=== PATIENT | female | born 1935 | race Native Hawaiian/Other Pacific Islander ===

== ENCOUNTER 2017-01-09 06:46 | Observation (INO) | payer MEDICARE ==
--- NOTE | 2017-01-09 08:01 | C.PDOC ---
History Of Present Illness 81 y/o female presents to ED for evaluation of left shoulder, forearm and wrist pain s/p fall this morning. Pt states that she slipped and fell while walking to the bathroom this morning, injuring the left side of her body. Sustained deformed fracture to left wrist. Denies head injury, or LOC. Otherwise, pt denies , headache, dizziness, chest pain, shortness of breath, fever, or chills. Time Seen by Provider: 01/09/17 07:32 Chief Complaint (Nursing): Upper Extremity Problem/Injury History Per: Patient History/Exam Limitations: no limitations Onset/Duration Of Symptoms: Hrs Current Symptoms Are (Timing): Still Present Quality: "Pain" Exacerbating Factor(s): Nothing Recent travel outside of the [place]: No Additional History Per: Patient Past Medical History Reviewed: Historical Data, Nursing Documentation, Vital Signs Vital Signs: Last Vital Signs Temp 98.1 F 01/09/17 06:56 Pulse 94 H 01/09/17 06:56 Resp 16 01/09/17 06:56 BP 185/73 H 01/09/17 06:56 Pulse Ox 97 01/09/17 08:36 - Medical History PMH: Arthritis, Asthma, Diabetes, HTN - [facility] Procedures ESOPHAGOGASTRODUODENOSCOPY [EGD] W/CLOSED BIOPSY (05/29/01) Family History: States: No Known Family Hx - Social History Hx Tobacco Use: No Hx Alcohol Use: No Hx Substance Use: No - Immunization History Hx Tetanus Toxoid Vaccination: No Hx Influenza Vaccination: Yes Hx Pneumococcal Vaccination: Yes Review Of Systems Except As Marked, All Systems Reviewed And Found Negative. Constitutional: Negative for: Fever, Chills Cardiovascular: Negative for: Chest Pain, Palpitations Respiratory: Negative for: Cough, Shortness of Breath Gastrointestinal: Negative for: Nausea, Vomiting, Abdominal Pain Musculoskeletal: Positive for: Shoulder Pain (left), Hand Pain (left wrist pain) . Negative for: Neck Pain, Back Pain Skin: Negative for: Rash, Bruising Neurological: Negative for: Weakness, Numbness, Headache, Dizziness Physical Exam - Physical Exam Appears: Non-toxic, No Acute Distress Skin: Normal Color, Warm, Dry, No Rash Head: Atraumatic, Normacephalic Eye(s): bilateral: Normal Inspection Oral Mucosa: Moist Neck: Supple Chest: Symmetrical Respiratory: No Accessory Muscle Use Extremity: Capillary Refill (<2 sec.), No Deformity Neurological/Psych: Oriented x3, Normal Speech, Normal Motor, Normal Sensation ED Course And Treatment O2 Sat by Pulse Oximetry: 97 (on RA) Pulse Ox Interpretation: Normal Progress Note: Left forearm, shoulder, and wrist x-ray ordered and reviewed. Pt was given Motrin for pain. Medical Decision Making Medical Decision Making: Discussed case with Dr. Kapadia as per request of Dr. Orellana. Will place a splint. Patient for OR today. Disposition Discussed With DrBen: Sangita Sun Doctor Will See Patient In The: Hospital Counseled Patient/Family Regarding: Studies Performed, Diagnosis - Disposition Disposition: HOSPITALIZED Disposition Time: 09:32 Condition: GUARDED Forms: Calpian (Kiswahili) - Clinical Impression Clinical Impression: Fracture dislocation of left wrist - Scribe Statement The provider has reviewed the documentation as recorded by the Scribe George Chappell All medical record entries made by the Scribe were at my direction and personally dictated by me. I have reviewed the chart and agree that the record accurately reflects my personal performance of the history, physical exam, medical decision making, and the department course for this patient. I have also personally directed, reviewed, and agree with the discharge instructions and disposition. Decision To Admit - Pt Status Changed To: Hospital Disposition Of: Observation - . Bed Request Type: Regular Patient Diagnosis: Fracture dislocation of left wrist
--- NOTE | 2017-01-09 08:41 | RAD ---
PROCEDURE: Radiographs of the Left Shoulder HISTORY: fall COMPARISON: No prior. FINDINGS: BONES: No fracture. JOINTS: Glenohumeral and acromioclavicular moderate osteoarthritis. SOFT TISSUES: Normal. OTHER FINDINGS: None. IMPRESSION: Glenohumeral and acromioclavicular moderate osteoarthritis.
--- NOTE | 2017-01-09 08:49 | RAD ---
PROCEDURE: Left Wrist Radiographs. HISTORY: fall COMPARISON: None. FINDINGS: BONES: Distal radial epiphyseal/radial styloid comminuted fracture with volar and radial sided fracture displacements. Major fracture fragment is radial and volar. Ulnar styloid fracture -well corticated - age indeterminate. With the distal radial comminuted, displaced impacted fractures with radiocarpal extension, the distal ulna is positive 7 mm variance and dorsally subluxed. Minimal 5th metacarpal shaft deformity consistent with remote fracture. Well corticated ossification chip and/or osseous avulsion 1st digit dorsal distal phalanx. JOINTS: As above SOFT TISSUES: Sensitive surrounding soft tissue edema OTHER FINDINGS: None. IMPRESSION: Multiple distal radial comminuted fractures -displaced ; radiocarpal extension
--- NOTE | 2017-01-09 10:07 | RAD ---
PROCEDURE: CHEST RADIOGRAPH, 1 VIEW HISTORY: Shortness of breath COMPARISON: 03/18/2014 FINDINGS: LUNGS: Mild venous congestion. Right hilar prominence. PLEURA: No pneumothorax or pleural fluid seen. CARDIOVASCULAR: Mild cardiomegaly. OSSEOUS STRUCTURES: Degenerative changes in the spine and shoulders. VISUALIZED UPPER ABDOMEN: Normal. OTHER FINDINGS: None. IMPRESSION: Mild venous congestion. Right hilar prominence.
[2017-01-09] MEDS ORDERED: Morphine 4 MG/ML VIAL ONE (10:09)
[2017-01-09 10:14] LABS: BASO # 0.1 K/uL (0.0-0.2); BASO % 0.5 % (0.0-2.0); EOS # 0.1 K/uL (0.0-0.7); EOS % 0.8 % (0.0-4.0); HEMATOCRIT 33.6 % (34.0-47.0); LYMPH # 2.3 K/uL (1.0-4.3); LYMPH % 22.4 % (20.0-40.0); MEAN CELL VOLUME 85.6 fL (81.0-99.0); MEAN CORPUSCULAR HEMOGLOBIN 28.1 pg (27.0-31.0); MEAN CORPUSCULAR HGB CONC 32.9 g/dL (33.0-37.0); MEAN PLATELET VOLUME 7.7 fL (7.2-11.7); MONO # 0.6 K/uL (0.0-0.8); MONO % 5.6 % (0.0-10.0); RED CELL DISTRIBUTION WIDTH 13.2 % (11.5-14.5); WHITE BLOOD COUNT 10.3 K/uL (4.8-10.8)
[2017-01-09 10:28] LABS: POTASSIUM 5.1 mmol/L (3.6-5.2)
[2017-01-09 10:31] LABS: ALB/GLOB RATIO 1.2 (1.0-2.1); BILIRUBIN,TOTAL 0.5 mg/dL (0.2-1.3); TOTAL PROTEIN 7.5 g/dL (6.3-8.3)
[2017-01-09 10:32] LABS: CALCIUM 9.7 mg/dl (8.6-10.4)
[2017-01-09 12:16] LABS: INR 0.9
--- NOTE | 2017-01-09 13:13 | RAD ---
PROCEDURE: Radiographs of the Left Forearm HISTORY: fall COMPARISON: None available. TECHNIQUE: Frontal and lateral views obtained. FINDINGS: BONES: Distal radial epiphyseal/radial styloid comminuted fracture with volar and radial sided fracture displacements. Major fracture fragment is radial and volar. Ulnar styloid fracture -well corticated - age indeterminate. With the distal radial comminuted, displaced impacted fractures with radiocarpal extension, the distal ulna is positive 7 mm variance and dorsally subluxed.Minimal 5th metacarpal shaft deformity consistent with remote fracture. Well corticated ossification chip and/or osseous avulsion 1st digit dorsal distal phalanx. JOINT SPACES: Distal radial comminuted fracture with intra-articular/radiocarpal extension OTHER FINDINGS: O proximal arm fractures. Minimal osseous hypertrophic changes medial lateral humeral epicondylar level and or contiguous calcific tendinopathy IMPRESSION: Distal radial comminuted displaced fractures with intra-articular/radiocarpal extension and impaction
[2017-01-09] MEDS ORDERED: Dextrose 5%/0.9% NS 1,000 ML IV SCH ×2 (13:15→13:43)
--- NOTE | 2017-01-09 13:45 | CP.PCM.PN ---
Subjective - Date & Time of Evaluation Date of Evaluation: 01/09/17 Time of Evaluation: 11:00 - Subjective Subjective: Orthopedic consultation requested Dr. Kapadia, full consult to follow 81F PMH: HTN, DM, asthma complains of left wrist pain and deformity after fall today. She denies numbness/tingling. She says she has pain on the left side of her body, and says now she has left knee pain. She Denies any CP/SOB prior to fall. Pain is controlled by pain medication. PSH: hysterectomy, c section All penicillin Objective - Vital Signs/Intake and Output Vital Signs (last 24 hours): Temp Pulse Resp BP Pulse Ox 98.1 F 75 18 177/70 H 96 01/09/17 06:56 01/09/17 13:05 01/09/17 13:05 01/09/17 13:05 01/09/17 13:05 - Medications Medications: Current Medications Home Med (Clonidine [Clonidine]) 1 tab PO BID MARCELINO Dextrose/Sodium Chloride (Dextrose 5%/0.9% Ns 1000 Ml) 1,000 mls @ 60 mls/hr IV .[id number] MARCELINO Losartan Potassium (Cozaar) 25 mg PO DAILY MARCELINO Montelukast Sodium (Singulair) 10 mg PO HS MARCELINO Oxycodone/Acetaminophen (Percocet 5/325 Mg Tab) 1 tab PO Q4H PRN PRN Reason: Pain, Mild (1-3) Stop: 01/12/17 13:17 Rosuvastatin Calcium (Crestor) 5 mg PO HS MARCELINO - Labs Labs: 01/09/17 10:08 01/09/17 10:08 PT 10.5 SECONDS (9.7-12.2) 01/09/17 11:50 INR 0.9 01/09/17 11:50 APTT 29 SECONDS (21-34) 01/09/17 11:50 - Constitutional Appears: Well, No Acute Distress - Extremities Exam Additional comments: splint intact: +ROM fingers flex/ext fingers at DIP/PIP/MCP joints and thumb. Sensation intact to rad/ulnar/med nerves with cap refill < 2 sec, all fingers warm. Left knee: no swelling, deformity, discoloration. NVID calves soft NT neg homans , skin to lower 1/2 B legs shiny with some mild peripheral edema noted. TTP lateral joint line left knee, mild pain with ROM (full, pt with history DJD) Assessment and Plan (1) Fracture dislocation of left wrist Assessment & Plan: splint elevation pain medication per Dr. Kapadia for exfix vs ORIF today NPO labs reviewed BUN > 50, IVF started patient seen by Dr. Sun for OR today Status: Acute Past Patient History - Past Medical History & Family History Past Medical History?: Yes - Past Social History Smoking Status: Never Smoked - CARDIAC Hx Hypertension: Yes - PULMONARY Hx Asthma: Yes - ENDOCRINE/METABOLIC Hx Diabetes Mellitus Type 2: Yes - MUSCULOSKELETAL/RHEUMATOLOGICAL Hx Arthritis: Yes - PSYCHIATRIC Hx Substance Use: No - SURGICAL HISTORY Hx Surgeries: Yes Hx Section: Yes (x3) Hx Hysterectomy: Yes - ANESTHESIA Hx Anesthesia: Yes Hx Anesthesia Reactions: No Hx Malignant Hyperthermia: No
--- NOTE | 2017-01-09 15:05 | RAD ---
PROCEDURE: Left Knee Radiographs. HISTORY: Pain. COMPARISON: None. FINDINGS: BONES: No fracture. JOINTS: Diffuse osteophytosis consistent with osteoarthritis. Medial femoral tibial joint space narrow. Lateral oblique impedes joint spacing assessment JOINT EFFUSION: None suggested OTHER FINDINGS: Faint posterior thigh arterial vascular calcifications IMPRESSION: Arthrosis. No fracture or lytic lesion
[2017-01-09] MEDS ORDERED: Clindamycin 600mg/50ml NS 600 MG/50 ML BAG IVPB ONE (16:57)
[2017-01-09] MEDS ORDERED: Bupivacaine 0.25% Inj(30mL) ONE ×2 (17:12→19:42)
[2017-01-09] MEDS ORDERED: Sodium Chloride 0.9% 500 ML IV ONE (17:25)
[2017-01-09] MEDS ORDERED: Rocuronium 10 mg/ml (10 ml) ONE (17:30)
[2017-01-09] MEDS ORDERED: Propofol 10 mg/ml Inj (20 ML) ONE (17:30)
[2017-01-09] MEDS ORDERED: CLONIDINE PO SCH (18:00)
[2017-01-09] MEDS ORDERED: Lactated Ringer's 1,000 ML IV ONE (18:05)
[2017-01-09] MEDS: Bupivacaine 0.5% Inj(30mL) ONE ×2 (18:26→19:22)
--- NOTE | 2017-01-09 18:56 | CP.PCM.HP ---
History of Present Illness - History of Present Illness History of Present Illness: Chief complaint: Fall and injury to the left forearm History present illness: 80-year-old female with a history of bronchial asthma, hypertension, diabetes, hypercholesteremia, allergic rhinitis, osteoporosis, diabetic neuropathy, bronchial asthma and bronchitis. Patient also has a chronic renal insufficiency. Chronic pedal edema. Patient came to the emergency room after a fall happened today this morning in the house, while she was getting ready to come to the office. She tripped and fell on the left side of the body, and she landed on her left side and she started having pain over the left wrist and the deformity. Patient came to the emergency room, and noted to have a possible fracture of the left distal radius. And needed further management. Patient also having significant problem in walking, swelling and pain in the left leg. She is otherwise alert awake oriented Past medical history: Diabetes hypertension and hypercholesteremia bronchial asthma renal insufficiency chronic pedal edema Allergy and patient is allergic to penicillin. Surgical history: on history to me Personal history nonsmoker nonalcoholic, lives with the family review of system: Currently having pain over the left side of the body, complaining of pain in the swelling in the left wrist and left ankle. No chest pain or shortness of breath, denies an abdominal swelling, bilateral leg swelling noted Medications: Patient currently taking omeprazole, zolpidem, gabapentin, losartan, glimepride Levemir, Lasix Vital signs reviewed No neck vein distention noted Chest good air entry bilaterally, no wheezing or rales noted CVS regular heart sound, no murmur noted Abdomen soft, nontender. Patient has a edema bilaterally. Patient has a significant deformity in the left wrist, and associated swelling. [employer]SW[employer] alert awake oriented 3, no functional neurological deficit, X-ray of the left wrist showing evidence of comminuted distal radial fracture left upper extremity. Chest x-ray nonspecific. EKG nonspecific. Medications reviewed Assessment and recommendation: 80-year-old female with history of diabetes hypertension and hypercholesteremia , bronchial asthma , pedal edema admitted now with left radial fracture, following a fall, and also significant difficulty in getting around. Patient is having difficult time in standing up, and walking. She will need a further management including subacute rehabilitation, physical therapy. Surgical evaluation by orthopedic. Possible intervention. And will follow the patient. Glucose control DVT prophylaxis Present on Admission - Present on Admission Any Indicators Present on Admission: No History of DVT/PE: No History of Uncontrolled Diabetes: No Urinary Catheter: No Decubitus Ulcer Present: No Past Patient History - Past Medical History & Family History Past Medical History?: Yes - Past Social History Smoking Status: Never Smoked - CARDIAC Hx Hypertension: Yes - PULMONARY Hx Asthma: Yes - ENDOCRINE/METABOLIC Hx Diabetes Mellitus Type 2: Yes - MUSCULOSKELETAL/RHEUMATOLOGICAL Hx Arthritis: Yes - PSYCHIATRIC Hx Substance Use: No - SURGICAL HISTORY Hx Surgeries: Yes Hx Section: Yes (x3) Hx Hysterectomy: Yes - ANESTHESIA Hx Anesthesia: Yes Hx Anesthesia Reactions: No Hx Malignant Hyperthermia: No Meds Allergies/Adverse Reactions: Allergies Allergy/AdvReac Type Severity Reaction Status Date / Time Penicillins Allergy Verified 01/09/17 07:13 Results - Vital Signs Recent Vital Signs: Last Vital Signs Temp 98.1 F 01/09/17 06:56 Pulse 81 01/09/17 16:07 Resp 18 01/09/17 16:07 BP 196/68 H 01/09/17 16:07 Pulse Ox 97 01/09/17 16:07 - Labs Result Diagrams: 01/09/17 10:08 01/09/17 10:08 Labs: Laboratory Results - last 24 hr 01/09/17 01/09/17 01/09/17 10:08 10:08 10:08 WBC 10.3 RBC 3.92 Hgb 11.0 Hct 33.6 L MCV 85.6 MCH 28.1 MCHC 32.9 L RDW 13.2 Plt Count 162 MPV 7.7 Neut % (Auto) 70.7 Lymph % (Auto) 22.4 [facility] % (Auto) 5.6 Eos % (Auto) 0.8 Baso % (Auto) 0.5 Neut # 7.3 H Lymph # 2.3 [facility] # 0.6 Eos # 0.1 Baso # 0.1 PT INR APTT Sodium 139 Potassium 5.1 Chloride 103 Carbon Dioxide 23 Anion Gap 18 BUN 59 H Creatinine 1.7 H Est GFR ( Amer) 35 Est GFR (Non-Af Amer) 29 POC Glucose (mg/dL) Random Glucose 149 H Calcium 9.7 Total Bilirubin 0.5 AST 35 ALT 28 Alkaline Phosphatase 91 Total Protein 7.5 Albumin 4.1 Globulin 3.4 Albumin/Globulin Ratio 1.2 Blood Type B POSITIVE Blood Type Confirm B POSITIVE Antibody Screen Positive Antibody Identification Anti E 01/09/17 01/09/17 11:50 15:01 WBC RBC Hgb Hct MCV MCH MCHC RDW Plt Count MPV Neut % (Auto) Lymph % (Auto) [facility] % (Auto) Eos % (Auto) Baso % (Auto) Neut # Lymph # [facility] # Eos # Baso # PT 10.5 INR 0.9 APTT 29 Sodium Potassium Chloride Carbon Dioxide Anion Gap BUN Creatinine Est GFR ( Amer) Est GFR (Non-Af Amer) POC Glucose (mg/dL) 99 Random Glucose Calcium Total Bilirubin AST ALT Alkaline Phosphatase Total Protein Albumin Globulin Albumin/Globulin Ratio Blood Type Blood Type Confirm Antibody Screen Antibody Identification
[2017-01-09] MEDS ORDERED: Neostigmine Methylsulfate 3mg/3ml Syringe IV ONE (19:23)
[2017-01-09] MEDS: HYDROmorphone 0.5 mg/0.5 ml ISec IVP PRN ×5 (19:45→20:48)
[2017-01-09] MEDS: Albuterol-Ipratrop 3 mg / 0.5 (3 ml) UD INH SCH (20:23)
[2017-01-09] MEDS: (Novolin R) Insulin Human Regular 100 units/ml vial SC SCH (22:21)
[2017-01-09 22:36] VITALS: RESP 20
[2017-01-10] MEDS: Clindamycin 300 MG in Sodium Chloride 0.9% 50 ML IVPB SCH ×3 (00:32→12:06)
[2017-01-10] MEDS: Albuterol-Ipratrop 3 mg / 0.5 (3 ml) UD INH SCH ×3 (01:18→13:38)
[2017-01-10] MEDS ORDERED: HYDROmorphone 1 mg/ml ISec IVP STA (01:25)
--- NOTE | 2017-01-10 05:33 | OP ---
PROCEDURE DATE: 01/09/2017 PREOPERATIVE DIAGNOSIS: Comminuted fracture of the distal radius with displacement. POSTOPERATIVE DIAGNOSES: Severely comminuted fracture with displacement and severe osteoporosis. PROCEDURES: 1. Closed reduction, internal fixation, external fixation with 2 K wires. 2. Close reduction of the fracture and application of external fixators with insertion of 2 pins in the radius and 1 pin in the metacarpal bone and application of stalked external fixator. 3. Local anesthesia block with Marcaine. 4. Application of anterior volar splint. PROCEDURE: Prior to the procedure, risk and benefits of the surgery, prognosis and complications were explained to the patient and patient's including infection, cardiac, malunion, nonunion, need for future surgery, permanent weakness, permanent numbness, possible loss of life and limb and all the associated complications of diabetes mellitus and the patient fully understand and is agreeable. The left wrist was identified as the wrist to be operated, was prepped and draped in the usual manner. Multiplane fluoroscopy was used throughout the procedure. The patient was found to have severe comminution of the distal radius and also severe osteopenia and osteoporosis. At this time, it was decided to put an external fixator, limited internal fixation. Two 2.5 mm pins were inserted to the mid radius under fluoroscopic guidance and two metacarpal pins were introduced into the second metacarpal, one in the base, one in the shaft. Due to severe osteopenia, one of the pins was not fixing the second metacarpal. At this point, we decided to do a close reduction and satisfactory alignment was obtained; however, noted was severe comminution bone loss at the fracture site. The proximal and distal pin systems were connected with an external fixator and it was stalked with an additional connecting bar that is used for finger fractures and once this construct was obtained, x-ray revealed satisfactory alignment of the fracture. At this time, two K wires were introduced from the radial styloid process to the shaft to the radius and the pins went across the fracture site in to the radial aspect of the distal radius and the pin sites were thoroughly debrided, closed and Marcaine was used for local anesthesia block. Anterior volar splint was obtained. Multiplane fluoroscopy pictures revealed that the fracture was reduced to acceptable alignment. However noted was severe comminution and osteoporosis of fracture. The patient tolerated the procedure well. Left the operative room to the recovery room in satisfactory condition. Diane Kapadia MD
[2017-01-10 07:07] LABS: BASO % 0.2 % (0.0-2.0); HEMATOCRIT 32.6 % (34.0-47.0); LYMPH # 0.6 K/uL (1.0-4.3); LYMPH % 4.2 % (20.0-40.0); MEAN CORPUSCULAR HEMOGLOBIN 27.3 pg (27.0-31.0); MEAN CORPUSCULAR HGB CONC 31.7 g/dL (33.0-37.0); MEAN PLATELET VOLUME 7.6 fL (7.2-11.7); MONO # 0.8 K/uL (0.0-0.8); MONO % 5.9 % (0.0-10.0); NRBC % 0.1 % (0.0-2.0); PLATELET COUNT 169 K/uL (130-400); RED CELL DISTRIBUTION WIDTH 13.8 % (11.5-14.5); WHITE BLOOD COUNT 14.4 K/uL (4.8-10.8)
[2017-01-10 07:45] LABS: ALB/GLOB RATIO 1.2 (1.0-2.1); BILIRUBIN,TOTAL 0.6 mg/dL (0.2-1.3); TOTAL PROTEIN 7.1 g/dL (6.3-8.3)
[2017-01-10] MEDS ORDERED: (Novolin R) Insulin Human Regular 100 units/ml vial SC ONE (07:45)
[2017-01-10] MEDS: (Novolin R) Insulin Human Regular 100 units/ml vial SC SCH ×3 (07:45→18:41)
[2017-01-10 07:46] LABS: CALCIUM 8.9 mg/dl (8.6-10.4)
[2017-01-10] MEDS: Oxycodone/Acetaminophen 5/325 mg Tab PO PRN ×2 (07:48→13:25)
[2017-01-10 09:12] LABS: MYELOCYTE 1 % (0-0); NEUTROPHIL 90 % (50-75); TOTAL CELLS COUNTED 100
--- NOTE | 2017-01-10 09:37 | CON ---
DATE: I was called in by Dr. Sun to see this patient. HISTORY OF PRESENT ILLNESS: This elderly female sustained a fall on day of admission and sustained an injury to the left wrist area. She was initially seen in the emergency room at the [facility] where she was diagnosed with comminuted fracture of the distal radius. She was treated by stabilization in a splint. Examination revealed an elderly female in an anterior splint and complaining of severe pain over the left wrist area. Range of motion of the wrist is painful. X-rays reveals a comminuted fracture of the left distal radius with severe osteoporosis. I discussed the treatment options with the patient and the patient's . The options are now open reduction with internal fixation, possible external fixation, and limited internal fixation. Prognosis and complications including infection, cardiac, pulmonary, recurrence, failure of fixation, need for future surgery, permanent weakness, permanent numbness, possible loss of life and limb, etc., are explained. The patient fully understands this and agreeable. All the questions were answered. The patient has diabetes mellitus. On the other associated complication of diabetes mellitus, this fracture surgery was explained. The patient fully understands and is agreeable. All the questions were answered. Diane Kapadia MD
--- NOTE | 2017-01-10 09:59 | RAD ---
PROCEDURE: Intraoperative fluoroscopy HISTORY: LEFT DISTAL RADIUS FX COMPARISON: Not available TECHNIQUE: Intraoperative fluoroscopy was provided for ORIF distal radial fracture. Total time of fluoroscopy was 108.6 seconds. FINDINGS: Multiple fluoroscopic spot films are submitted. Films are on file for review. IMPRESSION: Fluoroscopy provided.
[2017-01-10] MEDS ORDERED: Sod Polystyrene Sulf 15 gm/60 ml Oral Susp PO ONE ×2 (10:30→12:00)
--- NOTE | 2017-01-10 11:18 | RAD ---
PROCEDURE: Left Foot Radiographs. HISTORY: trauma COMPARISON: None. FINDINGS: BONES: No fractures appreciated or suspicious lytic or blastic changes. Diffuse osteopenia is appreciate suggesting osteoporosis. JOINTS: Joint space narrowing and articular cortical sclerosis appreciate throughout the interphalangeal joints diffusely as well as the tarsal tarsal and tarsometatarsal articulations compatible with osteoarthritis. Lesser similar changes appears of the 1st metatarsophalangeal with a mild hallux valgus deformity appreciated. SOFT TISSUES: Normal. OTHER FINDINGS: None. IMPRESSION: No displaced fracture identified on acute basis. Diffuse osteopenia suggests osteoporosis. Diffuse degenerate changes are noted as discussed above.
[2017-01-10] MEDS: (Novolin 70/30) NPH/Regular 70/30 Units/ml 10 ml vial SC SCH ×2 (12:07→18:40)
--- NOTE | 2017-01-10 12:25 | PCM.ANESB1 ---
Interscalene Block - Brachial Plexus Date of Procedure: 01/10/17 Procedure Performed: Interscalene Block of Brachial Plexus Left - Procedure Interscalene Block of Brachial Plexus: This procedure was explained to the patient that it is for post-operative pain management. Consent was obtained after a thorough discussion with the patient regarding the benefits and possible complications of local anesthetic block of the Brachial Plexus at the Interscalene area. The patient was brought to the Operating Room and standard monitors were applied. Time out was held with the circulating nurse to confirm the correct surgery and appropriate block. After applying Oxygen by nasal cannula and administering IV Sedation, the patient's head was gently rotated away from the _LEFT_operative shoulder and the anterior scalene groove was carefully palpated. The ultrasound transducer was then applied to the skin in the transverse plane and the brachial plexus was visualized lateral to the carotid artery and in between the anterior and middle scalene muscles. After identification,the anterior lateral portion of the neck was prepped with Betadine solution three times and Lidocaine 1% was injected subcutaneously for topical analgesia. At this point, a # 22 gauge Stimuplex 2 inches insulated needle was inserted into the interscalene groove and directed in a caudal and midline direction. The needle was inserted lateral to the ultrasound transducer in-plane towards the brachial plexus in a [id number] direction. Needle advancement was performed carefully under direct ultrasound visualization. After repeated negative aspiration,_were injected and this was followed with _10__ cc of ___ 0.25_ % _bupivicaine__. Under ultrasound guidance the local anesthetics were observed surrounding the roots of the brachial plexus. The needle was removed intact and sterile dressing was applied. The patient had stable vital signs, was conscious and in no apparent distress. The patient tolerated the supraclavicular block of the brachial plexus well with stable vital signs, no complaints.
[2017-01-10] MEDS: Saccharomyces Boulardi 250 mg Cap PO SCH ×2 (13:25→18:40)
--- NOTE | 2017-01-10 13:49 | CP.PCM.PN ---
Subjective - Date & Time of Evaluation Date of Evaluation: 01/10/17 Time of Evaluation: 13:48 - Subjective Subjective: Patient states she has a lot of pain in her hand. the medication helps, but doesn't last very long. Also complains of nausea, no vomiting. New complaint of foot and ankle pain today. Objective - Vital Signs/Intake and Output Vital Signs (last 24 hours): Temp Pulse Resp BP Pulse Ox 97.5 F L 93 H 20 146/66 96 01/10/17 07:00 01/10/17 13:27 01/10/17 07:00 01/10/17 13:27 01/10/17 07:00 Intake and Output: 01/10/17 01/10/17 06:59 18:59 Intake Total 760 Output Total 100 Balance 660 - Medications Medications: Current Medications Albuterol/Ipratropium (Duoneb 3 Mg/0.5 Mg (3 Ml) Ud) 3 ml INH RQ6 ON LICENSE OF [facility] Last Admin: 01/10/17 13:38 Dose: 3 ml Clonidine HCl (Catapres) 0.1 mg PO BID ON LICENSE OF [facility] Last Admin: 01/10/17 09:25 Dose: 0.1 mg Hydralazine HCl (Apresoline) 25 mg PO Q8 ON LICENSE OF [facility] Last Admin: 01/10/17 13:25 Dose: 25 mg Clindamycin Phosphate 300 mg/ (Sodium Chloride) 52 mls @ 100 mls/hr IVPB Q6H ON LICENSE OF [facility] Last Admin: 01/10/17 12:06 Dose: 100 mls/hr Insulin Human Isoph/Insulin Regular (Novolin 70/30 (70/30 Units/Ml) 10 Ml) 20 units SC BID ON LICENSE OF [facility] Last Admin: 01/10/17 12:07 Dose: 20 units Insulin Human Regular (Novolin R) 0 unit SC ACHS MARCELINO PRN Reason: Protocol Last Admin: 01/10/17 12:07 Dose: 8 unit Montelukast Sodium (Singulair) 10 mg PO HS ON LICENSE OF [facility] Last Admin: 01/09/17 22:45 Dose: 10 mg Ondansetron HCl (Zofran Inj) 4 mg IVP Q6 PRN PRN Reason: Nausea/Vomiting Last Admin: 01/10/17 13:25 Dose: 4 mg Oxycodone/Acetaminophen (Percocet 5/325 Mg Tab) 1 tab PO Q4H PRN PRN Reason: Pain, Mild (1-3) Stop: 01/12/17 13:17 Last Admin: 01/10/17 13:25 Dose: 1 tab Rosuvastatin Calcium (Crestor) 5 mg PO HS MARCELINO Saccharomyces Boulardii (Florastor) 250 mg PO TID MARCELINO Last Admin: 01/10/17 13:25 Dose: 250 mg - Labs Labs: 01/10/17 06:59 01/10/17 06:59 PT 10.5 SECONDS (9.7-12.2) 01/09/17 11:50 INR 0.9 01/09/17 11:50 APTT 29 SECONDS (21-34) 01/09/17 11:50 - Extremities Exam Additional comments: lue: dressing and sling intact. no visible drainage. Patient reluctant to move fingers, but does flex and extend all fingers limited ROM incl thumb. Sensation intact. Fingers warm, good cap refill Assessment and Plan (1) Fracture dislocation of left wrist Assessment & Plan: POD#1 s/p left wrist percutaneous pinning and external fixation -pain meds -zofran -elevation -cont OT/PT, encourage OOB -ortho stable for d/c home and follow up Dr. Kapadia 7-10 days call for appointment -keep dressing clean, dry and intact -d/w Dr. Kapadia, agrees with above Status: Acute Radiology Interpretation - Radiology Interpretation #2 Interpretation: Patient Name / ID : JEFF HOYOS Z / [id number] Exam Date : 01/10/2017 10:44:14 ( Approved ) Study Comment : Sex / Age : F / 81Y Creator : Chava De Leon MD Dictator : Chava De Leon MD Clinical Courier : Hide Inspector : Chava De Leon MD Approver2 : Report Date : 01/10/2017 11:16:07 My Comment : PROCEDURE: Left Foot Radiographs. HISTORY: trauma COMPARISON: None. FINDINGS: BONES: No fractures appreciated or suspicious lytic or blastic changes. Diffuse osteopenia is appreciate suggesting osteoporosis. JOINTS: Joint space narrowing and articular cortical sclerosis appreciate throughout the interphalangeal joints diffusely as well as the tarsal tarsal and tarsometatarsal articulations compatible with osteoarthritis. Lesser similar changes appears of the 1st metatarsophalangeal with a mild hallux valgus deformity appreciated. SOFT TISSUES: Normal. OTHER FINDINGS: None. IMPRESSION: No displaced fracture identified on acute basis. Diffuse osteopenia suggests osteoporosis. Diffuse degenerate changes are noted as discussed above. atient Name / ID : JEFF HOYOS Z / [id number] Exam Date : 01/09/2017 14:40:28 ( Approved ) Study Comment : Sex / Age : F / 81Y Creator : Khadra Vance V. Dictator : Khadra Vance V. Clinical Courier : Hide Inspector : Khadra Vance V. Approver2 : Report Date : 01/09/2017 15:03:53 My Comment : PROCEDURE: Left Knee Radiographs. HISTORY: Pain. COMPARISON: None. FINDINGS: BONES: No fracture. JOINTS: Diffuse osteophytosis consistent with osteoarthritis. Medial femoral tibial joint space narrow. Lateral oblique impedes joint spacing assessment JOINT EFFUSION: None suggested OTHER FINDINGS: Faint posterior thigh arterial vascular calcifications IMPRESSION: Arthrosis. No fracture or lytic lesion
--- NOTE | 2017-01-10 14:22 | RAD ---
PROCEDURE: Left Ankle Radiographs. HISTORY: trauma COMPARISON: None FINDINGS: BONES: Normal. No fracture. Plantar and Achilles Tendon insertion calcaneal spurs. JOINTS: Normal. No osteoarthritis. Ankle mortise maintained. Talar dome intact SOFT TISSUES: Normal. OTHER FINDINGS: None. IMPRESSION: No acute findings related to/accounting for the clinical presentation.
--- NOTE | 2017-01-10 15:56 | RAD ---
PROCEDURE: Left Wrist Radiographs. HISTORY: s/p repair COMPARISON: Left wrist 01/09/2017. FINDINGS: BONES: A status post open reduction internal fixation of complex Colles fracture proximal left radius with K-wires transfixing the major fracture fragments at the distal right radius. No definite subluxation or dislocation. Adequate reduction appears to have been achieved. Ulna styloid fracture again evident. Excision hardware seen across the medial left metacarpal bones and distal left radius. JOINTS: No dislocation. SOFT TISSUES: Postop changes seen the local soft tissues at the operative site. OTHER FINDINGS: None. IMPRESSION: Status post ORIF distal left radial fracture as per above.
--- NOTE | 2017-01-10 15:59 | RAD ---
PROCEDURE: Radiographs of the Left Forearm HISTORY: s/p repair frascture COMPARISON: None available. TECHNIQUE: Frontal and lateral views obtained. FINDINGS: BONES: PA seen to be status post open reduction internal fixation of distal right radial fracture with comminuted distal radial fracture reduced using 2 K-wires. External fixators are placed at the lateral metacarpal bones as well as the distal right radial diaphysis. Postop soft tissue changes are identified. No gross dislocation evident. JOINT SPACES: Unremarkable. OTHER FINDINGS: None. IMPRESSION: Status post ORIF distal left radial fracture as discussed above with external fixators in place as well.
--- NOTE | 2017-01-10 16:00 | RAD ---
PROCEDURE: Left Hand Radiographs. HISTORY: s/p repair COMPARISON: None. FINDINGS: BONES: Pain status post open reduction and internal fixation of distal left radial fracture with K-wires transfixing the major fracture fragment. External fixators identified at the distal radial diaphysis as well as the proximal 1st metacarpal bone. No dislocation evident at this time. Mages osseus elements of the left hand are unremarkable as imaged but are partially obscured by external fixator device distally. JOINTS: Normal. No osteoarthritic changes. SOFT TISSUES: Normal. OTHER FINDINGS: None. IMPRESSION: Status post ORIF distal left radial fracture with external fixators in place as discussed above.
--- NOTE | 2017-01-10 16:53 | CP.PCM.PN ---
Subjective - Date & Time of Evaluation Date of Evaluation: 01/10/17 Time of Evaluation: 16:53 Objective - Vital Signs/Intake and Output Vital Signs (last 24 hours): Temp Pulse Resp BP Pulse Ox 97.5 F L 93 H 20 146/66 96 01/10/17 07:00 01/10/17 13:27 01/10/17 07:00 01/10/17 13:27 01/10/17 07:00 Intake and Output: 01/10/17 01/10/17 06:59 18:59 Intake Total 760 240 Output Total 100 Balance 660 240 - Medications Medications: Current Medications Albuterol/Ipratropium (Duoneb 3 Mg/0.5 Mg (3 Ml) Ud) 3 ml INH RQ6 MARCELINO Last Admin: 01/10/17 13:38 Dose: 3 ml Clonidine HCl (Catapres) 0.1 mg PO BID MARCELINO Last Admin: 01/10/17 09:25 Dose: 0.1 mg Docusate Sodium (Colace) 100 mg PO BID MARCELINO Hydralazine HCl (Apresoline) 25 mg PO Q8 [facility] Last Admin: 01/10/17 13:25 Dose: 25 mg Clindamycin Phosphate 300 mg/ (Sodium Chloride) 52 mls @ 100 mls/hr IVPB Q6H [facility] Last Admin: 01/10/17 12:06 Dose: 100 mls/hr Insulin Human Isoph/Insulin Regular (Novolin 70/30 (70/30 Units/Ml) 10 Ml) 20 units SC BID MARCELINO Last Admin: 01/10/17 12:07 Dose: 20 units Insulin Human Regular (Novolin R) 0 unit SC ACHS MARCELINO PRN Reason: Protocol Last Admin: 01/10/17 12:07 Dose: 8 unit Montelukast Sodium (Singulair) 10 mg PO HS [facility] Last Admin: 01/09/17 22:45 Dose: 10 mg Morphine Sulfate (Morphine) 2 mg IVP Q4 PRN PRN Reason: Pain, moderate (4-7) Ondansetron HCl (Zofran Inj) 4 mg IVP Q6 PRN PRN Reason: Nausea/Vomiting Last Admin: 01/10/17 13:25 Dose: 4 mg Ondansetron HCl (Zofran Inj) 4 mg IVP Q6H [facility] Stop: 01/11/17 08:01 Last Admin: 01/10/17 14:29 Dose: Not Given Oxycodone/Acetaminophen (Percocet 5/325 Mg Tab) 1 tab PO Q4H PRN PRN Reason: Pain, Mild (1-3) Stop: 01/12/17 13:17 Last Admin: 01/10/17 13:25 Dose: 1 tab Rosuvastatin Calcium (Crestor) 5 mg PO HS [facility] Saccharomyces Boulardii (Florastor) 250 mg PO TID [facility] Last Admin: 01/10/17 13:25 Dose: 250 mg - Labs Labs: 01/10/17 06:59 01/10/17 06:59 PT 10.5 SECONDS (9.7-12.2) 01/09/17 11:50 INR 0.9 01/09/17 11:50 APTT 29 SECONDS (21-34) 01/09/17 11:50
[2017-01-10 17:52] VITALS: BP 125/66; PULSE 101; TEMP 98; O2SAT 95
--- NOTE | 2017-01-12 10:19 | CARD ---
APPROVED REPORT EKG Measurement Heart [id number] <Conclusion> Normal sinus rhythm Right bundle branch block Abnormal ECG
--- NOTE | 2017-01-12 10:20 | CARD ---
APPROVED REPORT EKG Measurement Heart [id number] <Conclusion> Normal sinus rhythm Right bundle branch block Abnormal ECG
== END 2017-01-10 19:33 | disposition home or self-care (01) ==
LOC: C.ER 06:46 → C.9E 09:32 → C.6T 16:14
PROVIDERS: ADMIT Internal Medicine; ATTEND Internal Medicine
DX: S52.502A Unspecified fracture of the lower end of left radius, initial encounter for closed fracture (principal); S62.609A Fracture of unspecified phalanx of unspecified finger, initial encounter for closed fracture; N18.9 Chronic kidney disease, unspecified; W01.0XXA Fall on same level from slipping, tripping and stumbling without subsequent striking against object, initial encounter; Y93.01 Activity, walking, marching and hiking; J45.909 Unspecified asthma, uncomplicated; I12.9 Hypertensive chronic kidney disease with stage 1 through stage 4 chronic kidney disease, or unspecified chronic kidney disease
CPT/HCPCS: 20690; 25606; 36415; 71010; 73030; 73090; 73100; 73110; 73120; 73560; 73600; 73620; 76000; 80053; 82948; 85025; 85610; 85730; 86850; 86870; 86900; 86905; 93005; 94640; 96374; 97162; 97166; 97530; 99285; G0378; G8978; G8979; G8987; G8988; J1170; J2270; J2405; J2704; J2710; J3010; J7040; J7042; J7120

== ENCOUNTER 2017-04-01 14:42 | Emergency (ER) | payer MEDICARE ==
[2017-04-01] MEDS ORDERED: Albuterol-Ipratrop 3 mg / 0.5 (3 ml) UD ONE ×4 (15:14→17:22)
[2017-04-01 15:15] VITALS: TEMP 98.2; O2SAT 97; BMI 35.5
[2017-04-01] MEDS ORDERED: Albuterol-Ipratrop 3 mg / 0.5 (3 ml) UD INH STA (15:31)
--- NOTE | 2017-04-01 15:36 | C.PDOC ---
History Of Present Illness 81 year old female with Hx of DM, asthma presents to the ED c/o cough with mucous for the past week. Patient reports having recently surgery for a fractured wrist .Patient denies vomit, nausea, diarrhea, weakness, numbness. Time Seen by Provider: 04/01/17 15:11 Chief Complaint (Nursing): Shortness Of Breath History Per: Patient, Family History/Exam Limitations: no limitations Onset/Duration Of Symptoms: Days Current Symptoms Are (Timing): Still Present Quality: "Pain" Exacerbating Factor(s): Coughing Associated Symptoms: Productive Cough, Ankle/Leg Swelling. denies: Fever, Chills Recent travel outside of the [place]: No Additional History Per: Patient Past Medical History Reviewed: Historical Data, Nursing Documentation, Vital Signs Vital Signs: Last Vital Signs Temp 98.2 F 04/01/17 14:46 Pulse 86 04/01/17 18:00 Resp 22 04/01/17 18:00 BP 146/62 04/01/17 18:00 Pulse Ox 97 04/01/17 18:12 - Medical History PMH: Arthritis, Asthma, Diabetes, Fractures (left wrist), HTN, Parkinson's Disease, Pneumonia Surgical History: No Surg Hx - [facility] Procedures ESOPHAGOGASTRODUODENOSCOPY [EGD] W/CLOSED BIOPSY (05/29/01) Family History: States: Unknown Family Hx - Social History Hx Tobacco Use: No Hx Alcohol Use: No Hx Substance Use: No - Immunization History Hx Tetanus Toxoid Vaccination: No Hx Influenza Vaccination: No Hx Pneumococcal Vaccination: Yes Review Of Systems Constitutional: Negative for: Fever, Chills Cardiovascular: Positive for: Chest Pain. Negative for: Palpitations Respiratory: Positive for: Cough, Shortness of Breath Gastrointestinal: Negative for: Nausea, Vomiting, Abdominal Pain Skin: Negative for: Rash Neurological: Negative for: Weakness, Numbness Physical Exam - Physical Exam Appears: Non-toxic, No Acute Distress Skin: Normal Color, Warm, Dry Head: Atraumatic, Normacephalic Nose: No Discharge Oral Mucosa: Moist Neck: Normal ROM, Supple Chest: Symmetrical Cardiovascular: Rhythm Regular, No Murmur Respiratory: No Rales, No Rhonchi, Wheezing (B/L expiratory wheezes ) Gastrointestinal/Abdominal: Soft, No Tenderness, No Distention, No Rebound Extremity: Normal ROM, Pedal Edema (2+ ), No Calf Tenderness, No Swelling Neurological/Psych: Oriented x3, Normal Speech, Normal Cognition ED Course And Treatment - Laboratory Results Result Diagrams: 04/01/17 15:52 04/01/17 15:52 ECG: Interpreted By Me, Viewed By Me ECG Rhythm: Sinus Rhythm, R BBB ECG Interpretation: Abnormal Interpretation Of ECG: EKG sinus at 93 with RBBB and left axis deviation Rate From EC O2 Sat by Pulse Oximetry: 97 (On RA) Pulse Ox Interpretation: Normal - Radiology CXR: Interpreted by Me, Viewed By Me CXR Interpretation: No: No Acute Disease, Infiltrates Medical Decision Making Medical Decision Making: Plan: * EKG ordered * Blood work ordered * CXR ordered * Albuterol 3 ml INH given * Solumedrol 125 mg IVP given * Blood culture collected * Nebulizer treatment given On reevaluation pt states she feels better, stable enough for d/c and given instructions to follow up with her PMD in 1-2 days for further evaluation. Disposition - Disposition Referrals: Sangita Sun MD [Staff Provider] - Disposition: HOME/ ROUTINE Disposition Time: 17:30 Condition: IMPROVED Additional Instructions: Thank you for letting us take care of you today. The emergency medical care you received today was directed at your acute symptoms. If you were prescribed any medication, please fill it and take as directed. It may take several days for your symptoms to resolve. Return to the Emergency Department if your symptoms worsen, do not improve, or if you have any other problems. Please contact your doctor or call one of the physicians/clinics you have been referred to that are listed on the Patient Visit Information form that is included in your discharge packet. Bring any paperwork you were given at discharge with you along with any medications you are taking to your follow up visit. Our treatment cannot replace ongoing medical care by a primary care provider (PCP) outside of the emergency department. Thank you for allowing the [facility] team to be part of your care today. Follow up with your doctor in 1-2 days for re-evaluation. Please return to the emergency room if you have any concerns. Prescriptions: Azithromycin [Zithromax] 250 mg PO DAILY #6 tab Benzonatate [Tessalon Perle] 100 mg PO Q8 PRN #15 capsule PRN Reason: Cough predniSONE [Prednisone] 40 mg PO DAILY #10 tab Instructions: Asthma (ED) Forms: [employer] (Turkmen) - Clinical Impression Clinical Impression: Asthma exacerbation - Scribe Statement The provider has reviewed the documentation as recorded by the Scribe Billy Dorman All medical record entries made by the Scribe were at my direction and personally dictated by me. I have reviewed the chart and agree that the record accurately reflects my personal performance of the history, physical exam, medical decision making, and the department course for this patient. I have also personally directed, reviewed, and agree with the discharge instructions and disposition.
[2017-04-01 15:57] LABS: BASO # 0.1 K/uL (0.0-0.2); BASO % 0.6 % (0.0-2.0); EOS # 0.3 K/uL (0.0-0.7); EOS % 3.2 % (0.0-4.0); HEMATOCRIT 32.3 % (34.0-47.0); LYMPH % 20.7 % (20.0-40.0); MEAN CELL VOLUME 85.4 fL (81.0-99.0); MEAN CORPUSCULAR HEMOGLOBIN 27.4 pg (27.0-31.0); MEAN CORPUSCULAR HGB CONC 32.1 g/dL (33.0-37.0); MEAN PLATELET VOLUME 7.2 fL (7.2-11.7); MONO # 1.1 K/uL (0.0-0.8); MONO % 11.3 % (0.0-10.0); RED CELL DISTRIBUTION WIDTH 12.9 % (11.5-14.5); WHITE BLOOD COUNT 9.4 K/uL (4.8-10.8)
--- NOTE | 2017-04-01 16:08 | RAD ---
PROCEDURE: CHEST RADIOGRAPH, 1 VIEW HISTORY: Shortness of breath COMPARISON: 01/09/2017 FINDINGS: LUNGS: The lungs are clear. PLEURA: No pneumothorax or pleural fluid seen. CARDIOVASCULAR: The heart is normal in size. Atherosclerotic aortic arch calcifications are present. OSSEOUS STRUCTURES: No significant abnormalities. VISUALIZED UPPER ABDOMEN: Normal. OTHER FINDINGS: None. IMPRESSION: No active pulmonary disease.
[2017-04-01 16:13] VITALS: RESP 22
[2017-04-01 16:17] LABS: ALKALINE PHOSPHATASE 87 U/L (38-126); ALT/SGPT 34 U/L (9-52); AST/SGOT 25 U/L (14-36); BILIRUBIN,TOTAL 0.5 mg/dL (0.2-1.3); BLOOD UREA NITROGEN 68 mg/dL (7-17); CALCIUM 8.3 mg/dl (8.6-10.4); CARBON DIOXIDE 25 mmol/L (22-30); CHLORIDE 99 mmol/L (98-107); GFR AFRICAN-AMERICAN 27; GLUCOSE,RANDOM 234 mg/dL (65-105); POTASSIUM 5.2 mmol/L (3.6-5.2); SODIUM 136 mmol/L (132-148); TOTAL PROTEIN 8.4 g/dL (6.3-8.3)
[2017-04-01] MEDS ORDERED: Magnesium Sulfate 1 gm in D5W 1 GM/100 ML BAG IVPB ONE ×2 (16:19→16:54)
[2017-04-01] MEDS: Magnesium Sulfate 1 gm in D5W 1 GM/100 ML BAG IVPB SCH ×2 (16:30→16:55)
[2017-04-01 18:03] VITALS: BP 146/62; PULSE 86
== END 2017-04-01 18:16 | disposition home or self-care (01) ==
LOC: C.ER 14:42
DX: J45.901 Unspecified asthma with (acute) exacerbation (principal)
CPT/HCPCS: 71010; 80053; 83880; 84484; 85025; 85378; 87040; 87804; 94640; 96365; 96366; 96375; 99284; J2405; J2930; J3475

== ENCOUNTER 2017-11-07 04:16 | Inpatient (IN) | payer MEDICARE ==
[2017-11-07 04:16] VITALS: BMI 35.5
[2017-11-07] MEDS ORDERED: Sodium Chloride 0.9% 1,000 ML IV ONE (04:39)
--- NOTE | 2017-11-07 04:40 | C.PDOC ---
History Of Present Illness <Thomas Cardoza R - Last Filed: 11/07/17 06:35> <Gilson Oden E - Last Filed: 11/07/17 08:14> 81 year old female presents to the ED presents to the ED c/o abdominal pain that started tonight. Patient reports her abdominal pain is mostly located in her RUQ and epigastric area associated with nausea and vomiting. Patient denies fever, chills, diarrhea, back pain, dysuria, hematuria. (Thomas Cardoza) History Per: Patient History/Exam Limitations: no limitations Onset/Duration Of Symptoms: Hrs Current Symptoms Are (Timing): Still Present Location Of Pain/Discomfort: RUQ, Epigastric Radiation Of Pain To:: None Quality Of Discomfort: "Pain" Associated Symptoms: Nausea, Vomiting. denies: Diarrhea Exacerbating Factors: None Alleviating Factors: None Recent travel outside of the [place]: No Additional History Per: Patient Abnormal Vaginal Bleeding: No <Thomas Cardoza - Last Filed: 11/07/17 06:35> <Gilson Oden E - Last Filed: 11/07/17 08:14> Chief Complaint (Nursing): Abdominal Pain Past Medical History Reviewed: Historical Data, Nursing Documentation, Vital Signs - Medical History PMH: Arthritis, Asthma, Diabetes, Fractures (left wrist), HTN, Parkinson's Disease, Pneumonia Surgical History: No Surg Hx Family History: States: Unknown Family Hx - Social History Hx Tobacco Use: No Hx Alcohol Use: No Hx Substance Use: No - Immunization History Hx Tetanus Toxoid Vaccination: No Hx Influenza Vaccination: Yes Hx Pneumococcal Vaccination: Yes <Thomas Cardoza - Last Filed: 11/07/17 06:35> Vital Signs: Last Vital Signs Temp 97.8 F 11/07/17 04:24 Pulse 77 11/07/17 04:24 Resp 20 11/07/17 04:24 BP 167/88 H 11/07/17 07:15 Pulse Ox 98 11/07/17 06:36 - [facility] Procedures ESOPHAGOGASTRODUODENOSCOPY [EGD] W/CLOSED BIOPSY (05/29/01) Review Of Systems Constitutional: Negative for: Fever, Chills Cardiovascular: Negative for: Chest Pain, Palpitations Respiratory: Negative for: Cough, Shortness of Breath Gastrointestinal: Positive for: Nausea, Vomiting, Abdominal Pain. Negative for : Diarrhea Genitourinary: Negative for: Dysuria, Hematuria Neurological: Negative for: Weakness, Numbness <Cardoza,Thomas R - Last Filed: 11/07/17 06:35> Physical Exam - Physical Exam Appears: Non-toxic, In Acute Distress (due to pain) Skin: Normal Color, Warm, Dry Head: Atraumatic, Normacephalic Eye(s): bilateral: Normal Inspection Oral Mucosa: Moist Neck: Normal ROM, Supple Chest: Symmetrical Cardiovascular: Rhythm Regular Respiratory: Normal Breath Sounds, No Rales, No Rhonchi, No Wheezing Gastrointestinal/Abdominal: Soft, Tenderness (RUQ, epigastric), Distention, No Guarding, No Rebound Extremity: Normal ROM, No Tenderness, No Swelling Neurological/Psych: Oriented x3, Normal Speech Gait: Steady <Cardoza,Thomas R - Last Filed: 11/07/17 06:35> ED Course And Treatment - Laboratory Results Result Diagrams: 11/07/17 05:32 O2 Sat by Pulse Oximetry: 98 (ON RA) Pulse Ox Interpretation: Normal - CT Scan/US CT abd/pelvis Other Rad Studies (CT/US): Read By Radiologist, Radiology Report Reviewed CT/US Interpretation: EXAM: CT Abdomen and Pelvis Without Intravenous Contrast. CLINICAL HISTORY: 81 years old, female; Pain; Abdominal pain and other: Vomiting; Additional info: Upper abd pain. TECHNIQUE: Axial computed tomography images of the abdomen and pelvis without intravenous contrast. All CT. scans at this facility use at least one of these dose optimization techniques: automated exposure. control; mA and/or kV adjustment per patient size (includes targeted exams where dose is matched to. clinical indication); or iterative reconstruction. 738 images are submitted. Axial reformatted images. are submitted in lung and soft tissue windows. Coronal and sagittal reformatted images were created and reviewed. COMPARISON: No relevant prior studies available. FINDINGS: Artifacts: Limited due to motion and misregistration artifacts. Lung bases: There is bibasilar atelectasis. Mediastinum: Small hiatal hernia. ABDOMEN: Liver: Enlarged nodular cirrhotic liver. Gallbladder and bile ducts: Gallbladder distention. Pancreas: Unremarkable. No ductal dilation. Spleen: Unremarkable. No splenomegaly. Adrenals: Nodular thickening of left adrenal gland. No mass. Kidneys and ureters: Right renal vascular calcification Bilateral perinephric scarring may be a. sequela of infection, inflammation or aging. No hydronephrosis. Stomach and bowel: Diverticulosis. There is stool like appearance to the distal small bowel. This. may represent slow transit. No diverticulum. Nonspecific colonic thickening most likely due to under. distention. ROMAIN AGUILAR | Preliminary Radiology Report. CONFIDENTIALITY STATEMENT. This report is intended only for the use of the referring physician , and only in accordance with law, If you received this in error, call . Page 2 of 2. PELVIS: Appendix: The appendix is not seen. Bladder: Partially decompressed bladder with bladder wall thickening. Correlation with urinalysis is. recommended only if clinical cystitis is suspected. Reproductive: Hysterectomy. ABDOMEN and PELVIS: Intraperitoneal space: Unremarkable. No free air. No significant fluid collection. Bones/joints: No acute fracture. No dislocation. Soft tissues: There is a fat-containing umbilical hernia. Vasculature: The aorta demonstrates calcified plaque and is mildly ectatic but normal in caliber. Pelvic phleboliths. Lymph nodes: Unremarkable. No enlarged lymph nodes. IMPRESSION: No acute abnormality on this noncontrast CT examination of the abdomen and pelvis . Thank you for allowing us to participate in the care of your patient. Dictated and Authenticated by: Deacon Polanco MD. 11/07/2017 6:29 AM Eastern Time ([place] & [place]) <Thomas Cardoza R - Last Filed: 11/07/17 06:35> - Laboratory Results Result Diagrams: 11/07/17 05:32 11/07/17 06:00 Lab Interpretation: Abnormal (urine WBC 13) ECG: Interpreted By Fl ECG Rhythm: Sinus Rhythm, R BBB ECG Interpretation: Normal Rate From EC - Radiology CXR: Interpreted by Fl CXR Interpretation: Yes: No Acute Disease - Physician Consult Information Outcome Of Conversation: 0700: d/w Dr. [place] to admit, pending US,. agrees with K+ repleation and abx <Gilson Oden E - Last Filed: 11/07/17 08:14> Medical Decision Making <Thomas Cardoza R - Last Filed: 11/07/17 06:35> <Gilson Oden E - Last Filed: 11/07/17 08:14> Medical Decision Making: Plan: * CT abd/pelvis * Labs * IV fluids * Toradol 30 mg IVP * Zofran 4 mg IVP * UA 06:35- reevaluation persistent RUQ tenderness with no rebound (Thomas Cardoza) signed over @ 0700, epigastric pain pending admission and GB US labs sig for leukocytosis 13.5K, 13 WBC's in urine, HYPokalemia 2.4 CT ABd/Pelvis distended GB no abn LFT's KCL repleation started pt seen and examined by this MD, obese globous abd, NAD, +Roach's EKG NSR RBBB, no flat T^'s, nor bradycardia suspicious of clinical hypokalemia ABG prior ordered, wnl, no sepsis/acidosis Ancef empirically for cholecystitis, CXR neg d/w Dr. Flores, ok to admit d/w Surgical consult, ok to consult. (Gilson Oden) Disposition <Thomas Cardoza - Last Filed: 11/07/17 06:35> Doctor Will See Patient In The: Hospital Counseled Patient/Family Regarding: Studies Performed, Diagnosis - Disposition Disposition Time: 08:14 <Gilson Oden - Last Filed: 11/07/17 08:14> - Disposition Disposition: HOSPITALIZED Condition: GOOD - Clinical Impression Clinical Impression: Cholecystitis - Scribe Statement The provider has reviewed the documentation as recorded by the Scribe <Thomas Cardoza - Last Filed: 11/07/17 06:35> <Gilson Oden - Last Filed: 11/07/17 08:14> - Scribe Statement Billy Dorman All medical record entries made by the Scribe were at my direction and personally dictated by me. I have reviewed the chart and agree that the record accurately reflects my personal performance of the history, physical exam, medical decision making, and the department course for this patient. I have also personally directed, reviewed, and agree with the discharge instructions and disposition. (Thomas Cardoza)
[2017-11-07 05:08] LABS: SQUAMOUS EPITHIAL 7 /hpf (0-5); URINE BACTERIA RARE (<OCC); URINE BILIRUBIN NEGATIVE (NEGATIVE); URINE BLOOD NEGATIVE (NEGATIVE); URINE CLARITY Hazy (Clear); URINE COLOR Yellow (YELLOW); URINE GLUCOSE (UA) 1+ mg/dL (Normal); URINE HYALINE CAST 0-2 /lpf (0-2); URINE LEUKOCYTE ESTERASE 1+ Leu/uL (Negative); URINE PROTEIN 2+ mg/dL (NEGATIVE); URINE UROBILINOGEN NORMAL mg/dL (0.2-1.0)
[2017-11-07] MEDS ORDERED: Sodium Chloride 0.9% 1,000 ML ONE (05:29)
[2017-11-07 05:35] LABS: EOS % 0.3 % (0.0-4.0); HEMOGLOBIN 10.6 g/dL (11.0-16.0); MEAN CORPUSCULAR HEMOGLOBIN 27.3 pg (27.0-31.0); MONO # 0.4 K/uL (0.0-0.8); RED CELL DISTRIBUTION WIDTH 12.5 % (11.5-14.5)
[2017-11-07 05:39] LABS: BASO % 0.3 % (0.0-2.0); LYMPH # 1.4 K/uL (1.0-4.3); LYMPH % 10.3 % (20.0-40.0); MEAN CELL VOLUME 82.7 fL (81.0-99.0); MEAN PLATELET VOLUME 7.3 fL (7.2-11.7); MONO % 3.1 % (0.0-10.0); NEUT # 11.6 K/uL (1.8-7.0); RBC 3.89 Mil/uL (3.80-5.20); WHITE BLOOD COUNT 13.5 K/uL (4.8-10.8)
[2017-11-07 06:48] LABS: ALB/GLOB RATIO 0.9 (1.0-2.1); ALBUMIN 1.6 g/dL (3.5-5.0); ALT/SGPT 20 U/L (9-52); AST/SGOT 6 U/L (14-36); BLOOD UREA NITROGEN 28 mg/dL (7-17); CALCIUM 4.1 mg/dl (8.6-10.4); GFR AFRICAN-AMERICAN > 60; GFR NON-AFRICAN AMERICAN > 60; LIPASE 201 U/L (23-300)
[2017-11-07] MEDS ORDERED: ceFAZolin IV 1 gm in Dextrose 1 GM/50 ML BAG IVPB ONE (07:02)
[2017-11-07] MEDS ORDERED: Potassium Chloride 20 mEq 100 ML ONE (07:02)
[2017-11-07 08:02] LABS: ABG ALLEN TEST POS; ARTERIAL BLOOD GAS HCO3 21.1 mmol/L (21-28); ARTERIAL BLOOD GAS HEMOGLOBIN 10.4 g/dL (11.7-17.4); ARTERIAL BLOOD GAS O2 SAT 99.5 % (95-98); ARTERIAL BLOOD GAS PCO2 33 mm/Hg (35-45); ARTERIAL BLOOD GAS PH 7.38 (7.35-7.45); ARTERIAL BLOOD GAS PO2 132 mm/Hg (80-100); ARTERIAL BLOOD GAS TCO2 20.5 mmol/L (22-28)
--- NOTE | 2017-11-07 08:08 | CP.PCM.CON ---
<Duc Hirsch - Last Filed: 11/07/17 16:16> History of Present Illness - History of Present Illness History of Present Illness: General Surgery Consult Note for Dr. Gandhi CC: Epigastric abdominal pain and nausea/vomiting. 81F with PMH presents to [facility] with a complaint of epigastric abdominal pain and nausea/vomiting. Patient was seen and evaluated in the ED. Patient states the symptoms started at 9pm. Patient states that she started feeling nauseous about 2 hours after dinner accompanied by pain. Patient reports sudden onset. Patient states she has not experienced this in the past. She admits to one episode non-bloody, non-bilious emesis. She rates the pain as severe. Patient describes the pain as dull and constant which on occasion becomes sharp without radiation. Patient states that pain medication alleviates that pain while nothing aggravates it. She denies recent illness and sick contacts. Patient denies diarrhea, chest pain, palpitations, fever, chills, SOB , and wheezing. PMH: arthritis, diabetes, asthma, HTN, and Parkinson's PSHx: wrist surgery for fracture (2017), x3, tubal ligation Allergies: PCN Meds: As per EMR Family History: Diabetes, HTN Social: denies smoking, alcohol, and drug use Review of Systems - Review of Systems All systems: reviewed and no additional remarkable complaints except (as per hpi ) Past Patient History - Past Medical History & Family History Past Medical History?: Yes - Past Social History Smoking Status: Never Smoked - CARDIAC Hx Hypertension: Yes - PULMONARY Hx Asthma: Yes Hx Pneumonia: Yes - NEUROLOGICAL Hx Parkinson's Disease: Yes - ENDOCRINE/METABOLIC Hx Diabetes Mellitus Type 2: Yes - MUSCULOSKELETAL/RHEUMATOLOGICAL Hx Arthritis: Yes Hx Fractures: Yes (left wrist) - PSYCHIATRIC Hx Substance Use: No - SURGICAL HISTORY Hx Surgeries: Yes Hx Section: Yes (x3) Hx Hysterectomy: Yes Hx Orthopedic Surgery: Yes (left wrist) - ANESTHESIA Hx Anesthesia: Yes Hx Anesthesia Reactions: No Hx Malignant Hyperthermia: No Meds Allergies/Adverse Reactions: Allergies Allergy/AdvReac Type Severity Reaction Status Date / Time Penicillins Allergy Verified 11/07/17 04:27 - Medications Medications: Current Medications Sodium Chloride (Sodium Chloride 0.9%) 1,000 mls @ 100 mls/hr IV .Q10H ONE Stop: 11/07/17 14:38 Last Admin: 11/07/17 05:38 Dose: 100 mls/hr Potassium Chloride (Potassium Chloride 20 Meq/100 Ml) 20 meq in 100 mls @ 50 mls/hr IVPB ONCE ONE Stop: 11/07/17 08:48 Last Admin: 11/07/17 06:56 Dose: 50 mls/hr Physical Exam - Constitutional Appears: No Acute Distress - Head Exam Head Exam: ATRAUMATIC, NORMOCEPHALIC - Eye Exam Eye Exam: EOMI, Normal appearance Pupil Exam: PERRL - ENT Exam ENT Exam: Mucous Membranes Moist - Respiratory Exam Respiratory Exam: NORMAL BREATHING PATTERN - Cardiovascular Exam Cardiovascular Exam: REGULAR RHYTHM - GI/Abdominal Exam GI & Abdominal Exam: Normal Bowel Sounds, Soft, Tenderness (epigastic ). absent : Distended, Firm, Guarding, Rebound - Extremities Exam Extremities exam: Positive for: normal capillary refill, pedal edema (trace), pedal pulses present. Negative for: calf tenderness - Back Exam Back exam: absent: CVA tenderness (L), CVA tenderness (R) - Neurological Exam Neurological exam: Alert, CN II-XII Intact, Oriented x3 - Psychiatric Exam Psychiatric exam: Normal Affect, Normal Mood - Skin Skin Exam: Dry, Intact, Normal Color, Warm Results - Vital Signs Recent Vital Signs: Last Vital Signs Temp 97.8 F 11/07/17 04:24 Pulse 77 11/07/17 04:24 Resp 20 11/07/17 04:24 BP 167/88 H 11/07/17 07:15 Pulse Ox 98 11/07/17 06:36 - Labs Result Diagrams: 11/07/17 12:29 11/07/17 12:29 Labs: Laboratory Results - last 24 hr 11/07/17 11/07/17 11/07/17 05:01 05:32 06:00 WBC 13.5 H RBC 3.89 Hgb 10.6 L Hct 32.2 L MCV 82.7 D MCH 27.3 MCHC 33.0 RDW 12.5 Plt Count 154 MPV 7.3 Neut % (Auto) 86.0 H Lymph % (Auto) 10.3 L [place] % (Auto) 3.1 Eos % (Auto) 0.3 Baso % (Auto) 0.3 Neut # (Auto) 11.6 H Lymph # (Auto) 1.4 [place] # (Auto) 0.4 Eos # (Auto) 0.0 Baso # (Auto) 0.0 Puncture Site pCO2 pO2 HCO3 ABG pH ABG Total CO2 ABG O2 Saturation ABG Base Excess ABG Hemoglobin ABG Carboxyhemoglobin POC ABG HHb (Measured) ABG Methemoglobin Alexander Test A-a O2 Difference Respiratory Index Hgb O2 Saturation FiO2 Sodium 139 Potassium 2.4 L* D Chloride 119 H D Carbon Dioxide 11 L* D Anion Gap 11 BUN 28 H Creatinine 0.6 L Est GFR ( Amer) > 60 Est GFR (Non-Af Amer) > 60 Random Glucose 126 H Calcium 4.1 L* D Total Bilirubin < 0.1 L AST 6 L D ALT 20 Alkaline Phosphatase 34 L D Total Protein 3.4 L Albumin 1.6 L D Globulin 1.9 L Albumin/Globulin Ratio 0.9 L Lipase 201 Urine Color Yellow Urine Clarity Hazy Urine pH 5.0 Ur Specific [place] 1.012 Urine Protein 2+ H Urine Glucose (UA) 1+ Urine Ketones Negative Urine Blood Negative Urine Nitrate Negative Urine Bilirubin Negative Urine Urobilinogen Normal Ur Leukocyte Esterase 1+ H Urine WBC (Auto) 12 H Urine RBC (Auto) 1 Ur Squamous Epith Cells 7 H Urine Bacteria Rare Hyaline Casts 0-2 11/07/17 07:55 WBC RBC Hgb Hct MCV MCH MCHC RDW Plt Count MPV Neut % (Auto) Lymph % (Auto) [place] % (Auto) Eos % (Auto) Baso % (Auto) Neut # (Auto) Lymph # (Auto) [place] # (Auto) Eos # (Auto) Baso # (Auto) Puncture Site Rra pCO2 33 L pO2 132 H HCO3 21.1 ABG pH 7.38 ABG Total CO2 20.5 L ABG O2 Saturation 99.5 H ABG Base Excess -4.9 L ABG Hemoglobin 10.4 L ABG Carboxyhemoglobin 1.9 H POC ABG HHb (Measured) 0.5 ABG Methemoglobin 2.0 Alexander Test Pos A-a O2 Difference -24.0 Respiratory Index -0.2 Hgb O2 Saturation 95.6 FiO2 21.0 Sodium Potassium Chloride Carbon Dioxide Anion Gap BUN Creatinine Est GFR ( Amer) Est GFR (Non-Af Amer) Random Glucose Calcium Total Bilirubin AST ALT Alkaline Phosphatase Total Protein Albumin Globulin Albumin/Globulin Ratio Lipase Urine Color Urine Clarity Urine pH Ur Specific [place] Urine Protein Urine Glucose (UA) Urine Ketones Urine Blood Urine Nitrate Urine Bilirubin Urine Urobilinogen Ur Leukocyte Esterase Urine WBC (Auto) Urine RBC (Auto) Ur Squamous Epith Cells Urine Bacteria Hyaline Casts Assessment & Plan - Assessment and Plan (Free Text) Assessment: 81F with PMH presents to [facility] with a complaint of epigastric abdominal pain and nausea/vomiting. ABUS findings of fatty liver without evidence of cholecystitis. Leukocytosis with normal LFTs, UA positive for leukocyte esterase. Plan: -ADAT -Analgesics/Anti-emetics PRN -No surgical intervention planned at this time -Further recommendations as per Dr. Oksana Hirsch PGY2 <Jarvis Gandhi - Last Filed: 11/08/17 23:27> Meds - Medications Medications: Current Medications Docusate Sodium (Colace) 100 mg PO BID [facility] Last Admin: 11/08/17 19:50 Dose: 100 mg Hydromorphone HCl (Dilaudid) 0.5 mg IVP Q6H PRN PRN Reason: Pain, moderate (4-7) Last Admin: 11/08/17 18:59 Dose: 0.5 mg Ciprofloxacin (Cipro 200mg/100ml D5w) 100 mls @ 67 mls/hr IVPB Q12H [facility] PRN Reason: Protocol Last Admin: 11/08/17 20:00 Dose: 67 mls/hr Metronidazole 250 mg/ (Miscellaneous) 50 mls @ 100 mls/hr IVPB Q8H [facility] PRN Reason: Protocol Last Admin: 11/08/17 20:54 Dose: 100 mls/hr Sodium Chloride (Sodium Chloride 0.45%) 1,000 mls @ 100 mls/hr IV .Q10H [facility] Last Admin: 11/08/17 17:25 Dose: Not Given Morphine Sulfate (Morphine) 2 mg IVP Q4 PRN PRN Reason: Pain, moderate (4-7) Last Admin: 11/08/17 09:40 Dose: 2 mg Ondansetron HCl (Zofran Inj) 4 mg IVP Q8 PRN PRN Reason: vomi Last Admin: 11/07/17 20:49 Dose: 4 mg Sennosides (Senokot Tab) 8.6 mg PO DAILY [facility] Last Admin: 11/08/17 09:36 Dose: Not Given Results - Vital Signs Recent Vital Signs: Last Vital Signs Temp 98.1 F 11/08/17 17:00 Pulse 90 11/08/17 17:40 Resp 17 11/08/17 17:00 BP 164/61 H 11/08/17 17:00 Pulse Ox 98 11/08/17 17:00 - Labs Result Diagrams: 11/07/17 23:59 11/08/17 11:31 Labs: Laboratory Results - last 24 hr 11/07/17 11/07/17 11/08/17 23:59 23:59 05:57 WBC 22.4 H RBC 3.89 Hgb 10.8 L Hct 32.3 L MCV 83.2 MCH 27.8 MCHC 33.4 RDW 12.9 Plt Count 153 MPV 7.2 Neut % (Auto) 85.5 H Lymph % (Auto) 7.6 L [place] % (Auto) 6.3 Eos % (Auto) 0.1 Baso % (Auto) 0.5 Neut # (Auto) 19.2 H Lymph # (Auto) 1.7 [place] # (Auto) 1.4 H Eos # (Auto) 0.0 Baso # (Auto) 0.1 Neutrophils % (Manual) 82 H Band Neutrophils % 3 H Lymphocytes % (Manual) 8 L Monocytes % (Manual) 7 Platelet Estimate Normal Poikilocytosis (manual Slight Anisocytosis (manual) Slight PT INR APTT Sodium 131 L Potassium 4.9 Chloride 97 L Carbon Dioxide 21 L Anion Gap 17 BUN 46 H Creatinine 1.5 H Est GFR ( Amer) 40 Est GFR (Non-Af Amer) 33 POC Glucose (mg/dL) 261 H Random Glucose 220 H Calcium 8.8 Total Bilirubin 0.9 AST 19 ALT 14 Alkaline Phosphatase 67 Total Protein 6.9 Albumin 3.9 Globulin 3.0 Albumin/Globulin Ratio 1.3 Lipase 181 11/08/17 11/08/17 11/08/17 11:31 11:31 11:47 WBC RBC Hgb Hct MCV MCH MCHC RDW Plt Count MPV Neut % (Auto) Lymph % (Auto) [place] % (Auto) Eos % (Auto) Baso % (Auto) Neut # (Auto) Lymph # (Auto) [place] # (Auto) Eos # (Auto) Baso # (Auto) Neutrophils % (Manual) Band Neutrophils % Lymphocytes % (Manual) Monocytes % (Manual) Platelet Estimate Poikilocytosis (manual Anisocytosis (manual) PT 12.2 INR 1.1 APTT 26 Sodium 132 Potassium 4.9 Chloride 97 L Carbon Dioxide 22 Anion Gap 18 BUN 44 H Creatinine 1.5 H Est GFR ( Amer) 40 Est GFR (Non-Af Amer) 33 POC Glucose (mg/dL) 293 H Random Glucose 269 H Calcium 8.8 Total Bilirubin AST ALT Alkaline Phosphatase Total Protein Albumin Globulin Albumin/Globulin Ratio Lipase 11/08/17 11/08/17 16:07 20:47 WBC RBC Hgb Hct MCV MCH MCHC RDW Plt Count MPV Neut % (Auto) Lymph % (Auto) [place] % (Auto) Eos % (Auto) Baso % (Auto) Neut # (Auto) Lymph # (Auto) [place] # (Auto) Eos # (Auto) Baso # (Auto) Neutrophils % (Manual) Band Neutrophils % Lymphocytes % (Manual) Monocytes % (Manual) Platelet Estimate Poikilocytosis (manual Anisocytosis (manual) PT INR APTT Sodium Potassium Chloride Carbon Dioxide Anion Gap BUN Creatinine Est GFR ( Amer) Est GFR (Non-Af Amer) POC Glucose (mg/dL) 295 H 274 H Random Glucose Calcium Total Bilirubin AST ALT Alkaline Phosphatase Total Protein Albumin Globulin Albumin/Globulin Ratio Lipase Attending/Attestation - Attestation I have personally seen and examined this patient.: Yes I have fully participated in the care of the patient.: Yes I have reviewed all pertinent clinical information: Yes Notes (Text): Pt was seen and examined at bedside Agree with above note and assessment Pt with RUQ pain and tenderness Labs and radiology reviewed Ass: Acute Cholecystitis with Possible Cholelithiasis Plan : Possible Lap Cholecystectomy tomorrwo if HIDA scan is positive Consent EKG, CXR NPO, IVF IV Antibiotics Plan d.w pt in detail. Risk and benefit explained in detail.
--- NOTE | 2017-11-07 08:27 | CT ---
Date of service: 11/07/2017 PROCEDURE: CT Abdomen and Pelvis without intravenous contrast HISTORY: Vomiting, upper abdominal pain. COMPARISON: None. TECHNIQUE: Unenhanced study. Neither oral nor intravenous contrast administered. Radiation dose: Total exam DLP = 795.05 mGy-cm. This CT exam was performed using one or more of the following dose reduction techniques: Automated exposure control, adjustment of the mA and/or kV according to patient size, and/or use of iterative reconstruction technique. FINDINGS: LOWER THORAX: Unremarkable. LIVER: Unremarkable. No gross lesion or ductal dilatation. GALLBLADDER AND BILE DUCTS: Dilated gallbladder without gallstones or other pathologic process. PANCREAS: Unremarkable. No gross lesion or ductal dilatation. SPLEEN: Unremarkable. ADRENALS: Unremarkable. No mass. KIDNEYS AND URETERS: Unremarkable. No hydronephrosis. No solid mass. VASCULATURE: Unremarkable. No aortic aneurysm. BOWEL: Unremarkable. No obstruction. No gross mural thickening. APPENDIX: No abnormalities to suggest acute appendicitis. No right lower quadrant inflammatory processes identified. PERITONEUM: Unremarkable. No free fluid. No free air. LYMPH NODES: Unremarkable. No enlarged lymph nodes. BLADDER: Unremarkable. REPRODUCTIVE: Unremarkable. BONES: No acute fracture. OTHER FINDINGS: None. IMPRESSION: No acute findings related to/accounting for the clinical presentation. Additional benign and/or incidental findings described above. Concordant results (preliminary interpretation) provided by [facility]. Procedure Completed: 05:09 Preliminary ([facility]) Report: Dictated and Authenticated: 06:29. Final Interpretation: 08:25.
--- NOTE | 2017-11-07 10:04 | RAD ---
Date of service: 11/07/2017 HISTORY: adm COMPARISON: 04/01/2017. FINDINGS: LUNGS: No active pulmonary disease. PLEURA: No significant pleural effusion identified, no pneumothorax apparent. CARDIOVASCULAR: Normal. OSSEOUS STRUCTURES: No significant abnormalities. VISUALIZED UPPER ABDOMEN: Normal. OTHER FINDINGS: None. IMPRESSION: No active pulmonary disease.
--- NOTE | 2017-11-07 10:10 | US ---
Date of service: 11/07/2017 HISTORY: RUQ abdominal pain, distended GB on CT. COMPARISON: CT abdomen and pelvis performed earlier the same day TECHNIQUE: Sonographic evaluation of the right upper quadrant of the abdomen. FINDINGS: LIVER: Measures 15.2 cm in length. There is diffuse increased echogenicity of the liver parenchyma. No mass. No intrahepatic bile duct dilatation. GALLBLADDER: The gallbladder is distended. There are no gallstones, wall thickening or pericholecystic fluid. The sonographic Roach's sign is negative. There are echogenic foci along the posterior wall of the gallbladder which may represent focal adenomyomatosis or sludge. COMMON BILE DUCT: Measures 8.0 mm. No stones. Mild diffuse dilatation. PANCREAS: Unremarkable as visualized. No mass. No ductal dilatation. RIGHT KIDNEY: Measures 9.6 cm in length. Normal echogenicity. No calculus, mass, or hydronephrosis. AORTA: No aneurysmal dilatation. IVC: Unremarkable. OTHER FINDINGS: None . IMPRESSION: Diffuse increased echogenicity in the liver may reflect hepatic steatosis however parenchymal infectious/ inflammatory etiologies cannot be entirely excluded. Clinical and laboratory correlation is advised. Distended gallbladder without evidence for gallstones. Mild diffuse dilatation of the common bile duct without evidence for choledocholithiasis.
[2017-11-07] MEDS ORDERED: Ciprofloxacin 200mg/100ml D5W 100 ML IVPB STA (11:25)
[2017-11-07] MEDS ORDERED: metroNIDAZOLE IV 500 mg/100 ml 250 MG in Premixed IV 1 EA IVPB STA (11:25)
[2017-11-07 12:37] LABS: HEMOGLOBIN 11.1 g/dL (11.0-16.0); MEAN CELL VOLUME 82.8 fL (81.0-99.0); MEAN CORPUSCULAR HEMOGLOBIN 27.7 pg (27.0-31.0); MEAN CORPUSCULAR HGB CONC 33.5 g/dL (33.0-37.0); MEAN PLATELET VOLUME 7.2 fL (7.2-11.7); RBC 4.01 Mil/uL (3.80-5.20); RED CELL DISTRIBUTION WIDTH 12.7 % (11.5-14.5); WHITE BLOOD COUNT 18.5 K/uL (4.8-10.8)
[2017-11-07 13:05] LABS: ALB/GLOB RATIO 1.3 (1.0-2.1); ALBUMIN 4.2 g/dL (3.5-5.0); CALCIUM 9.1 mg/dl (8.6-10.4)
[2017-11-07] MEDS: Sodium Chloride 0.45% 1,000 ML IV SCH (20:48)
[2017-11-08 00:11] LABS: BASO # 0.1 K/uL (0.0-0.2); BASO % 0.5 % (0.0-2.0); EOS % 0.1 % (0.0-4.0); HEMOGLOBIN 10.8 g/dL (11.0-16.0); LYMPH # 1.7 K/uL (1.0-4.3); LYMPH % 7.6 % (20.0-40.0); MEAN CELL VOLUME 83.2 fL (81.0-99.0); MEAN CORPUSCULAR HEMOGLOBIN 27.8 pg (27.0-31.0); MEAN CORPUSCULAR HGB CONC 33.4 g/dL (33.0-37.0); MEAN PLATELET VOLUME 7.2 fL (7.2-11.7); MONO # 1.4 K/uL (0.0-0.8); MONO % 6.3 % (0.0-10.0); NEUT # 19.2 K/uL (1.8-7.0); NEUT % 85.5 % (50.0-75.0); PLATELET COUNT 153 K/uL (130-400); RBC 3.89 Mil/uL (3.80-5.20); RED CELL DISTRIBUTION WIDTH 12.9 % (11.5-14.5); WHITE BLOOD COUNT 22.4 K/uL (4.8-10.8)
[2017-11-08] MEDS: metroNIDAZOLE IV 500 mg/100 ml 250 MG in Premixed IV 1 EA IVPB SCH ×4 (00:24→20:54)
[2017-11-08 00:27] LABS: ALB/GLOB RATIO 1.3 (1.0-2.1); ALBUMIN 3.9 g/dL (3.5-5.0); CALCIUM 8.8 mg/dl (8.6-10.4)
[2017-11-08 01:22] LABS: ANISOCYTOSIS SLIGHT; BANDS 3 % (0-2); LYMPHOCYTE 8 % (20-40); MONOCYTE 7 % (0-10); NEUTROPHIL 82 % (50-75); PLATELET ESTIMATE NORMAL (NORMAL); POIKILOCYTOSIS SLIGHT; TOTAL CELLS COUNTED 100
[2017-11-08] MEDS: Ciprofloxacin 200mg/100ml D5W 100 ML IVPB SCH ×3 (01:47→20:00)
[2017-11-08] MEDS ORDERED: HYDROmorphone 0.5 mg/0.5 ml ISec IVP STA (03:24)
--- NOTE | 2017-11-08 10:42 | NM ---
Date of service: 11/07/2017 PROCEDURE: Nuclear Medicine Hepatobiliary Scan HISTORY: cholecystitis COMPARISON: CT abdomen and pelvis dated 11/07/2017 TECHNIQUE: 6 mCi of technetium 99m Mebrofenin was administered intravenously. Planar images of the abdomen were obtained at 5 min intervals to 60 mins. Delayed images were also obtained. FINDINGS: LIVER: Timely and homogenous uptake. BILE DUCT: Intra and extrahepatic bile ducts are visualized at 10 minutes. GALLBLADDER: Not visualized at 60 minutes. SMALL BOWEL: Radiotracer activity seen in the small bowel. IMPRESSION: Gallbladder is not visualized at 60 minutes suspicious for cystic duct obstruction. Clinical correlation. These findings were preliminarily reported at 2:35 a.m. on 11/08/[address] Deacon Polanco from [facility].
[2017-11-08 11:50] LABS: CALCIUM 8.8 mg/dl (8.6-10.4)
[2017-11-08 12:03] LABS: INR 1.1; PROTHROMBIN TIME 12.2 SECONDS (9.7-12.2)
[2017-11-08] MEDS: Sodium Chloride 0.45% 1,000 ML IV SCH ×2 (12:03→17:25)
[2017-11-08] MEDS ORDERED: Propofol 10 mg/ml Inj (20 ML) ONE (14:16)
[2017-11-08] MEDS ORDERED: Bupivacaine HCl 0.5% PF (30 ml) Inj ONE (14:25)
[2017-11-08] MEDS ORDERED: Lidocaine/Epinephrine 1% 1:100000 10 ML IJ ONE (14:25)
[2017-11-08] MEDS ORDERED: Rocuronium 10 mg/ml (10 ml) ONE (14:27)
[2017-11-08] MEDS ORDERED: Neostigmine Methylsulfate 3mg/3ml Syringe IV ONE (15:23)
--- NOTE | 2017-11-08 15:48 | PCM.SURG1 ---
Surgeon's Initial Post Op Note - Surgeon's Notes Surgeon: Dr. Gandhi Continuous Improvement Coach: Binu Solis PGY1 Type of Anesthesia: General Endo, Local Pre-Operative Diagnosis: acalculous cholecystitis Operative Findings: see dictation note Post-Operative Diagnosis: acalculous cholecystitis Operation Performed: laparascopic cholecystectomy. Lysis of adhesions. Aspiration of gallbladder fluid. Specimen/Specimens Removed: gallbladder Estimated Blood Loss: EBL {In ML}: 20 Blood Products Given: N/A Drains Used: Julio Post-Op Condition: Good Date of Surgery/Procedure: 11/08/17 Time of Surgery/Procedure: 15:47
[2017-11-08] MEDS ORDERED: HYDROmorphone 0.5 mg/0.5 ml ISec IVP PRN (15:59)
[2017-11-08] MEDS: HYDROmorphone 0.5 mg/0.5 ml ISec IVP PRN (18:59)
--- NOTE | 2017-11-09 02:34 | OP ---
PROCEDURE DATE: 11/08/2017 PREOPERATIVE DIAGNOSES: 1. Acute cholecystitis and possible cholelithiasis. 2. Severe leukocytosis and sepsis. 3. Morbid obesity. 4. Status post with possible postoperative adhesion. POSTOPERATIVE DIAGNOSES: 1. Acute gangrenous cholecystitis. 2. Gallbladder abscess. 3. Morbid obesity. 4. Extensive postoperative adhesion in the periumbilical as well as right upper quadrant due to previous operation. PROCEDURE DONE: 1. Laparoscopic cholecystectomy. 2. Laparoscopic drainage of gallbladder abscess. 3. Laparoscopic extensive lysis of adhesions. SURGEON: Jarvis Gandhi M.D. COLD MEAT CHEF: REED Matthews; and Nataly, PGY-1 resident. TYPE OF ANESTHESIA: General endotracheal tube anesthesia. ESTIMATED BLOOD LOSS: Around 20 mL. DRAINS: A 19-Guy[place] Julio drain was placed. COMPLICATIONS: None. INTRAOPERATIVE FINDINGS: The patient had extremely thickened edematous and gangrenous gallbladder with gallbladder abscess, and the patient also had a previous postoperative adhesion in the periumbilical area as well as right upper quadrant and extensive lysis of adhesion was done. DESCRIPTION OF PROCEDURE: On intraoperative steps, this is an 81-year-old female who was diagnosed with acute cholecystitis with possible cholelithiasis with severe sepsis and severe leukocytosis, and the patient was consented for laparoscopic cholecystectomy, possible open, brought to the OR, placed supine on the operating table. After induction of the anesthesia, the abdomen was prepped and draped in the usual sterile fashion. The supraumbilical transverse incision was made after incising the skin, subcutaneous tissue, and the fascia. The port was placed and the patient found to have extensive periumbilical adhesion as well as intestinal adhesion, and a 5 mm port was placed in the left upper quadrant and extensive lysis of adhesion was done. Now another 12 mm and two 5 mm port was placed to the gallbladder, appeared to be extremely thickened, edematous, and gangrenous; and the gallbladder was aspirated. The first clear fluid and then a pus from the gallbladder was drained, and after that, the gallbladder was retracted cranially. Calot's triangle dissection was done. Cystic duct and cystic artery were identified and clipped at 3 places and cut in between 2 clips in the gallbladder. The top-down approach was also done and critical view of the safety was identified before clipping the cystic duct and cystic artery and gallbladder was dissected free from the gallbladder fossa. The patient's gallbladder wall appeared to be extremely necrosed and gangrenous and complete removal of the posterior gallbladder wall was done and the suction irrigation of the gallbladder fossa as well as perihepatic area was done. A 19-[place] Julio drain was placed and the gallbladder was taken in an EndoCatch bag, taken out through the umbilical port site, and sent off the table for pathology. The drain was secured to the skin. All the port site was closed in 2 layers, fascia with 0 Vicryl interrupted suture, skin with a 4-0 Monocryl, and dry sterile dressing was applied. The patient tolerated the procedure well. Count of instrument and gauze was correct. There were no apparent complications. Jarvis Gandhi MD
[2017-11-09] MEDS: Sodium Chloride 0.45% 1,000 ML IV SCH ×2 (03:04→08:04)
[2017-11-09] MEDS: metroNIDAZOLE IV 500 mg/100 ml 250 MG in Premixed IV 1 EA IVPB SCH ×3 (04:35→21:12)
[2017-11-09] MEDS: HYDROmorphone 0.5 mg/0.5 ml ISec IVP PRN (04:49)
[2017-11-09] MEDS: Ciprofloxacin 200mg/100ml D5W 100 ML IVPB SCH ×2 (08:00→21:11)
--- NOTE | 2017-11-09 10:00 | CP.PCM.PN ---
<WillBinu - Last Filed: 11/09/17 09:55> Subjective - Date & Time of Evaluation Date of Evaluation: 11/09/17 Time of Evaluation: 09:55 - Subjective Subjective: General Surgery Progress Note for Dr. Gandhi 81F seen and evaluated this AM. Resting comfortably in bed. Tolerating diet. Denies BM and passing flatus. No acute events overnight. Pain is controlled. Denies f/c, n/v/d, SOB, CP, or urinary symptoms. Objective - Vital Signs/Intake and Output Vital Signs (last 24 hours): Temp Pulse Resp BP Pulse Ox 98.9 F 105 H 18 158/74 H 96 11/09/17 07:30 11/09/17 07:30 11/09/17 07:30 11/09/17 07:30 11/09/17 07:30 Intake and Output: 11/09/17 11/09/17 06:59 18:59 Intake Total 1250 Output Total 670 Balance 580 - Medications Medications: Current Medications Docusate Sodium (Colace) 100 mg PO BID [facility] Last Admin: 11/08/17 19:50 Dose: 100 mg Heparin Sodium (Porcine) (Heparin) 5,000 units SC Q8 [facility] Hydromorphone HCl (Dilaudid) 0.5 mg IVP Q6H PRN PRN Reason: Pain, moderate (4-7) Last Admin: 11/09/17 04:49 Dose: 0.5 mg Ciprofloxacin (Cipro 200mg/100ml D5w) 100 mls @ 67 mls/hr IVPB Q12H [facility] PRN Reason: Protocol Last Admin: 11/09/17 08:00 Dose: 67 mls/hr Metronidazole 250 mg/ (Miscellaneous) 50 mls @ 100 mls/hr IVPB Q8H [facility] PRN Reason: Protocol Last Admin: 11/09/17 04:35 Dose: 100 mls/hr Sodium Chloride (Sodium Chloride 0.45%) 1,000 mls @ 100 mls/hr IV .Q10H [facility] Last Admin: 11/09/17 08:04 Dose: 100 mls/hr Morphine Sulfate (Morphine) 2 mg IVP Q4 PRN PRN Reason: Pain, moderate (4-7) Last Admin: 11/09/17 00:03 Dose: 2 mg Ondansetron HCl (Zofran Inj) 4 mg IVP Q8 PRN PRN Reason: vomi Last Admin: 11/07/17 20:49 Dose: 4 mg Sennosides (Senokot Tab) 8.6 mg PO DAILY [facility] Last Admin: 11/08/17 09:36 Dose: Not Given - Labs Labs: 11/07/17 23:59 11/08/17 11:31 PT 12.2 SECONDS (9.7-12.2) 11/08/17 11:31 INR 1.1 11/08/17 11:31 APTT 26 SECONDS (21-34) 11/08/17 11:31 - Constitutional Appears: Well, Non-toxic, No Acute Distress - Head Exam Head Exam: ATRAUMATIC, NORMAL INSPECTION, NORMOCEPHALIC - Eye Exam Eye Exam: EOMI, Normal appearance - Respiratory Exam Respiratory Exam: Clear to Ausculation Bilateral, NORMAL BREATHING PATTERN - Cardiovascular Exam Cardiovascular Exam: REGULAR RHYTHM, +S1, +S2. absent: Murmur - GI/Abdominal Exam GI & Abdominal Exam: Soft, Tenderness, Normal Bowel Sounds. absent: Distended, Firm, Guarding, Rigid Additional comments: dressings c/d/i - Neurological Exam Neurological Exam: Alert, Awake, Oriented x3 - Psychiatric Exam Psychiatric exam: Normal Affect, Normal Mood - Skin Skin Exam: Dry, Intact, Normal Color, Warm Assessment and Plan - Assessment and Plan (Free Text) Assessment: 81F s/p lap milton POD1 Plan: will advance diet as tolerated c/w pain management encourage ambulation and IS use AM labs - trending white count c/w IV Abx further recs per Dr. Oksana Solis PGY1 <Jarvis Gandhi B - Last Filed: 11/16/17 18:35> Objective - Vital Signs/Intake and Output Vital Signs (last 24 hours): Temp Pulse Resp BP Pulse Ox 98.0 F 91 H 20 164/72 H 97 11/14/17 15:06 11/14/17 15:06 11/14/17 15:06 11/14/17 15:06 11/14/17 15:06 - Labs Labs: 11/14/17 06:16 11/13/17 06:20 PT 12.2 SECONDS (9.7-12.2) 11/08/17 11:31 INR 1.1 11/08/17 11:31 APTT 26 SECONDS (21-34) 11/08/17 11:31 Attending/Attestation - Attestation I have personally seen and examined this patient.: Yes I have fully participated in the care of the patient.: Yes I have reviewed all pertinent clinical information, including history, physical exam and plan: Yes Notes (Text): Pt was seen and examined at bedside Agree with above note and assessment Pt is resting comfortably Pain s well controlled IV antibiotics Liquid diet DVT prophylaxis Plan d.w pt in detail
[2017-11-09] MEDS ORDERED: Oxycodone/Acetaminophen 5/325 mg Tab PO PRN (10:22)
[2017-11-09 11:47] LABS: BASO % 0.1 % (0.0-2.0); EOS # 0.1 K/uL (0.0-0.7); EOS % 0.6 % (0.0-4.0); HEMOGLOBIN 9.1 g/dL (11.0-16.0); LYMPH # 1.4 K/uL (1.0-4.3); LYMPH % 8.5 % (20.0-40.0); MEAN CELL VOLUME 83.8 fL (81.0-99.0); MEAN CORPUSCULAR HGB CONC 33.4 g/dL (33.0-37.0); MEAN PLATELET VOLUME 7.6 fL (7.2-11.7); MONO # 1.2 K/uL (0.0-0.8); MONO % 7.6 % (0.0-10.0); NEUT # 13.6 K/uL (1.8-7.0); NEUT % 83.2 % (50.0-75.0); PLATELET COUNT 137 K/uL (130-400); RBC 3.26 Mil/uL (3.80-5.20); RED CELL DISTRIBUTION WIDTH 13.4 % (11.5-14.5); WHITE BLOOD COUNT 16.3 K/uL (4.8-10.8)
[2017-11-09 11:58] LABS: CALCIUM 8.3 mg/dl (8.6-10.4)
[2017-11-09] MEDS: Oxycodone/Acetaminophen 5/325 mg Tab PO PRN ×2 (12:05→22:38)
[2017-11-09 12:29] LABS: EOSINOPHIL 1 % (0-4); LYMPHOCYTE 13 % (20-40); MONOCYTE 3 % (0-10); NEUTROPHIL 83 % (50-75); PLATELET ESTIMATE NORMAL (NORMAL); TOTAL CELLS COUNTED 100
[2017-11-09 12:30] LABS: HYPOCHROMIC SLIGHT; POLYCHROMIC SLIGHT
[2017-11-09 16:03] VITALS: RESP 20
--- NOTE | 2017-11-09 18:55 | CP.PCM.PN ---
Subjective - Date & Time of Evaluation Date of Evaluation: 11/09/17 Time of Evaluation: 20:44 - Subjective Subjective: Patient is currently doing well. Able to stand up. Still having difficulty in going to the bathroom. Tolerating the oral feeding On examination: Elevated sugar noted. Lantus ordered. Chest good air entry bilaterally. Regular heart sound. Abdomen minimal distention noted. No BM so far Labs reviewed Improving WBC noted On ciprofloxacin Assessment and recommendation: 81-year-old female with a history of hypertension diabetes hypercholesteremia venous insufficiency admitted with acute cholecystitis. Status post a cholecystectomy. Date 3. We will continue to monitor. If the patient able to tolerate the feeding, able to walk and to have by a bowel movement, patient can be discharged awaiting for surgical opinion. Objective - Vital Signs/Intake and Output Vital Signs (last 24 hours): Temp Pulse Resp BP Pulse Ox 98.2 F 91 H 20 155/61 H 96 11/09/17 15:00 11/09/17 15:00 11/09/17 15:00 11/09/17 15:00 11/09/17 15:00 Intake and Output: 11/09/17 11/09/17 06:59 18:59 Intake Total 1250 550 Output Total 670 60 Balance 580 490 - Medications Medications: Current Medications Calamine (Calamine Lotion) 5 ml TOP QSHIFT PRN PRN Reason: Allergy symptoms Docusate Sodium (Colace) 100 mg PO BID [facility] Last Admin: 11/09/17 17:45 Dose: 100 mg Heparin Sodium (Porcine) (Heparin) 5,000 units SC Q8 [facility] Last Admin: 11/09/17 13:08 Dose: 5,000 units Ciprofloxacin (Cipro 200mg/100ml D5w) 100 mls @ 67 mls/hr IVPB Q12H [facility] PRN Reason: Protocol Last Admin: 11/09/17 08:00 Dose: 67 mls/hr Metronidazole 250 mg/ (Miscellaneous) 50 mls @ 100 mls/hr IVPB Q8H [facility] PRN Reason: Protocol Last Admin: 11/09/17 12:08 Dose: 100 mls/hr Ondansetron HCl (Zofran Inj) 4 mg IVP Q8 PRN PRN Reason: vomi Last Admin: 11/07/17 20:49 Dose: 4 mg Oxycodone/Acetaminophen (Percocet 5/325 Mg Tab) 1 tab PO Q4H PRN PRN Reason: Pain, moderate (4-7) Stop: 11/12/17 10:23 Oxycodone/Acetaminophen (Percocet 5/325 Mg Tab) 2 tab PO Q4H PRN PRN Reason: Pain, severe (8-10) Stop: 11/12/17 10:24 Last Admin: 11/09/17 12:05 Dose: 2 tab Sennosides (Senokot Tab) 8.6 mg PO DAILY [facility] Last Admin: 11/09/17 10:06 Dose: 8.6 mg - Labs Labs: 11/09/17 11:36 11/09/17 11:36 PT 12.2 SECONDS (9.7-12.2) 11/08/17 11:31 INR 1.1 11/08/17 11:31 APTT 26 SECONDS (21-34) 11/08/17 11:31
[2017-11-09] MEDS: Calamine-Zinc Oxide Lotion (120 ml) TOP PRN (21:21)
[2017-11-10] MEDS: Simethicone 40 mg/0.6 ml Liquid (30 ml) PO PRN ×2 (01:04→17:12)
[2017-11-10] MEDS ORDERED: Albuterol-Ipratrop 3 mg / 0.5 (3 ml) UD INH STA (04:46)
[2017-11-10] MEDS: metroNIDAZOLE IV 500 mg/100 ml 250 MG in Premixed IV 1 EA IVPB SCH ×3 (05:23→20:59)
[2017-11-10] MEDS: Albuterol-Ipratrop 3 mg / 0.5 (3 ml) UD INH SCH ×3 (07:59→19:02)
[2017-11-10] MEDS: Ciprofloxacin 200mg/100ml D5W 100 ML IVPB SCH ×2 (08:30→19:56)
[2017-11-10] MEDS: Calamine-Zinc Oxide Lotion (120 ml) TOP PRN (10:09)
--- NOTE | 2017-11-10 10:53 | CP.PCM.PN ---
<Binu Solis - Last Filed: 11/10/17 10:50> Subjective - Date & Time of Evaluation Date of Evaluation: 11/10/17 Time of Evaluation: 10:50 - Subjective Subjective: General Surgery Progress Note for Dr. Gandhi 81F seen and evaluated this AM. Resting comfortably in bed. Tolerating diet. Now having BM and passing flatus. No acute events overnight. Pain is controlled. Denies f/c, n/v/d, SOB, CP, or urinary symptoms. Objective - Vital Signs/Intake and Output Vital Signs (last 24 hours): Temp Pulse Resp BP Pulse Ox 97.5 F L 105 H 20 149/73 99 11/10/17 07:30 11/10/17 07:30 11/10/17 07:30 11/10/17 07:30 11/10/17 07:30 Intake and Output: 11/10/17 11/10/17 06:59 18:59 Intake Total 250 Output Total 420 Balance -170 - Medications Medications: Current Medications Albuterol/Ipratropium (Duoneb 3 Mg/0.5 Mg (3 Ml) Ud) 3 ml INH RQ6 [facility] Stop: 11/11/17 02:01 Last Admin: 11/10/17 07:59 Dose: 3 ml Calamine (Calamine Lotion) 5 ml TOP QSHIFT PRN PRN Reason: Allergy symptoms Last Admin: 11/10/17 10:09 Dose: 5 ml Docusate Sodium (Colace) 100 mg PO BID [facility] Last Admin: 11/10/17 10:01 Dose: 100 mg Heparin Sodium (Porcine) (Heparin) 5,000 units SC Q8 [facility] Last Admin: 11/10/17 05:28 Dose: 5,000 units Hydralazine HCl (Apresoline) 10 mg IVP Q6H PRN PRN Reason: Systolic Blood Pressure Last Admin: 11/10/17 05:07 Dose: 10 mg Ciprofloxacin (Cipro 200mg/100ml D5w) 100 mls @ 67 mls/hr IVPB Q12H [facility] PRN Reason: Protocol Last Admin: 11/10/17 08:30 Dose: 67 mls/hr Metronidazole 250 mg/ (Miscellaneous) 50 mls @ 100 mls/hr IVPB Q8H [facility] PRN Reason: Protocol Last Admin: 11/10/17 05:23 Dose: 100 mls/hr Ondansetron HCl (Zofran Inj) 4 mg IVP Q8 PRN PRN Reason: vomi Last Admin: 11/07/17 20:49 Dose: 4 mg Oxycodone/Acetaminophen (Percocet 5/325 Mg Tab) 1 tab PO Q4H PRN PRN Reason: Pain, moderate (4-7) Stop: 11/12/17 10:23 Oxycodone/Acetaminophen (Percocet 5/325 Mg Tab) 2 tab PO Q4H PRN PRN Reason: Pain, severe (8-10) Stop: 11/12/17 10:24 Last Admin: 11/09/17 22:38 Dose: 2 tab Sennosides (Senokot Tab) 8.6 mg PO DAILY [facility] Last Admin: 11/10/17 10:01 Dose: 8.6 mg Simethicone (Mylicon Liq) 40 mg PO QID PRN PRN Reason: gas Last Admin: 11/10/17 01:04 Dose: 0.5 ml - Labs Labs: 11/09/17 11:36 11/09/17 11:36 PT 12.2 SECONDS (9.7-12.2) 11/08/17 11:31 INR 1.1 11/08/17 11:31 APTT 26 SECONDS (21-34) 11/08/17 11:31 - Constitutional Appears: Well, Non-toxic, No Acute Distress - Head Exam Head Exam: ATRAUMATIC, NORMAL INSPECTION, NORMOCEPHALIC - Eye Exam Eye Exam: EOMI, Normal appearance - Respiratory Exam Respiratory Exam: Clear to Ausculation Bilateral, NORMAL BREATHING PATTERN - Cardiovascular Exam Cardiovascular Exam: REGULAR RHYTHM, +S1, +S2. absent: Murmur - GI/Abdominal Exam GI & Abdominal Exam: Soft, Tenderness, Normal Bowel Sounds Additional comments: dressings c/d/i - Neurological Exam Neurological Exam: Alert, Awake, Oriented x3 - Psychiatric Exam Psychiatric exam: Normal Affect, Normal Mood - Skin Skin Exam: Dry, Intact, Normal Color, Warm Assessment and Plan - Assessment and Plan (Free Text) Assessment: 81F s/p laparascopic cholecystectomy POD2 Plan: c/w IV Abx c/w regular diet as tolerated c/w pain management encouraged patient OOB to chair and ambulation encouraged IS use AM labs further recs per Dr. Oksana Solis PGY1 <Jarvis Gandhi - Last Filed: 11/16/17 18:48> Objective - Vital Signs/Intake and Output Vital Signs (last 24 hours): Temp Pulse Resp BP Pulse Ox 98.0 F 91 H 20 164/72 H 97 11/14/17 15:06 11/14/17 15:06 11/14/17 15:06 11/14/17 15:06 11/14/17 15:06 - Labs Labs: 11/14/17 06:16 11/13/17 06:20 PT 12.2 SECONDS (9.7-12.2) 11/08/17 11:31 INR 1.1 11/08/17 11:31 APTT 26 SECONDS (21-34) 11/08/17 11:31 Attending/Attestation - Attestation I have personally seen and examined this patient.: Yes I have fully participated in the care of the patient.: Yes I have reviewed all pertinent clinical information, including history, physical exam and plan: Yes Notes (Text): Pt was seen and examined at bedside Agree with above note and assessment Pt is improving clinically WBC trending down IV antibiotics Reg diet OOB Plan d.w pt in detail
[2017-11-10] MEDS ORDERED: (Novolin R) Insulin Human Regular 100 units/ml vial SC ONE ×2 (12:15→16:43)
[2017-11-11] MEDS: Albuterol-Ipratrop 3 mg / 0.5 (3 ml) UD INH SCH (01:00)
[2017-11-11] MEDS: metroNIDAZOLE IV 500 mg/100 ml 250 MG in Premixed IV 1 EA IVPB SCH ×3 (04:16→21:44)
[2017-11-11] MEDS: Oxycodone/Acetaminophen 5/325 mg Tab PO PRN ×2 (04:34→17:28)
--- NOTE | 2017-11-11 06:55 | CP.PCM.PN ---
<David Romero - Last Filed: 11/11/17 21:53> Subjective - Date & Time of Evaluation Date of Evaluation: 11/11/17 Time of Evaluation: 06:00 - Subjective Subjective: Patient seen and examined. Reports feeling better. Tolerating diet. Ambulating. Passing flatus. 150cc/24hr tima drain output, serosanguinous. Objective - Vital Signs/Intake and Output Vital Signs (last 24 hours): Temp Pulse Resp BP Pulse Ox 97.4 F L 96 H 20 164/75 H 99 11/11/17 04:05 11/11/17 04:05 11/11/17 04:05 11/11/17 04:05 11/11/17 04:05 Intake and Output: 11/10/17 11/11/17 18:59 06:59 Intake Total 450 650 Output Total 70 80 Balance 380 570 - Medications Medications: Current Medications Calamine (Calamine Lotion) 5 ml TOP QSHIFT PRN PRN Reason: Allergy symptoms Last Admin: 11/10/17 10:09 Dose: 5 ml Docusate Sodium (Colace) 100 mg PO BID [facility] Last Admin: 11/10/17 17:11 Dose: 100 mg Heparin Sodium (Porcine) (Heparin) 5,000 units SC Q8 [facility] Last Admin: 11/11/17 05:20 Dose: 5,000 units Hydralazine HCl (Apresoline) 10 mg IVP Q6H PRN PRN Reason: Systolic Blood Pressure Last Admin: 11/10/17 05:07 Dose: 10 mg Ciprofloxacin (Cipro 200mg/100ml D5w) 100 mls @ 67 mls/hr IVPB Q12H [facility] PRN Reason: Protocol Last Admin: 11/10/17 19:56 Dose: 67 mls/hr Metronidazole 250 mg/ (Miscellaneous) 50 mls @ 100 mls/hr IVPB Q8H [facility] PRN Reason: Protocol Last Admin: 11/11/17 04:16 Dose: 100 mls/hr Insulin Glargine (Lantus) 15 unit SC DAILY [facility] Ondansetron HCl (Zofran Inj) 4 mg IVP Q8 PRN PRN Reason: vomi Last Admin: 11/07/17 20:49 Dose: 4 mg Oxycodone/Acetaminophen (Percocet 5/325 Mg Tab) 1 tab PO Q4H PRN PRN Reason: Pain, moderate (4-7) Stop: 11/12/17 10:23 Last Admin: 11/10/17 20:53 Dose: 1 tab Oxycodone/Acetaminophen (Percocet 5/325 Mg Tab) 2 tab PO Q4H PRN PRN Reason: Pain, severe (8-10) Stop: 11/12/17 10:24 Last Admin: 11/11/17 04:34 Dose: 2 tab Sennosides (Senokot Tab) 8.6 mg PO DAILY [facility] Last Admin: 11/10/17 10:01 Dose: 8.6 mg Simethicone (Mylicon Liq) 40 mg PO QID PRN PRN Reason: gas Last Admin: 11/10/17 17:12 Dose: 0.6 ml - Labs Labs: 11/09/17 11:36 11/09/17 11:36 PT 12.2 SECONDS (9.7-12.2) 11/08/17 11:31 INR 1.1 11/08/17 11:31 APTT 26 SECONDS (21-34) 11/08/17 11:31 - Constitutional Appears: No Acute Distress - Head Exam Head Exam: NORMOCEPHALIC - Eye Exam Eye Exam: Normal appearance - ENT Exam ENT Exam: Mucous Membranes Moist - Respiratory Exam Respiratory Exam: NORMAL BREATHING PATTERN - Cardiovascular Exam Cardiovascular Exam: +S1, +S2 - GI/Abdominal Exam GI & Abdominal Exam: Soft - Neurological Exam Neurological Exam: Alert, Awake, Oriented x3 - Psychiatric Exam Psychiatric exam: Normal Mood - Skin Skin Exam: Dry, Intact, Warm Assessment and Plan - Assessment and Plan (Free Text) Assessment: 81F s/p laparoscopic cholecystectomy POD 3 Plan: -Regular Diet -Encourage IS and ambulation -C/w ABx -F/u AM labs -Replete electrolytes prn -Tight blood glucose control -Further recs per Dr. Oksana Palumbo PGY3 <Jarvis Gandhi - Last Filed: 11/16/17 19:12> Objective - Vital Signs/Intake and Output Vital Signs (last 24 hours): Temp Pulse Resp BP Pulse Ox 98.0 F 91 H 20 164/72 H 97 11/14/17 15:06 11/14/17 15:06 11/14/17 15:06 11/14/17 15:06 11/14/17 15:06 - Labs Labs: 11/14/17 06:16 11/13/17 06:20 PT 12.2 SECONDS (9.7-12.2) 11/08/17 11:31 INR 1.1 11/08/17 11:31 APTT 26 SECONDS (21-34) 11/08/17 11:31 Attending/Attestation - Attestation I have personally seen and examined this patient.: Yes I have fully participated in the care of the patient.: Yes I have reviewed all pertinent clinical information, including history, physical exam and plan: Yes Notes (Text): Pt was seen and examined at bedside Agree with above note and assessment WBC is trending up ID consult IV antibiotics Local wound care Plan d.w pt in detail
--- NOTE | 2017-11-11 07:09 | CARD ---
APPROVED REPORT Date of service: 11/07/2017 EKG Measurement Heart [id number] <Conclusion> Normal sinus rhythm Indeterminate axis Right bundle branch block Abnormal ECG
[2017-11-11 07:47] LABS: HEMOGLOBIN 8.6 g/dL (11.0-16.0); MEAN CELL VOLUME 83.6 fL (81.0-99.0); MEAN CORPUSCULAR HEMOGLOBIN 28.1 pg (27.0-31.0); MEAN CORPUSCULAR HGB CONC 33.6 g/dL (33.0-37.0); MEAN PLATELET VOLUME 6.8 fL (7.2-11.7); RBC 3.06 Mil/uL (3.80-5.20); RED CELL DISTRIBUTION WIDTH 13.1 % (11.5-14.5); WHITE BLOOD COUNT 13.5 K/uL (4.8-10.8)
[2017-11-11] MEDS: Ciprofloxacin 200mg/100ml D5W 100 ML IVPB SCH ×2 (08:13→19:43)
[2017-11-11 09:01] LABS: ALB/GLOB RATIO 1.2 (1.0-2.1); ALBUMIN 3.1 g/dL (3.5-5.0)
[2017-11-11] MEDS ORDERED: (Lantus) Insulin Glargine, Recombinant SC SCH (10:00)
[2017-11-11] MEDS: Simethicone 40 mg/0.6 ml Liquid (30 ml) PO PRN (16:54)
[2017-11-11] MEDS: (Novolog) Insulin Aspart, Recombinant 100 u/ml 10 ml vial SC SCH ×2 (17:54→22:30)
--- NOTE | 2017-11-11 20:38 | CP.PCM.HP ---
History of Present Illness - History of Present Illness History of Present Illness: Chief complaint: Abdominal pain of sudden onset. History present illness: 81-year-old female with a history of bronchial asthma, hypertension, diabetes, hypercholesteremia, allergic rhinitis, osteoporosis, diabetic neuropathy, bronchial asthma and bronchitis. Patient also has a chronic renal insufficiency. Chronic pedal edema. Patient came to the emergency room with a sudden onset of right upper quadrant abdominal pain, associate with the nausea, and also reaching and vomiting noted. Patient in the emergency room was evaluated. She was having the symptoms starting the night before the admission. She was also having some chills, but no fever noted. Vomiting mostly very scanty, and also associated with epigastric discomfort and pain. No blood noted. Patient did not have any BM. Patient was taking her regular medications. No chest pain noted, no shortness of breath. But she was feeling extremely sick Past medical history: Diabetes hypertension and hypercholesteremia bronchial asthma renal insufficiency chronic pedal edema Allergy and patient is allergic to penicillin. Surgical history: Personal history nonsmoker nonalcoholic, lives with the family review of system: Patient now having increasing abdominal discomfort, abdominal pain, nausea, vomiting. Does not have any bowel movements properly, diarrhea negative. Medications: Patient currently taking omeprazole, zolpidem, gabapentin, losartan, glimepride Levemir, Lasix Vital signs reviewed No neck vein distention noted Chest good air entry bilaterally, no wheezing or rales noted CVS regular heart sound, no murmur noted Significant abdominal diffuse tenderness noted, mostly in the right upper quadrant region. Patient has a edema bilaterally. Patient has a significant deformity in the left wrist, and associated swelling. 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 Repeat WBC also noted to be elevated. Patient was allergic to penicillin, ciprofloxacin, Flagyl ordered. Later HIDA scan was attempted. Patient will be going for HIDA scan. If HIDA scan is positive patient will get possible surgical intervention. Sonogram of the abdomen showing evidence of distended gallbladder. No stones noted. Assessment and recommendation: 81-year-old female with history of diabetes hypertension and hypercholesteremia , bronchial asthma , pedal edema admitted now Possible acute cholecystitis. Most likely an acalculous cholecystitis. We will get a HIDA scan. Surgical evaluation. Glucose monitoring. Antibiotic. DVT and GI prophylaxis. Present on Admission - Present on Admission Any Indicators Present on Admission: No History of DVT/PE: No History of Uncontrolled Diabetes: No Urinary Catheter: No Decubitus Ulcer Present: No Past Patient History - Past Medical History & Family History Past Medical History?: Yes - Past Social History Smoking Status: Never Smoked - CARDIAC Hx Hypertension: Yes - PULMONARY Hx Asthma: Yes Hx Pneumonia: Yes - NEUROLOGICAL Hx Parkinson's Disease: Yes - ENDOCRINE/METABOLIC Hx Diabetes Mellitus Type 2: Yes - MUSCULOSKELETAL/RHEUMATOLOGICAL Hx Arthritis: Yes - PSYCHIATRIC Hx Substance Use: No - SURGICAL HISTORY Hx Surgeries: Yes Hx Section: Yes (x3) Hx Hysterectomy: Yes Hx Orthopedic Surgery: Yes (left wrist) - ANESTHESIA Hx Anesthesia: Yes Hx Anesthesia Reactions: No Hx Malignant Hyperthermia: No Meds Home Medications: Home Medication List Medication Instructions Recorded Confirmed Type Meclizine HCl [Travel-Ease] 25 mg PO Q8H PRN #20 tablet 11/07/17 Rx Meclizine [Meclizine*] 25 mg PO Q6 PRN #30 tab 11/07/17 Rx Allergies/Adverse Reactions: Allergies Allergy/AdvReac Type Severity Reaction Status Date / Time Penicillins Allergy Verified 11/07/17 04:27 Results - Vital Signs Recent Vital Signs: Last Vital Signs Temp 97.7 F 11/11/17 15:00 Pulse 101 H 11/11/17 15:00 Resp 20 11/11/17 15:00 BP 188/77 H 11/11/17 15:00 Pulse Ox 98 11/11/17 15:00 - Labs Result Diagrams: 11/11/17 07:33 11/11/17 06:54 Labs: Laboratory Results - last 24 hr 11/10/17 11/11/17 11/11/17 21:21 06:11 06:54 WBC RBC Hgb Hct MCV MCH MCHC RDW Plt Count MPV Sodium 131 L Potassium 4.6 Chloride 98 Carbon Dioxide 21 L Anion Gap 16 BUN 33 H Creatinine 1.5 H Est GFR ( Amer) 40 Est GFR (Non-Af Amer) 33 POC Glucose (mg/dL) 321 H 301 H Random Glucose 289 H Calcium 8.0 L Total Bilirubin 0.3 AST 20 ALT 29 Alkaline Phosphatase 82 Total Protein 5.8 L Albumin 3.1 L D Globulin 2.7 Albumin/Globulin Ratio 1.2 11/11/17 11/11/17 11/11/17 07:33 12:30 16:55 WBC 13.5 H RBC 3.06 L Hgb 8.6 L Hct 25.6 L MCV 83.6 MCH 28.1 MCHC 33.6 RDW 13.1 Plt Count 170 MPV 6.8 L Sodium Potassium Chloride Carbon Dioxide Anion Gap BUN Creatinine Est GFR ( Amer) Est GFR (Non-Af Amer) POC Glucose (mg/dL) 350 H 443 H* Random Glucose Calcium Total Bilirubin AST ALT Alkaline Phosphatase Total Protein Albumin Globulin Albumin/Globulin Ratio
--- NOTE | 2017-11-11 20:38 | CP.PCM.PN ---
Subjective - Date & Time of Evaluation Date of Evaluation: 11/08/17 Time of Evaluation: 20:38 - Subjective Subjective: Patient today underwent emergency cholecystectomy. Patient had a positive HIDA scan last night. She was kept n.p.o. this morning. As per the surgery intraoperatively patient did well. Patient got extubated. Currently in the PACU Vital signs stable. Pain noted. Not in any distress otherwise Assessment and recommendation: 81-year-old female with a history of diabetes, hypertension, hypercholesterolemia, chronic venous insufficiency, renal failure. Admitted with acute cholecystitis, now status post a cholecystitis laparoscopic cholecystectomy. DVT GI prophylaxis antibiotic. We will closely monitor. We will follow the patient. DVT GI prophylaxis Objective - Vital Signs/Intake and Output Vital Signs (last 24 hours): Temp Pulse Resp BP Pulse Ox 97.7 F 101 H 20 188/77 H 98 11/11/17 15:00 11/11/17 15:00 11/11/17 15:00 11/11/17 15:00 11/11/17 15:00 Intake and Output: 11/11/17 11/12/17 18:59 06:59 Intake Total 780 Output Total 60 Balance 720 - Medications Medications: Current Medications Calamine (Calamine Lotion) 5 ml TOP QSHIFT PRN PRN Reason: Allergy symptoms Last Admin: 11/10/17 10:09 Dose: 5 ml Docusate Sodium (Colace) 100 mg PO BID [facility] Last Admin: 11/11/17 19:00 Dose: 100 mg Furosemide (Lasix) 40 mg PO BID [facility] Gabapentin (Neurontin) 100 mg PO Q8 [facility] Heparin Sodium (Porcine) (Heparin) 5,000 units SC Q8 [facility] Last Admin: 11/11/17 14:02 Dose: 5,000 units Ciprofloxacin (Cipro 200mg/100ml D5w) 100 mls @ 67 mls/hr IVPB Q12H [facility] PRN Reason: Protocol Last Admin: 11/11/17 19:43 Dose: 67 mls/hr Metronidazole 250 mg/ (Miscellaneous) 50 mls @ 100 mls/hr IVPB Q8H [facility] PRN Reason: Protocol Last Admin: 11/11/17 14:00 Dose: 100 mls/hr Insulin Aspart (Novolog) 0 unit SC ACHS [facility] PRN Reason: Protocol Last Admin: 11/11/17 17:54 Dose: 12 units Insulin Human Isoph/Insulin Regular (Novolin 70/30 (70/30 Units/Ml) 10 Ml) 20 units SC Q12 [facility] Losartan Potassium (Cozaar) 50 mg PO Q12 [facility] Montelukast Sodium (Singulair) 10 mg PO HS [facility] Ondansetron HCl (Zofran Inj) 4 mg IVP Q8 PRN PRN Reason: vomi Last Admin: 11/07/17 20:49 Dose: 4 mg Oxycodone/Acetaminophen (Percocet 5/325 Mg Tab) 1 tab PO Q4H PRN PRN Reason: Pain, moderate (4-7) Stop: 11/12/17 10:23 Last Admin: 11/10/17 20:53 Dose: 1 tab Rosuvastatin Calcium (Crestor) 5 mg PO HS [facility] Sennosides (Senokot Tab) 8.6 mg PO DAILY [facility] Last Admin: 11/11/17 10:51 Dose: 8.6 mg Simethicone (Mylicon Liq) 40 mg PO QID PRN PRN Reason: gas Last Admin: 11/11/17 16:54 Dose: 0.6 ml - Labs Labs: 11/11/17 07:33 11/11/17 06:54 PT 12.2 SECONDS (9.7-12.2) 11/08/17 11:31 INR 1.1 11/08/17 11:31 APTT 26 SECONDS (21-34) 11/08/17 11:31
--- NOTE | 2017-11-11 20:39 | CP.PCM.PN ---
Subjective - Date & Time of Evaluation Date of Evaluation: 11/11/17 Time of Evaluation: 20:39 - Subjective Subjective: Patient is having abdominal distention. Bloated sensation noted. But otherwise he is comfortable. She was able to tolerate the oral feeding On examination: Blood pressures on the elevated side. Blood sugar is also elevated. Chest bilateral good air entry. Regular heart sound. Abdominal distention, tympanic noted. Patient is able to pass gas. But no BM Labs reviewed WBC is 13. Culture of the gallbladder specimen showing Streptococcus. As the patient is sensitive you and improving with the Cipro will continue. Will add 1 dose of vancomycin. Clinically stable. WBC to be monitored tomorrow and labs to be monitored. Dulcolax suppository. Will follow the patient Objective - Vital Signs/Intake and Output Vital Signs (last 24 hours): Temp Pulse Resp BP Pulse Ox 97.7 F 101 H 20 188/77 H 98 11/11/17 15:00 11/11/17 15:00 11/11/17 15:00 11/11/17 15:00 11/11/17 15:00 Intake and Output: 11/11/17 11/12/17 18:59 06:59 Intake Total 780 Output Total 60 Balance 720 - Medications Medications: Current Medications Calamine (Calamine Lotion) 5 ml TOP QSHIFT PRN PRN Reason: Allergy symptoms Last Admin: 11/10/17 10:09 Dose: 5 ml Docusate Sodium (Colace) 100 mg PO BID [facility] Last Admin: 11/11/17 19:00 Dose: 100 mg Furosemide (Lasix) 40 mg PO BID [facility] Gabapentin (Neurontin) 100 mg PO Q8 [facility] Heparin Sodium (Porcine) (Heparin) 5,000 units SC Q8 [facility] Last Admin: 11/11/17 14:02 Dose: 5,000 units Ciprofloxacin (Cipro 200mg/100ml D5w) 100 mls @ 67 mls/hr IVPB Q12H [facility] PRN Reason: Protocol Last Admin: 11/11/17 19:43 Dose: 67 mls/hr Metronidazole 250 mg/ (Miscellaneous) 50 mls @ 100 mls/hr IVPB Q8H [facility] PRN Reason: Protocol Last Admin: 11/11/17 14:00 Dose: 100 mls/hr Insulin Aspart (Novolog) 0 unit SC ACHS [facility] PRN Reason: Protocol Last Admin: 11/11/17 17:54 Dose: 12 units Insulin Human Isoph/Insulin Regular (Novolin 70/30 (70/30 Units/Ml) 10 Ml) 20 units SC Q12 [facility] Losartan Potassium (Cozaar) 50 mg PO Q12 [facility] Montelukast Sodium (Singulair) 10 mg PO HS [facility] Ondansetron HCl (Zofran Inj) 4 mg IVP Q8 PRN PRN Reason: vomi Last Admin: 11/07/17 20:49 Dose: 4 mg Oxycodone/Acetaminophen (Percocet 5/325 Mg Tab) 1 tab PO Q4H PRN PRN Reason: Pain, moderate (4-7) Stop: 11/12/17 10:23 Last Admin: 11/10/17 20:53 Dose: 1 tab Rosuvastatin Calcium (Crestor) 5 mg PO HS [facility] Sennosides (Senokot Tab) 8.6 mg PO DAILY [facility] Last Admin: 11/11/17 10:51 Dose: 8.6 mg Simethicone (Mylicon Liq) 40 mg PO QID PRN PRN Reason: gas Last Admin: 11/11/17 16:54 Dose: 0.6 ml - Labs Labs: 11/11/17 07:33 11/11/17 06:54 PT 12.2 SECONDS (9.7-12.2) 11/08/17 11:31 INR 1.1 11/08/17 11:31 APTT 26 SECONDS (21-34) 11/08/17 11:31
--- NOTE | 2017-11-11 20:39 | CP.PCM.PN ---
Subjective - Date & Time of Evaluation Date of Evaluation: 11/10/17 Time of Evaluation: 20:38 - Subjective Subjective: Patient is still having some abdominal discomfort. Bloated sensation noted. No nausea vomiting. Improving the WBC Vital signs stable. Elevated blood pressure noted, blood sugar noted Abdomen minimal distention, bowel movements present Labs reviewed Assessment and recommendation: 81-year-old female with a history of diabetes hypertension hypercholesterolemia Status post cholecystectomy. Currently stable at this time. We will continue to monitor. We will follow-up the patient Objective - Vital Signs/Intake and Output Vital Signs (last 24 hours): Temp Pulse Resp BP Pulse Ox 97.7 F 101 H 20 188/77 H 98 11/11/17 15:00 11/11/17 15:00 11/11/17 15:00 11/11/17 15:00 11/11/17 15:00 Intake and Output: 11/11/17 11/12/17 18:59 06:59 Intake Total 780 Output Total 60 Balance 720 - Medications Medications: Current Medications Calamine (Calamine Lotion) 5 ml TOP QSHIFT PRN PRN Reason: Allergy symptoms Last Admin: 11/10/17 10:09 Dose: 5 ml Docusate Sodium (Colace) 100 mg PO BID [facility] Last Admin: 11/11/17 19:00 Dose: 100 mg Furosemide (Lasix) 40 mg PO BID [facility] Gabapentin (Neurontin) 100 mg PO Q8 [facility] Heparin Sodium (Porcine) (Heparin) 5,000 units SC Q8 [facility] Last Admin: 11/11/17 14:02 Dose: 5,000 units Ciprofloxacin (Cipro 200mg/100ml D5w) 100 mls @ 67 mls/hr IVPB Q12H [facility] PRN Reason: Protocol Last Admin: 11/11/17 19:43 Dose: 67 mls/hr Metronidazole 250 mg/ (Miscellaneous) 50 mls @ 100 mls/hr IVPB Q8H [facility] PRN Reason: Protocol Last Admin: 11/11/17 14:00 Dose: 100 mls/hr Insulin Aspart (Novolog) 0 unit SC ACHS [facility] PRN Reason: Protocol Last Admin: 11/11/17 17:54 Dose: 12 units Insulin Human Isoph/Insulin Regular (Novolin 70/30 (70/30 Units/Ml) 10 Ml) 20 units SC Q12 [facility] Losartan Potassium (Cozaar) 50 mg PO Q12 [facility] Montelukast Sodium (Singulair) 10 mg PO HS [facility] Ondansetron HCl (Zofran Inj) 4 mg IVP Q8 PRN PRN Reason: vomi Last Admin: 11/07/17 20:49 Dose: 4 mg Oxycodone/Acetaminophen (Percocet 5/325 Mg Tab) 1 tab PO Q4H PRN PRN Reason: Pain, moderate (4-7) Stop: 11/12/17 10:23 Last Admin: 11/10/17 20:53 Dose: 1 tab Rosuvastatin Calcium (Crestor) 5 mg PO HS [facility] Sennosides (Senokot Tab) 8.6 mg PO DAILY [facility] Last Admin: 11/11/17 10:51 Dose: 8.6 mg Simethicone (Mylicon Liq) 40 mg PO QID PRN PRN Reason: gas Last Admin: 11/11/17 16:54 Dose: 0.6 ml - Labs Labs: 11/11/17 07:33 11/11/17 06:54 PT 12.2 SECONDS (9.7-12.2) 11/08/17 11:31 INR 1.1 11/08/17 11:31 APTT 26 SECONDS (21-34) 11/08/17 11:31
[2017-11-11] MEDS: (Novolin 70/30) NPH/Regular 70/30 Units/ml 10 ml vial SC SCH (23:54)
[2017-11-12] MEDS: metroNIDAZOLE IV 500 mg/100 ml 250 MG in Premixed IV 1 EA IVPB SCH ×3 (06:27→22:00)
[2017-11-12 06:47] LABS: ALB/GLOB RATIO 1.3 (1.0-2.1); ALBUMIN 3.3 g/dL (3.5-5.0); CALCIUM 8.6 mg/dl (8.6-10.4)
[2017-11-12 07:23] LABS: BASO % 0.3 % (0.0-2.0); EOS # 0.4 K/uL (0.0-0.7); EOS % 2.8 % (0.0-4.0); LYMPH # 1.8 K/uL (1.0-4.3); LYMPH % 12.2 % (20.0-40.0); MEAN CELL VOLUME 83.6 fL (81.0-99.0); MEAN CORPUSCULAR HEMOGLOBIN 27.6 pg (27.0-31.0); MEAN CORPUSCULAR HGB CONC 33.1 g/dL (33.0-37.0); MEAN PLATELET VOLUME 6.7 fL (7.2-11.7); MONO # 1.5 K/uL (0.0-0.8); MONO % 10.4 % (0.0-10.0); NEUT # 10.9 K/uL (1.8-7.0); NEUT % 74.3 % (50.0-75.0); RBC 3.24 Mil/uL (3.80-5.20); RED CELL DISTRIBUTION WIDTH 13.3 % (11.5-14.5); WHITE BLOOD COUNT 14.7 K/uL (4.8-10.8)
[2017-11-12] MEDS: (Novolin 70/30) NPH/Regular 70/30 Units/ml 10 ml vial SC SCH ×2 (10:21→22:01)
[2017-11-12] MEDS: Ciprofloxacin 200mg/100ml D5W 100 ML IVPB SCH (10:21)
[2017-11-12] MEDS: (Novolog) Insulin Aspart, Recombinant 100 u/ml 10 ml vial SC SCH ×4 (12:26→22:12)
--- NOTE | 2017-11-12 13:22 | CP.PCM.PN ---
<Duc Hirsch - Last Filed: 11/12/17 13:19> Subjective - Date & Time of Evaluation Date of Evaluation: 11/12/17 Time of Evaluation: 10:00 - Subjective Subjective: General Surgery Note for Dr. Gandhi Patient seen and examined at bedside. No acute event overnight. Patient stated pain is controlled. She is tolerating diet. She admits to passing flatus. She has no complaints at this time. Objective - Vital Signs/Intake and Output Vital Signs (last 24 hours): Temp Pulse Resp BP Pulse Ox 98.7 F 87 20 148/78 100 11/12/17 08:22 11/12/17 08:22 11/12/17 08:22 11/12/17 10:22 11/12/17 08:22 Intake and Output: 11/12/17 11/12/17 06:59 18:59 Intake Total 780 Output Total 305 Balance 475 - Medications Medications: Current Medications Calamine (Calamine Lotion) 5 ml TOP QSHIFT PRN PRN Reason: Allergy symptoms Last Admin: 11/10/17 10:09 Dose: 5 ml Docusate Sodium (Colace) 100 mg PO BID [facility] Last Admin: 11/12/17 10:22 Dose: 100 mg Furosemide (Lasix) 40 mg PO BID [facility] Last Admin: 11/12/17 10:22 Dose: 40 mg Gabapentin (Neurontin) 100 mg PO Q8 [facility] Last Admin: 11/12/17 06:28 Dose: 100 mg Heparin Sodium (Porcine) (Heparin) 5,000 units SC Q8 [facility] Last Admin: 11/12/17 06:27 Dose: 5,000 units Ciprofloxacin (Cipro 200mg/100ml D5w) 100 mls @ 67 mls/hr IVPB Q12H [facility] PRN Reason: Protocol Last Admin: 11/12/17 10:21 Dose: 67 mls/hr Metronidazole 250 mg/ (Miscellaneous) 50 mls @ 100 mls/hr IVPB Q8H [facility] PRN Reason: Protocol Last Admin: 11/12/17 06:27 Dose: 100 mls/hr Insulin Aspart (Novolog) 0 unit SC ACHS [facility] PRN Reason: Protocol Last Admin: 11/12/17 12:31 Dose: 4 units Insulin Human Isoph/Insulin Regular (Novolin 70/30 (70/30 Units/Ml) 10 Ml) 20 units SC Q12 [facility] Last Admin: 11/12/17 10:21 Dose: 20 units Losartan Potassium (Cozaar) 50 mg PO Q12 [facility] Last Admin: 11/12/17 10:22 Dose: 50 mg Montelukast Sodium (Singulair) 10 mg PO HS [facility] Last Admin: 11/11/17 22:35 Dose: 10 mg Ondansetron HCl (Zofran Inj) 4 mg IVP Q8 PRN PRN Reason: vomi Last Admin: 11/07/17 20:49 Dose: 4 mg Rosuvastatin Calcium (Crestor) 5 mg PO HS [facility] Last Admin: 11/11/17 22:36 Dose: 5 mg Sennosides (Senokot Tab) 8.6 mg PO DAILY [facility] Last Admin: 11/12/17 10:22 Dose: 8.6 mg Simethicone (Mylicon Liq) 40 mg PO QID PRN PRN Reason: gas Last Admin: 11/11/17 16:54 Dose: 0.6 ml - Labs Labs: 11/12/17 06:18 11/12/17 06:18 PT 12.2 SECONDS (9.7-12.2) 11/08/17 11:31 INR 1.1 11/08/17 11:31 APTT 26 SECONDS (21-34) 11/08/17 11:31 - Additional Findings Additional findings: - Constitutional Appears: No Acute Distress - Head Exam Head Exam: NORMOCEPHALIC - Eye Exam Eye Exam: Normal appearance - ENT Exam ENT Exam: Mucous Membranes Moist - Respiratory Exam Respiratory Exam: NORMAL BREATHING PATTERN - Cardiovascular Exam Cardiovascular Exam: +S1, +S2 - GI/Abdominal Exam GI & Abdominal Exam: Soft, Nontender tima drain in place with 25 cc of serosanguinous output overnight - Neurological Exam Neurological Exam: Alert, Awake, Oriented x3 - Psychiatric Exam Psychiatric exam: Normal Mood - Skin Skin Exam: Dry, Intact, Warm Assessment and Plan - Assessment and Plan (Free Text) Assessment: 81F s/p laparoscopic cholecystectomy POD#4 Plan: -HHD CCD -OOB to chair, IS and ambulation -Continue Antibiotics -WBC 14.1, f/u AM labs -Replete electrolytes prn -Tight blood glucose control -Further recs per Dr. Oksana Hirsch PGY2 <Jarvis Gandhi B - Last Filed: 11/16/17 19:18> Objective - Vital Signs/Intake and Output Vital Signs (last 24 hours): Temp Pulse Resp BP Pulse Ox 98.0 F 91 H 20 164/72 H 97 11/14/17 15:06 11/14/17 15:06 11/14/17 15:06 11/14/17 15:06 11/14/17 15:06 - Labs Labs: 11/14/17 06:16 11/13/17 06:20 PT 12.2 SECONDS (9.7-12.2) 11/08/17 11:31 INR 1.1 11/08/17 11:31 APTT 26 SECONDS (21-34) 11/08/17 11:31 Attending/Attestation - Attestation I have personally seen and examined this patient.: Yes I have fully participated in the care of the patient.: Yes I have reviewed all pertinent clinical information, including history, physical exam and plan: Yes Notes (Text): Pt was seen and examined at bedside Agree with above note and assessment ID consult for Leucocytosis OOB to walk IV antibiotics Plan d.w pt and PMD in detail
[2017-11-12] MEDS: Simethicone 80 mg Chewtab PO PRN ×2 (14:01→22:10)
--- NOTE | 2017-11-12 17:54 | CP.PCM.CON ---
History of Present Illness - History of Present Illness History of Present Illness: 81F with PMH presented to [facility] several days back with a complaint of epigastric abdominal pain and nausea/vomiting. She underwent cholecystectomy but recently her cultures came back positive for strep species ( Viridans? ) and her WBC is rising She c/o abd pain and decreased apettite denies chest pain or SOB ID consulted for antibiotic management Hx of PCN allergy- ? rash over 50 yrs ago in the [facility] PMH: arthritis, diabetes, asthma, HTN, and Parkinson's PSHx: wrist surgery for fracture (2017), x3, tubal ligation Allergies: PCN Meds: As per EMR Family History: Diabetes, HTN Social: denies smoking, alcohol, and drug use Review of Systems - Constitutional Constitutional: As Per HPI - EENT Eyes: absent: As Per HPI, Blind Spots, Blurred Vision, Change in Vision, Decreased Night Vision, Diplopia, Discharge, Dry Eye, Exophthalmos, Floaters, Irritation, Itchy Eyes, Loss of Peripheral Vision, Pain, Photophobia, Requires Corrective Lenses, Sees Flashes, Spots in Vision, Tunnel Vision, Other Visual Disturbances, Loss of Vision, Other Ears: absent: As Per HPI, Decreased Hearing, Ear Discharge, Ear Pain, Tinnitus, Abnormal Hearing, Disequilibrium, Dizziness, Other Nose/Mouth/Throat: absent: As Per HPI, Epistaxis, Nasal Congestion, Nasal Discharge, Nasal Obstruction, Nasal Trauma, Nose Pain, Post Nasal Drip, Sinus Pain, Sinus Pressure, Bleeding Gums, Change in Voice, Dental Pain, Dry Mouth, Dysphagia, Halitosis, Hoarsness, Lip Swelling, Mouth Lesions, Mouth Pain, Odynophagia, Sore Throat, Throat Swelling, Tongue Swelling, Facial Pain, Neck Pain, Neck Mass, Other - Breasts Breasts: absent: As Per HPI, Change in Shape, Mass, Pain, Nipple Discharge, Nipple Inversion, Skin Changes, Swelling, Other - Cardiovascular Cardiovascular: absent: As Per HPI, Acrocyanosis, Chest Pain, Chest Pain at Rest , Chest Pain with Activity, Claudication, Diaphoresis, Dyspnea, Dyspnea on Exertion, Edema, Irregular Heart Rhythm, Pain Radiating to Arm/Neck/Jaw, Leg Edema, Leg Ulcers, Lightheadedness, Orthopnea, Palpitations, Paroxysmal Nocturnal Dyspnea, Pedal Edema, Radiating Pain, Rapid Heart Rate, Slow Heart Rate, Syncope, Other - Respiratory Respiratory: absent: As Per HPI, Cough, Dyspnea, Hemoptysis, Dyspnea on Exertion , Wheezing, Snoring, Stridor, Pain on Inspiration, Chest Congestion, Excessive Mucous Production, Change in Mucous Color, Pain with Coughing, Other - Gastrointestinal Gastrointestinal: As Per HPI - Genitourinary Genitourinary: absent: As Per HPI, Change in Urinary Stream, Difficulty Urinating, Dysuria, Flank Pain, Hematuria, Pyuria, Nocturia, Urinary Incontinence, Urinary Frequency, Urinary Hesitance, Urinary Urgency, Voiding Freq/Small Amts, Freq UTI, Hx Renal/Bladder Calculi, Hx /Renal Surgery, Bladder Distension, Other - Reproductive: Female Reproductive:Female: absent: As Per HPI, Amenorrhea, Amenorrhea/ Control, Currently Menstual, Cycle <21 Days, Cycle >35 Days, Cycle Variable, Menses 1-7 Days, Menses >/= 8 Days, Menses Variable, Cycle > 4 Weeks Between, No Menses for 6 Months, Heavy Menses, Light Menses, Normal Menses, Spotting Between Cycles , S/P Hysterectomy, Menopausal, Post Menopausal, Premenarche, Abnormal Vaginal Bleeding, Dysmenorrhea, Dyspareunia, Genital Lesions, Genital Pruritis, Pelvic Pain, Prolapse Symptoms, Sexual Dysfunction, Vaginal Discharge, Vaginal Dryness , Vaginal Odor, Vaginal Pruritis, Other - Menstruation Menstruation: absent: As Per HPI, Amenorrhea, Amenorrhea/ Control, Currently Menstual, Cycle <21 Days, Cycle >35 Days, Cycle Variable, Menses 1-7 Days, Menses >/= 8 Days, Menses Variable, Cycle > 4 Weeks Between, No Menses for 6 Months, Heavy Menses, Light Menses, Normal Menses, Spotting Between Cycles , S/P Hysterectomy, Menopausal, Post Menopausal, Premenarche, Abnormal Vaginal Bleeding, Dysmenorrhea, Other - Musculoskeletal Musculoskeletal: absent: As Per HPI, Abnormal Gait, Arthralgias, Atrophy, Back Pain, Deformity, Joint Swelling, Limited Range of Motion, Loss of Height, Muscle Cramps, Muscle Weakness, Myalgias, Neck Pain, Numbness, Radiating Pain into Limb, Stiffness, Tingling, Other - Integumentary Integumentary: absent: As Per HPI, Acne, Alopecia, Bleeding Lesions, Change in Hair, Change in Nails, Change in Pigmentation, Changing Lesions, Dry Skin, Erythema, Furuncle, Hirsutism, Lesions, New Lesions, Non-Healing Lesions, Photosensitivity, Pruritus, Rash, Skin Pain, Skin Ulcer, Sores, Striae, Swelling , Unusual Bruising, Wounds, Jaundice, Other - Neurological Neurological: absent: As Per HPI, Abnormal Gait, Abnormal Hearing, Abnormal Movements, Abnormal Speech, Behavioral Changes, Burning Sensations, Confusion, Convulsions, Disequilibrium, Dizziness, Numbness, Focal Weakness, Frequent Falls , Headaches, Lack of Coordination, Loss of Vision, Memory Loss, Paresthesias, Radicular Pain, Restless Legs, Sensory Deficit, Syncope, Tingling, Tremor, Vertigo, Weakness, Other Visual Disturbances, Other - Psychiatric Psychiatric: absent: As Per HPI, Abnormal Sleep Pattern, Anhedonia, Anxiety, Auditory Hallucinations, Behavioral Changes, Change in Appetite, Change in Libido, Confusion, Depression, Difficulty Concentrating, Hallucinations, Homicidal Ideation, Hopelessness, Irritability, Memory Loss, Mood Swings, Panic Attacks, Paranoia, Suicidal Ideation, Visual Hallucinations, Tactile Hallucinations, Other - Endocrine Endocrine: absent: As Per HPI, Change in Body Appearance, Change in Libido, Cold Intolorance, Deepening of Voice, Excessive Sweating, Fatigue, Flushing, Heat Intolorance, Increase in Ring/Shoe/Hat Size, Palpitations, Polydipsia, Polyphagia, Polyuria, Other - Hematologic/Lymphatic Hematologic: absent: As Per HPI, Easy Bleeding, Easy Bruising, Lymphadenopathy, Other Past Patient History - Past Medical History & Family History Past Medical History?: Yes - Past Social History Smoking Status: Never Smoked - CARDIAC Hx Hypertension: Yes - PULMONARY Hx Asthma: Yes Hx Pneumonia: Yes - NEUROLOGICAL Hx Parkinson's Disease: Yes - ENDOCRINE/METABOLIC Hx Diabetes Mellitus Type 2: Yes - MUSCULOSKELETAL/RHEUMATOLOGICAL Hx Arthritis: Yes - PSYCHIATRIC Hx Substance Use: No - SURGICAL HISTORY Hx Surgeries: Yes Hx Section: Yes (x3) Hx Hysterectomy: Yes Hx Orthopedic Surgery: Yes (left wrist) - ANESTHESIA Hx Anesthesia: Yes Hx Anesthesia Reactions: No Hx Malignant Hyperthermia: No Meds Home Medications: Home Medication List Medication Instructions Recorded Confirmed Type Meclizine HCl [Travel-Ease] 25 mg PO Q8H PRN #20 tablet 11/07/17 Rx Meclizine [Meclizine*] 25 mg PO Q6 PRN #30 tab 11/07/17 Rx Allergies/Adverse Reactions: Allergies Allergy/AdvReac Type Severity Reaction Status Date / Time Penicillins Allergy Verified 11/07/17 04:27 - Medications Medications: Current Medications Calamine (Calamine Lotion) 5 ml TOP QSHIFT PRN PRN Reason: Allergy symptoms Last Admin: 11/10/17 10:09 Dose: 5 ml Docusate Sodium (Colace) 100 mg PO BID [facility] Last Admin: 11/12/17 10:22 Dose: 100 mg Furosemide (Lasix) 40 mg PO BID [facility] Last Admin: 11/12/17 10:22 Dose: 40 mg Gabapentin (Neurontin) 100 mg PO Q8 [facility] Last Admin: 11/12/17 14:01 Dose: 100 mg Heparin Sodium (Porcine) (Heparin) 5,000 units SC Q8 [facility] Last Admin: 11/12/17 14:02 Dose: 5,000 units Ciprofloxacin (Cipro 200mg/100ml D5w) 100 mls @ 67 mls/hr IVPB Q12H [facility] PRN Reason: Protocol Last Admin: 11/12/17 10:21 Dose: 67 mls/hr Metronidazole 250 mg/ (Miscellaneous) 50 mls @ 100 mls/hr IVPB Q8H [facility] PRN Reason: Protocol Last Admin: 11/12/17 14:09 Dose: 100 mls/hr Insulin Aspart (Novolog) 0 unit SC ACHS [facility] PRN Reason: Protocol Last Admin: 11/12/17 17:21 Dose: Not Given Insulin Human Isoph/Insulin Regular (Novolin 70/30 (70/30 Units/Ml) 10 Ml) 20 units SC Q12 [facility] Last Admin: 11/12/17 10:21 Dose: 20 units Losartan Potassium (Cozaar) 50 mg PO Q12 [facility] Last Admin: 11/12/17 10:22 Dose: 50 mg Montelukast Sodium (Singulair) 10 mg PO HS [facility] Last Admin: 11/11/17 22:35 Dose: 10 mg Ondansetron HCl (Zofran Inj) 4 mg IVP Q8 PRN PRN Reason: vomi Last Admin: 11/07/17 20:49 Dose: 4 mg Rosuvastatin Calcium (Crestor) 5 mg PO HS [facility] Last Admin: 11/11/17 22:36 Dose: 5 mg Sennosides (Senokot Tab) 8.6 mg PO DAILY [facility] Last Admin: 11/12/17 10:22 Dose: 8.6 mg Simethicone (Mylicon Chew Tab) 80 mg PO QID PRN PRN Reason: gas Last Admin: 11/12/17 14:01 Dose: 80 mg Physical Exam - Constitutional Appears: Non-toxic, Chronically Ill - Head Exam Head Exam: NORMOCEPHALIC - Eye Exam Eye Exam: PERRL. absent: Scleral icterus - ENT Exam ENT Exam: Mucous Membranes Dry, Normal External Ear Exam - Neck Exam Neck exam: Negative for: Lymphadenopathy - Respiratory Exam Respiratory Exam: Decreased Breath Sounds, Rhonchi - Cardiovascular Exam Cardiovascular Exam: REGULAR RHYTHM, +S1, +S2 - GI/Abdominal Exam GI & Abdominal Exam: Diminished Bowel Sounds, Distended, Guarding, Tenderness. absent: Rigid Additional comments: drain in place - Rectal Exam Rectal Exam: Deferred - Exam Exam: NORMAL INSPECTION - Extremities Exam Extremities exam: Positive for: pedal pulses present. Negative for: calf tenderness, pedal edema - Back Exam Back exam: absent: CVA tenderness (L), CVA tenderness (R) - Neurological Exam Neurological exam: Alert, CN II-XII Intact, Oriented x3, Reflexes Normal - Psychiatric Exam Psychiatric exam: Normal Mood - Skin Skin Exam: Dry, Intact Results - Vital Signs Recent Vital Signs: Last Vital Signs Temp 97.4 F L 11/12/17 15:59 Pulse 90 11/12/17 15:59 Resp 20 11/12/17 15:59 BP 187/76 H 11/12/17 15:59 Pulse Ox 100 11/12/17 15:59 - Labs Result Diagrams: 11/12/17 06:18 11/12/17 06:18 Labs: Laboratory Results - last 24 hr 11/12/17 11/12/17 06:18 06:18 WBC 14.7 H RBC 3.24 L Hgb 9.0 L Hct 27.1 L MCV 83.6 MCH 27.6 MCHC 33.1 RDW 13.3 Plt Count 201 MPV 6.7 L Neut % (Auto) 74.3 Lymph % (Auto) 12.2 L [place] % (Auto) 10.4 H Eos % (Auto) 2.8 Baso % (Auto) 0.3 Neut # (Auto) 10.9 H Lymph # (Auto) 1.8 [place] # (Auto) 1.5 H Eos # (Auto) 0.4 Baso # (Auto) 0.0 Sodium 134 Potassium 4.6 Chloride 100 Carbon Dioxide 25 Anion Gap 13 BUN 32 H Creatinine 1.4 H Est GFR ( Amer) 43 Est GFR (Non-Af Amer) 36 Random Glucose 100 Calcium 8.6 Magnesium 2.2 Total Bilirubin 0.3 AST 16 ALT 32 Alkaline Phosphatase 78 Total Protein 6.0 L Albumin 3.3 L Globulin 2.6 Albumin/Globulin Ratio 1.3 Assessment & Plan (1) Cholecystitis Status: Acute - Assessment and Plan (Free Text) Assessment: persistent leukocytosis with strep species from cuture in OR has remote hx of ? PCN allergy deescribed as a rash no contraindication for merrem will d/c cipro add merrem
[2017-11-12] MEDS: Meropenem 500 MG in Sodium Chloride 0.9% 100 ML IVPB SCH (20:21)
[2017-11-13] MEDS ORDERED: HYDROmorphone 0.5 mg/0.5 ml ISec IVP PRN (01:57)
[2017-11-13] MEDS: Meropenem 500 MG in Sodium Chloride 0.9% 100 ML IVPB SCH ×3 (03:29→18:55)
[2017-11-13] MEDS: metroNIDAZOLE IV 500 mg/100 ml 250 MG in Premixed IV 1 EA IVPB SCH ×3 (05:16→21:01)
[2017-11-13 06:29] LABS: BASO % 0.3 % (0.0-2.0); EOS # 0.3 K/uL (0.0-0.7); EOS % 2.1 % (0.0-4.0); HEMOGLOBIN 9.2 g/dL (11.0-16.0); LYMPH # 2.1 K/uL (1.0-4.3); LYMPH % 14.8 % (20.0-40.0); MEAN CELL VOLUME 83.6 fL (81.0-99.0); MEAN CORPUSCULAR HEMOGLOBIN 27.7 pg (27.0-31.0); MEAN CORPUSCULAR HGB CONC 33.1 g/dL (33.0-37.0); MEAN PLATELET VOLUME 6.6 fL (7.2-11.7); MONO # 1.4 K/uL (0.0-0.8); MONO % 10.2 % (0.0-10.0); NEUT # 10.1 K/uL (1.8-7.0); NEUT % 72.6 % (50.0-75.0); NRBC % 0.1 % (0.0-2.0); RBC 3.32 Mil/uL (3.80-5.20); RED CELL DISTRIBUTION WIDTH 13.3 % (11.5-14.5); WHITE BLOOD COUNT 13.9 K/uL (4.8-10.8)
[2017-11-13 06:57] LABS: ALB/GLOB RATIO 1.2 (1.0-2.1); ALBUMIN 3.1 g/dL (3.5-5.0); CALCIUM 8.2 mg/dl (8.6-10.4)
--- NOTE | 2017-11-13 07:48 | CP.PCM.PN ---
<Duc Hirsch - Last Filed: 11/13/17 08:08> Subjective - Date & Time of Evaluation Date of Evaluation: 11/13/17 Time of Evaluation: 06:15 - Subjective Subjective: General Surgery Note for Dr. Gandhi Patient seen and examined at bedside. No acute event overnight. Patient stated pain has improved. She is tolerating diet. She admits to passing flatus. She had two BM after suppository. Patient reports to being OOB to chair and working with PT. She has no complaints at this time. Objective - Vital Signs/Intake and Output Vital Signs (last 24 hours): Temp Pulse Resp BP Pulse Ox 98.2 F 81 20 175/81 H 100 11/13/17 04:10 11/13/17 04:10 11/13/17 04:10 11/13/17 04:10 11/13/17 04:10 Intake and Output: 11/13/17 11/13/17 06:59 18:59 Intake Total 840 Output Total 501 Balance 339 - Medications Medications: Current Medications Amlodipine Besylate (Norvasc) 10 mg PO DAILY [facility] Calamine (Calamine Lotion) 5 ml TOP QSHIFT PRN PRN Reason: Allergy symptoms Last Admin: 11/10/17 10:09 Dose: 5 ml Docusate Sodium (Colace) 100 mg PO BID [facility] Last Admin: 11/12/17 17:38 Dose: 100 mg Furosemide (Lasix) 40 mg PO BID [facility] Last Admin: 11/12/17 17:39 Dose: 40 mg Gabapentin (Neurontin) 100 mg PO Q8 [facility] Last Admin: 11/13/17 05:16 Dose: 100 mg Heparin Sodium (Porcine) (Heparin) 5,000 units SC Q8 [facility] Last Admin: 11/13/17 05:17 Dose: 5,000 units Hydromorphone HCl (Dilaudid) 0.5 mg IVP Q6H PRN PRN Reason: Pain, moderate (4-7) Metronidazole 250 mg/ (Miscellaneous) 50 mls @ 100 mls/hr IVPB Q8H [facility] PRN Reason: Protocol Last Admin: 11/13/17 05:16 Dose: 100 mls/hr Meropenem 500 mg/ Sodium (Chloride) 100 mls @ 100 mls/hr IVPB Q8H [facility] PRN Reason: Protocol Last Admin: 11/13/17 03:29 Dose: 100 mls/hr Insulin Aspart (Novolog) 0 unit SC ACHS [facility] PRN Reason: Protocol Last Admin: 11/12/17 22:12 Dose: Not Given Insulin Human Isoph/Insulin Regular (Novolin 70/30 (70/30 Units/Ml) 10 Ml) 20 units SC Q12 [facility] Last Admin: 11/12/17 22:01 Dose: 20 units Losartan Potassium (Cozaar) 50 mg PO Q12 [facility] Last Admin: 11/12/17 22:01 Dose: 50 mg Montelukast Sodium (Singulair) 10 mg PO HS [facility] Last Admin: 11/12/17 22:01 Dose: 10 mg Ondansetron HCl (Zofran Inj) 4 mg IVP Q8 PRN PRN Reason: vomi Last Admin: 11/07/17 20:49 Dose: 4 mg Rosuvastatin Calcium (Crestor) 5 mg PO HS [facility] Last Admin: 11/12/17 22:01 Dose: 5 mg Sennosides (Senokot Tab) 8.6 mg PO DAILY [facility] Last Admin: 11/12/17 10:22 Dose: 8.6 mg Simethicone (Mylicon Chew Tab) 80 mg PO QID PRN PRN Reason: gas Last Admin: 11/12/17 22:10 Dose: 80 mg - Labs Labs: 11/13/17 06:20 11/13/17 06:20 PT 12.2 SECONDS (9.7-12.2) 11/08/17 11:31 INR 1.1 11/08/17 11:31 APTT 26 SECONDS (21-34) 11/08/17 11:31 - Additional Findings Additional findings: - Constitutional Appears: No Acute Distress - Head Exam Head Exam: NORMOCEPHALIC - Eye Exam Eye Exam: Normal appearance - ENT Exam ENT Exam: Mucous Membranes Moist - Respiratory Exam Respiratory Exam: NORMAL BREATHING PATTERN - Cardiovascular Exam Cardiovascular Exam: +S1, +S2 - GI/Abdominal Exam GI & Abdominal Exam: Soft, Nontender tima drain in place with 100 cc of serosanguinous output over 24 hrs - Neurological Exam Neurological Exam: Alert, Awake, Oriented x3 - Psychiatric Exam Psychiatric exam: Normal Mood - Skin Skin Exam: Dry, Intact, Warm Assessment and Plan - Assessment and Plan (Free Text) Assessment: 81F s/p laparoscopic cholecystectomy POD#5 Plan: -HHD CCD -OOB to chair, IS and ambulation -ID consulted, switched IV Antibiotics to Merrem -WBC 13.9 today from 14.1 -I's & O's -Tight blood glucose control -Further recs per Dr. Oksana Hirsch PGY2 <Jarvis Gandhi B - Last Filed: 11/16/17 19:27> Objective - Vital Signs/Intake and Output Vital Signs (last 24 hours): Temp Pulse Resp BP Pulse Ox 98.0 F 91 H 20 164/72 H 97 11/14/17 15:06 11/14/17 15:06 11/14/17 15:06 11/14/17 15:06 11/14/17 15:06 - Labs Labs: 11/14/17 06:16 11/13/17 06:20 PT 12.2 SECONDS (9.7-12.2) 11/08/17 11:31 INR 1.1 11/08/17 11:31 APTT 26 SECONDS (21-34) 11/08/17 11:31 Attending/Attestation - Attestation I have personally seen and examined this patient.: Yes I have fully participated in the care of the patient.: Yes I have reviewed all pertinent clinical information, including history, physical exam and plan: Yes Notes (Text): Pt was seen and examined at bedside Agree with above note and assessment Pt 's WBC is trending down C.w IV antibiotics DC plan Reg low fat diet C.w current mx Plan d.w pt in detail Risk and benefit explained in detail
[2017-11-13] MEDS: (Novolog) Insulin Aspart, Recombinant 100 u/ml 10 ml vial SC SCH ×4 (08:05→21:35)
[2017-11-13] MEDS: (Novolin 70/30) NPH/Regular 70/30 Units/ml 10 ml vial SC SCH ×2 (09:33→21:11)
[2017-11-13] MEDS ORDERED: Oxycodone/Acetaminophen 5/325 mg Tab PO PRN (10:56)
--- NOTE | 2017-11-13 19:35 | CP.PCM.PN ---
Subjective - Date & Time of Evaluation Date of Evaluation: 11/13/17 Time of Evaluation: 10:00 - Subjective Subjective: no fever s/p cholecystectomy Objective - Vital Signs/Intake and Output Vital Signs (last 24 hours): Temp Pulse Resp BP Pulse Ox 98.1 F 87 20 152/69 H 98 11/13/17 16:00 11/13/17 16:00 11/13/17 16:00 11/13/17 16:00 11/13/17 16:00 Intake and Output: 11/13/17 11/14/17 18:59 06:59 Intake Total 350 Output Total 40 Balance 310 - Medications Medications: Current Medications Amlodipine Besylate (Norvasc) 10 mg PO DAILY [facility] Last Admin: 11/13/17 09:34 Dose: 10 mg Calamine (Calamine Lotion) 5 ml TOP QSHIFT PRN PRN Reason: Allergy symptoms Last Admin: 11/10/17 10:09 Dose: 5 ml Docusate Sodium (Colace) 100 mg PO BID [facility] Last Admin: 11/13/17 17:50 Dose: 100 mg Furosemide (Lasix) 40 mg PO DAILY [facility] Last Admin: 11/13/17 09:34 Dose: 40 mg Gabapentin (Neurontin) 100 mg PO Q8 [facility] Last Admin: 11/13/17 13:52 Dose: 100 mg Heparin Sodium (Porcine) (Heparin) 5,000 units SC Q8 [facility] Last Admin: 11/13/17 13:52 Dose: 5,000 units Metronidazole 250 mg/ (Miscellaneous) 50 mls @ 100 mls/hr IVPB Q8H [facility] PRN Reason: Protocol Last Admin: 11/13/17 12:26 Dose: 100 mls/hr Meropenem 500 mg/ Sodium (Chloride) 100 mls @ 100 mls/hr IVPB Q8H [facility] PRN Reason: Protocol Last Admin: 11/13/17 18:55 Dose: 100 mls/hr Insulin Aspart (Novolog) 0 unit SC ACHS [facility] PRN Reason: Protocol Last Admin: 11/13/17 17:00 Dose: 4 units Insulin Human Isoph/Insulin Regular (Novolin 70/30 (70/30 Units/Ml) 10 Ml) 20 units SC Q12 [facility] Last Admin: 11/13/17 09:33 Dose: 20 units Losartan Potassium (Cozaar) 50 mg PO Q12 [facility] Last Admin: 11/13/17 09:33 Dose: 50 mg Montelukast Sodium (Singulair) 10 mg PO HS [facility] Last Admin: 11/12/17 22:01 Dose: 10 mg Ondansetron HCl (Zofran Inj) 4 mg IVP Q8 PRN PRN Reason: vomi Last Admin: 11/07/17 20:49 Dose: 4 mg Oxycodone/Acetaminophen (Percocet 5/325 Mg Tab) 1 tab PO Q4H PRN PRN Reason: Pain, moderate (4-7) Stop: 11/16/17 10:57 Rosuvastatin Calcium (Crestor) 5 mg PO HS [facility] Last Admin: 11/12/17 22:01 Dose: 5 mg Sennosides (Senokot Tab) 8.6 mg PO DAILY [facility] Last Admin: 11/13/17 09:33 Dose: 8.6 mg Simethicone (Mylicon Chew Tab) 80 mg PO QID PRN PRN Reason: gas Last Admin: 11/12/17 22:10 Dose: 80 mg - Labs Labs: 11/13/17 06:20 11/13/17 06:20 PT 12.2 SECONDS (9.7-12.2) 11/08/17 11:31 INR 1.1 11/08/17 11:31 APTT 26 SECONDS (21-34) 11/08/17 11:31 - Constitutional Appears: Non-toxic, Chronically Ill - Head Exam Head Exam: NORMOCEPHALIC - Eye Exam Eye Exam: absent: Scleral icterus - ENT Exam ENT Exam: Mucous Membranes Dry - Neck Exam Neck Exam: absent: Lymphadenopathy - Respiratory Exam Respiratory Exam: Decreased Breath Sounds - Cardiovascular Exam Cardiovascular Exam: REGULAR RHYTHM - GI/Abdominal Exam GI & Abdominal Exam: Distended, Soft - Rectal Exam Rectal Exam: Deferred - Exam Exam: NORMAL INSPECTION - Extremities Exam Extremities Exam: absent: Pedal Edema - Back Exam Back Exam: absent: CVA tenderness (L), CVA tenderness (R) - Neurological Exam Neurological Exam: Alert, Awake, Oriented x3 - Psychiatric Exam Psychiatric exam: Normal Mood Assessment and Plan (1) Cholecystitis Status: Acute - Assessment and Plan (Free Text) Assessment: cont iv merrem and flagyl
--- NOTE | 2017-11-13 20:02 | CP.PCM.PN ---
Subjective - Date & Time of Evaluation Date of Evaluation: 11/13/17 Time of Evaluation: 20:01 - Subjective Subjective: Patient seen by infectious disease yesterday. No chest pain or shortness of breath. Patient had a BM today. Feeling better. We will continue to monitor. On IV antibiotic of meropenem. Will follow-up the patient Objective - Vital Signs/Intake and Output Vital Signs (last 24 hours): Temp Pulse Resp BP Pulse Ox 98.1 F 87 20 152/69 H 98 11/13/17 16:00 11/13/17 16:00 11/13/17 16:00 11/13/17 16:00 11/13/17 16:00 Intake and Output: 11/13/17 11/14/17 18:59 06:59 Intake Total 350 Output Total 40 Balance 310 - Medications Medications: Current Medications Amlodipine Besylate (Norvasc) 10 mg PO DAILY [facility] Last Admin: 11/13/17 09:34 Dose: 10 mg Calamine (Calamine Lotion) 5 ml TOP QSHIFT PRN PRN Reason: Allergy symptoms Last Admin: 11/10/17 10:09 Dose: 5 ml Docusate Sodium (Colace) 100 mg PO BID [facility] Last Admin: 11/13/17 17:50 Dose: 100 mg Furosemide (Lasix) 40 mg PO DAILY [facility] Last Admin: 11/13/17 09:34 Dose: 40 mg Gabapentin (Neurontin) 100 mg PO Q8 [facility] Last Admin: 11/13/17 13:52 Dose: 100 mg Heparin Sodium (Porcine) (Heparin) 5,000 units SC Q8 [facility] Last Admin: 11/13/17 13:52 Dose: 5,000 units Metronidazole 250 mg/ (Miscellaneous) 50 mls @ 100 mls/hr IVPB Q8H [facility] PRN Reason: Protocol Last Admin: 11/13/17 12:26 Dose: 100 mls/hr Meropenem 500 mg/ Sodium (Chloride) 100 mls @ 100 mls/hr IVPB Q8H [facility] PRN Reason: Protocol Last Admin: 11/13/17 18:55 Dose: 100 mls/hr Insulin Aspart (Novolog) 0 unit SC ACHS [facility] PRN Reason: Protocol Last Admin: 11/13/17 17:00 Dose: 4 units Insulin Human Isoph/Insulin Regular (Novolin 70/30 (70/30 Units/Ml) 10 Ml) 20 units SC Q12 [facility] Last Admin: 11/13/17 09:33 Dose: 20 units Losartan Potassium (Cozaar) 50 mg PO Q12 [facility] Last Admin: 11/13/17 09:33 Dose: 50 mg Montelukast Sodium (Singulair) 10 mg PO HS [facility] Last Admin: 11/12/17 22:01 Dose: 10 mg Ondansetron HCl (Zofran Inj) 4 mg IVP Q8 PRN PRN Reason: vomi Last Admin: 11/07/17 20:49 Dose: 4 mg Oxycodone/Acetaminophen (Percocet 5/325 Mg Tab) 1 tab PO Q4H PRN PRN Reason: Pain, moderate (4-7) Stop: 11/16/17 10:57 Rosuvastatin Calcium (Crestor) 5 mg PO [facility] Last Admin: 11/12/17 22:01 Dose: 5 mg Sennosides (Senokot Tab) 8.6 mg PO DAILY [facility] Last Admin: 11/13/17 09:33 Dose: 8.6 mg Simethicone (Mylicon Chew Tab) 80 mg PO QID PRN PRN Reason: gas Last Admin: 11/12/17 22:10 Dose: 80 mg - Labs Labs: 11/13/17 06:20 11/13/17 06:20 PT 12.2 SECONDS (9.7-12.2) 11/08/17 11:31 INR 1.1 11/08/17 11:31 APTT 26 SECONDS (21-34) 11/08/17 11:31
[2017-11-14] MEDS: Meropenem 500 MG in Sodium Chloride 0.9% 100 ML IVPB SCH ×3 (03:38→19:07)
[2017-11-14] MEDS: metroNIDAZOLE IV 500 mg/100 ml 250 MG in Premixed IV 1 EA IVPB SCH ×3 (05:33→21:37)
[2017-11-14 06:25] LABS: HEMOGLOBIN 9.1 g/dL (11.0-16.0); MEAN CELL VOLUME 83.7 fL (81.0-99.0); MEAN CORPUSCULAR HEMOGLOBIN 27.2 pg (27.0-31.0); MEAN CORPUSCULAR HGB CONC 32.5 g/dL (33.0-37.0); MEAN PLATELET VOLUME 6.6 fL (7.2-11.7); RBC 3.33 Mil/uL (3.80-5.20); WHITE BLOOD COUNT 13.2 K/uL (4.8-10.8)
--- NOTE | 2017-11-14 07:21 | CP.PCM.PN ---
Addendum entered and electronically signed by Binu Solis DO 11/14/17 14:58: Correction: Pt going to [facility], as per ID 5 days of IV Antibiotics NOT oral Addendum entered and electronically signed by Binu Solis DO 11/14/17 14:33: Pt clear for discharge from a surgical standpoint on Oral Antibiotics. Take percocet and colace as prescribed Let steri-strips fall off on own No heavy lifting for 4 weeks Patient to sponge bath until follow up with Dr. Gandhi Keep surgical areas clean and dry Follow up with Dr. Gandhi within 1-[address] Gandhi regarding any issues Original Note: <Binu Solis - Last Filed: 11/14/17 13:18> Subjective - Date & Time of Evaluation Date of Evaluation: 11/14/17 Time of Evaluation: 07:16 - Subjective Subjective: General Surgery Note for Dr. Gandhi Patient seen and examined at bedside. No acute events overnight. Patient stated pain has improved. She is tolerating diet. She admits to passing flatus. She had two BM after suppository. Patient reports to being OOB to chair and working with PT. She has no complaints at this time. Objective - Vital Signs/Intake and Output Vital Signs (last 24 hours): Temp Pulse Resp BP Pulse Ox 97 F L 84 20 161/74 H 100 11/14/17 04:10 11/14/17 04:10 11/14/17 04:10 11/14/17 04:10 11/14/17 04:10 Intake and Output: 11/14/17 11/14/17 06:59 18:59 Intake Total 470 Output Total 60 Balance 410 - Medications Medications: Current Medications Amlodipine Besylate (Norvasc) 10 mg PO DAILY [facility] Last Admin: 11/13/17 09:34 Dose: 10 mg Calamine (Calamine Lotion) 5 ml TOP QSHIFT PRN PRN Reason: Allergy symptoms Last Admin: 11/10/17 10:09 Dose: 5 ml Docusate Sodium (Colace) 100 mg PO BID [facility] Last Admin: 11/13/17 17:50 Dose: 100 mg Furosemide (Lasix) 40 mg PO DAILY [facility] Last Admin: 11/13/17 09:34 Dose: 40 mg Gabapentin (Neurontin) 100 mg PO Q8 [facility] Last Admin: 11/14/17 05:33 Dose: 100 mg Heparin Sodium (Porcine) (Heparin) 5,000 units SC Q8 [facility] Last Admin: 11/14/17 05:33 Dose: 5,000 units Metronidazole 250 mg/ (Miscellaneous) 50 mls @ 100 mls/hr IVPB Q8H [facility] PRN Reason: Protocol Last Admin: 11/14/17 05:33 Dose: 100 mls/hr Meropenem 500 mg/ Sodium (Chloride) 100 mls @ 100 mls/hr IVPB Q8H [facility] PRN Reason: Protocol Last Admin: 11/14/17 03:38 Dose: 100 mls/hr Insulin Aspart (Novolog) 0 unit SC ACHS [facility] PRN Reason: Protocol Last Admin: 11/13/17 21:35 Dose: Not Given Insulin Human Isoph/Insulin Regular (Novolin 70/30 (70/30 Units/Ml) 10 Ml) 20 units SC Q12 [facility] Last Admin: 11/13/17 21:11 Dose: 20 units Losartan Potassium (Cozaar) 50 mg PO Q12 [facility] Last Admin: 11/13/17 21:01 Dose: 50 mg Montelukast Sodium (Singulair) 10 mg PO HS [facility] Last Admin: 11/13/17 21:01 Dose: 10 mg Ondansetron HCl (Zofran Inj) 4 mg IVP Q8 PRN PRN Reason: vomi Last Admin: 11/07/17 20:49 Dose: 4 mg Oxycodone/Acetaminophen (Percocet 5/325 Mg Tab) 1 tab PO Q4H PRN PRN Reason: Pain, moderate (4-7) Stop: 11/16/17 10:57 Rosuvastatin Calcium (Crestor) 5 mg PO HS [facility] Last Admin: 11/13/17 21:01 Dose: 5 mg Sennosides (Senokot Tab) 8.6 mg PO DAILY [facility] Last Admin: 11/13/17 09:33 Dose: 8.6 mg Simethicone (Mylicon Chew Tab) 80 mg PO QID PRN PRN Reason: gas Last Admin: 11/12/17 22:10 Dose: 80 mg - Labs Labs: 11/14/17 06:16 11/13/17 06:20 PT 12.2 SECONDS (9.7-12.2) 11/08/17 11:31 INR 1.1 11/08/17 11:31 APTT 26 SECONDS (21-34) 11/08/17 11:31 - Constitutional Appears: Well, Non-toxic, No Acute Distress - Head Exam Head Exam: ATRAUMATIC, NORMAL INSPECTION, NORMOCEPHALIC - Eye Exam Eye Exam: EOMI, Normal appearance - ENT Exam ENT Exam: Mucous Membranes Moist, Normal Exam - Respiratory Exam Respiratory Exam: Accessory Muscle Use, NORMAL BREATHING PATTERN. absent: Respiratory Distress - Cardiovascular Exam Cardiovascular Exam: REGULAR RHYTHM, +S1, +S2. absent: Murmur - GI/Abdominal Exam GI & Abdominal Exam: Soft, Normal Bowel Sounds. absent: Tenderness Additional comments: dressings c/d/i 30cc serosanguinous output - Rectal Exam Rectal Exam: Deferred - Neurological Exam Neurological Exam: Alert, Awake, Oriented x3 - Psychiatric Exam Psychiatric exam: Normal Affect, Normal Mood - Skin Skin Exam: Dry, Intact, Normal Color, Warm Assessment and Plan - Assessment and Plan (Free Text) Assessment: 81F s/p laparascopic cholecystectomy POD6 Plan: -Diabetic CCD -OOB to chair, IS and ambulation, PT -ID consulted, switched IV Antibiotics to Merrem -WBC 13.2 today from 13.9 -I's & O's -Tight blood glucose control -Further recs per Dr. Oksana Solis PGY1 <Jarvis Gandhi - Last Filed: 11/16/17 19:38> Objective - Vital Signs/Intake and Output Vital Signs (last 24 hours): Temp Pulse Resp BP Pulse Ox 98.0 F 91 H 20 164/72 H 97 11/14/17 15:06 11/14/17 15:06 11/14/17 15:06 11/14/17 15:06 11/14/17 15:06 - Labs Labs: 11/14/17 06:16 11/13/17 06:20 PT 12.2 SECONDS (9.7-12.2) 11/08/17 11:31 INR 1.1 11/08/17 11:31 APTT 26 SECONDS (21-34) 11/08/17 11:31 Attending/Attestation - Attestation I have fully participated in the care of the patient.: Yes I have reviewed all pertinent clinical information, including history, physical exam and plan: Yes Notes (Text): Pt is improving Can be DC to rehab with IV antibiotics as per ID Local wound care f.u as out pt Plan d.w pt in detail
[2017-11-14] MEDS: (Novolog) Insulin Aspart, Recombinant 100 u/ml 10 ml vial SC SCH ×4 (07:44→21:38)
[2017-11-14 08:24] VITALS: O2SAT 97
[2017-11-14] MEDS: (Novolin 70/30) NPH/Regular 70/30 Units/ml 10 ml vial SC SCH ×2 (10:09→21:38)
[2017-11-14 16:39] VITALS: BP 164/72; PULSE 91; TEMP 98
--- NOTE | 2017-11-14 17:30 | CP.PCM.PN ---
Subjective - Date & Time of Evaluation Date of Evaluation: 11/14/17 Time of Evaluation: 09:00 - Subjective Subjective: afeb awake alert nad Objective - Vital Signs/Intake and Output Vital Signs (last 24 hours): Temp Pulse Resp BP Pulse Ox 98.0 F 91 H 20 164/72 H 97 11/14/17 15:06 11/14/17 15:06 11/14/17 15:06 11/14/17 15:06 11/14/17 15:06 Intake and Output: 11/14/17 11/14/17 06:59 18:59 Intake Total 470 200 Output Total 60 30 Balance 410 170 - Medications Medications: Current Medications Amlodipine Besylate (Norvasc) 10 mg PO DAILY [facility] Last Admin: 11/14/17 10:08 Dose: 10 mg Calamine (Calamine Lotion) 5 ml TOP QSHIFT PRN PRN Reason: Allergy symptoms Last Admin: 11/10/17 10:09 Dose: 5 ml Docusate Sodium (Colace) 100 mg PO BID [facility] Last Admin: 11/14/17 17:18 Dose: 100 mg Furosemide (Lasix) 40 mg PO DAILY [facility] Last Admin: 11/14/17 10:08 Dose: 40 mg Gabapentin (Neurontin) 100 mg PO Q8 [facility] Last Admin: 11/14/17 14:17 Dose: 100 mg Heparin Sodium (Porcine) (Heparin) 5,000 units SC Q8 [facility] Last Admin: 11/14/17 14:17 Dose: 5,000 units Metronidazole 250 mg/ (Miscellaneous) 50 mls @ 100 mls/hr IVPB Q8H [facility] PRN Reason: Protocol Last Admin: 11/14/17 14:18 Dose: 100 mls/hr Meropenem 500 mg/ Sodium (Chloride) 100 mls @ 100 mls/hr IVPB Q8H [facility] PRN Reason: Protocol Last Admin: 11/14/17 10:09 Dose: 100 mls/hr Insulin Aspart (Novolog) 0 unit SC ACHS [facility] PRN Reason: Protocol Last Admin: 11/14/17 17:18 Dose: 4 units Insulin Human Isoph/Insulin Regular (Novolin 70/30 (70/30 Units/Ml) 10 Ml) 20 units SC Q12 [facility] Last Admin: 11/14/17 10:09 Dose: 20 units Losartan Potassium (Cozaar) 50 mg PO Q12 [facility] Last Admin: 11/14/17 10:08 Dose: 50 mg Montelukast Sodium (Singulair) 10 mg PO HS [facility] Last Admin: 11/13/17 21:01 Dose: 10 mg Ondansetron HCl (Zofran Inj) 4 mg IVP Q8 PRN PRN Reason: vomi Last Admin: 11/07/17 20:49 Dose: 4 mg Oxycodone/Acetaminophen (Percocet 5/325 Mg Tab) 1 tab PO Q4H PRN PRN Reason: Pain, moderate (4-7) Stop: 11/16/17 10:57 Rosuvastatin Calcium (Crestor) 5 mg PO HS [facility] Last Admin: 11/13/17 21:01 Dose: 5 mg Sennosides (Senokot Tab) 8.6 mg PO DAILY [facility] Last Admin: 11/14/17 10:08 Dose: 8.6 mg Simethicone (Mylicon Chew Tab) 80 mg PO QID PRN PRN Reason: gas Last Admin: 11/12/17 22:10 Dose: 80 mg - Labs Labs: 11/14/17 06:16 11/13/17 06:20 PT 12.2 SECONDS (9.7-12.2) 11/08/17 11:31 INR 1.1 11/08/17 11:31 APTT 26 SECONDS (21-34) 11/08/17 11:31 - Constitutional Appears: Non-toxic, Chronically Ill - Head Exam Head Exam: NORMOCEPHALIC - Eye Exam Eye Exam: PERRL - ENT Exam ENT Exam: Mucous Membranes Dry - Neck Exam Neck Exam: absent: Lymphadenopathy - Respiratory Exam Respiratory Exam: Decreased Breath Sounds - Cardiovascular Exam Cardiovascular Exam: REGULAR RHYTHM - GI/Abdominal Exam GI & Abdominal Exam: Distended, Soft, Tenderness - Rectal Exam Rectal Exam: Deferred - Exam Exam: NORMAL INSPECTION - Extremities Exam Extremities Exam: Pedal Edema - Back Exam Back Exam: absent: CVA tenderness (L), CVA tenderness (R) - Neurological Exam Neurological Exam: Alert, Awake, Oriented x3 - Psychiatric Exam Psychiatric exam: Normal Mood - Skin Skin Exam: Dry Assessment and Plan (1) Cholecystitis Status: Acute - Assessment and Plan (Free Text) Assessment: d/c on IV rx to cont for 5 more days
[2017-11-14] MEDS: Simethicone 80 mg Chewtab PO PRN (21:38)
--- NOTE | 2017-11-15 15:49 | CP.PCM.PN ---
Subjective - Date & Time of Evaluation Date of Evaluation: 11/12/17 Time of Evaluation: 15:49 - Subjective Subjective: Patient is currently feeling well. Abdominal discomfort minimally noted. Elevated WBC noted. Patient was seen by infectious disease. Spoke to the surgery. Eating well. Vital signs stable Elevated blood pressure, sugar noted Chest good air entry Regular heart sound Assessment and recommendation: 81-year-old female with a diabetes hypertension hypercholesterolemia admitted with acute cholecystitis. Status post cholecystectomy. Stable. We will continue the current treatment. On intravenous IV antibiotic. Discussed with the ID for possible duration of antibiotic. And plan for discharge after that Objective - Vital Signs/Intake and Output Vital Signs (last 24 hours): Temp Pulse Resp BP Pulse Ox 98.0 F 91 H 20 164/72 H 97 11/14/17 15:06 11/14/17 15:06 11/14/17 15:06 11/14/17 15:06 11/14/17 15:06 - Labs Labs: 11/14/17 06:16 11/13/17 06:20 PT 12.2 SECONDS (9.7-12.2) 11/08/17 11:31 INR 1.1 11/08/17 11:31 APTT 26 SECONDS (21-34) 11/08/17 11:31
--- NOTE | 2017-11-15 15:50 | CP.PCM.DIS ---
Provider - Provider Date of Admission: 11/07/17 07:07 Attending physician: Sangita Sun MD Time Spent in preparation of Discharge (in minutes): 45 Hospital Course - Lab Results Lab Results: Micro Results 11/07/17 06:46 Blood Blood Culture - Final NO GROWTH AFTER 5 DAYS 11/07/17 06:46 Blood Gram Stain - Final TEST NOT PERFORMED 11/07/17 06:46 Blood Blood Culture - Final NO GROWTH AFTER 5 DAYS 11/08/17 15:00 Bile Gram Stain - Final 11/08/17 15:00 Bile Body Fluid Culture - Final Streptococcus Species 11/07/17 13:00 Urine,Clean Catch Urine Culture - Final 10-50,000 CFU/ML. MULTIPLE SPECIES. PROBABLE CONTAMINATION. Most Recent Lab Values WBC 13.2 K/uL (4.8-10.8) H 11/14/17 06:16 RBC 3.33 Mil/uL (3.80-5.20) L 11/14/17 06:16 Hgb 9.1 g/dL (11.0-16.0) L 11/14/17 06:16 Hct 27.9 % (34.0-47.0) L 11/14/17 06:16 MCV 83.7 fL (81.0-99.0) 11/14/17 06:16 MCH 27.2 pg (27.0-31.0) 11/14/17 06:16 MCHC 32.5 g/dL (33.0-37.0) L 11/14/17 06:16 RDW 13.0 % (11.5-14.5) 11/14/17 06:16 Plt Count 230 K/uL (130-400) 11/14/17 06:16 MPV 6.6 fL (7.2-11.7) L 11/14/17 06:16 Neut % (Auto) 72.6 % (50.0-75.0) 11/13/17 06:20 Lymph % (Auto) 14.8 % (20.0-40.0) L 11/13/17 06:20 [place] % (Auto) 10.2 % (0.0-10.0) H 11/13/17 06:20 Eos % (Auto) 2.1 % (0.0-4.0) 11/13/17 06:20 Baso % (Auto) 0.3 % (0.0-2.0) 11/13/17 06:20 Neut # (Auto) 10.1 K/uL (1.8-7.0) H 11/13/17 06:20 Lymph # (Auto) 2.1 K/uL (1.0-4.3) 11/13/17 06:20 [place] # (Auto) 1.4 K/uL (0.0-0.8) H 11/13/17 06:20 Eos # (Auto) 0.3 K/uL (0.0-0.7) 11/13/17 06:20 Baso # (Auto) 0.0 K/uL (0.0-0.2) 11/13/17 06:20 Neutrophils % (Manual) 83 % (50-75) H 11/09/17 11:36 Band Neutrophils % 3 % (0-2) H 11/07/17 23:59 Lymphocytes % (Manual) 13 % (20-40) L 11/09/17 11:36 Monocytes % (Manual) 3 % (0-10) 11/09/17 11:36 Eosinophils % (Manual) 1 % (0-4) 11/09/17 11:36 Platelet Estimate Normal (NORMAL) 11/09/17 11:36 Polychromasia Slight 11/09/17 11:36 Hypochromasia (manual) Slight 11/09/17 11:36 Poikilocytosis (manual Slight 11/07/17 23:59 Anisocytosis (manual) Slight 11/07/17 23:59 PT 12.2 SECONDS (9.7-12.2) 11/08/17 11:31 INR 1.1 11/08/17 11:31 APTT 26 SECONDS (21-34) 11/08/17 11:31 Puncture Site Rra 11/07/17 07:55 pCO2 33 mm/Hg (35-45) L 11/07/17 07:55 pO2 132 mm/Hg (80-100) H 11/07/17 07:55 HCO3 21.1 mmol/L (21-28) 11/07/17 07:55 ABG pH 7.38 (7.35-7.45) 11/07/17 07:55 ABG Total CO2 20.5 mmol/L (22-28) L 11/07/17 07:55 ABG O2 Saturation 99.5 % (95-98) H 11/07/17 07:55 ABG Base Excess -4.9 mmol/L (-2.0-3.0) L 11/07/17 07:55 ABG Hemoglobin 10.4 g/dL (11.7-17.4) L 11/07/17 07:55 ABG Carboxyhemoglobin 1.9 % (0.5-1.5) H 11/07/17 07:55 POC ABG HHb (Measured) 0.5 % (0.0-5.0) 11/07/17 07:55 ABG Methemoglobin 2.0 % (0.0-3.0) 11/07/17 07:55 Alexander Test Pos 11/07/17 07:55 A-a O2 Difference -24.0 mm/Hg 11/07/17 07:55 Respiratory Index -0.2 11/07/17 07:55 Hgb O2 Saturation 95.6 % (95.0-98.0) 11/07/17 07:55 FiO2 21.0 % 11/07/17 07:55 Sodium 134 mmol/L (132-148) 11/13/17 06:20 Potassium 4.4 mmol/L (3.6-5.2) 11/13/17 06:20 Chloride 99 mmol/L (98-107) 11/13/17 06:20 Carbon Dioxide 27 mmol/L (22-30) 11/13/17 06:20 Anion Gap 13 (10-20) 11/13/17 06:20 BUN 32 mg/dL (7-17) H 11/13/17 06:20 Creatinine 1.3 mg/dL (0.7-1.2) H 11/13/17 06:20 Est GFR ( Amer) 47 11/13/17 06:20 Est GFR (Non-Af Amer) 39 11/13/17 06:20 POC Glucose (mg/dL) 308 mg/dL (65-110) H 11/14/17 21:13 Random Glucose 102 mg/dL (65-105) 11/13/17 06:20 Calcium 8.2 mg/dl (8.6-10.4) L 11/13/17 06:20 Phosphorus 3.6 mg/dL (2.5-4.5) 11/07/17 12:29 Magnesium 2.2 mg/dL (1.6-2.3) 11/12/17 06:18 Total Bilirubin 0.3 mg/dL (0.2-1.3) 11/13/17 06:20 AST 37 U/L (14-36) H D 11/13/17 06:20 ALT 31 U/L (9-52) 11/13/17 06:20 Alkaline Phosphatase 88 U/L (38-126) 11/13/17 06:20 Total Protein 5.8 g/dL (6.3-8.3) L 11/13/17 06:20 Albumin 3.1 g/dL (3.5-5.0) L 11/13/17 06:20 Globulin 2.7 gm/dL (2.2-3.9) 11/13/17 06:20 Albumin/Globulin Ratio 1.2 (1.0-2.1) 11/13/17 06:20 Lipase 181 U/L (23-300) 11/07/17 23:59 Urine Color Yellow (YELLOW) 11/07/17 05:01 Urine Clarity Hazy (Clear) 11/07/17 05:01 Urine pH 5.0 (5.0-8.0) 11/07/17 05:01 Ur Specific [place] 1.012 (1.003-1.030) 11/07/17 05:01 Urine Protein 2+ mg/dL (NEGATIVE) H 11/07/17 05:01 Urine Glucose (UA) 1+ mg/dL (Normal) 11/07/17 05:01 Urine Ketones Negative mg/dL (NEGATIVE) 11/07/17 05:01 Urine Blood Negative (NEGATIVE) 11/07/17 05:01 Urine Nitrate Negative (NEGATIVE) 11/07/17 05:01 Urine Bilirubin Negative (NEGATIVE) 11/07/17 05:01 Urine Urobilinogen Normal mg/dL (0.2-1.0) 11/07/17 05:01 Ur Leukocyte Esterase 1+ [place]/uL (Negative) H 11/07/17 05:01 Urine WBC (Auto) 12 /hpf (0-5) H 11/07/17 05:01 Urine RBC (Auto) 1 /hpf (0-3) 11/07/17 05:01 Ur Squamous Epith Cells 7 /hpf (0-5) H 11/07/17 05:01 Urine Bacteria Rare (<OCC) 11/07/17 05:01 Hyaline Casts 0-2 /lpf (0-2) 11/07/17 05:01 - Hospital Course Hospital Course: Chief complaint: Abdominal pain of sudden onset. History present illness: 81-year-old female with a history of bronchial asthma, hypertension, diabetes, hypercholesteremia, allergic rhinitis, osteoporosis, diabetic neuropathy, bronchial asthma and bronchitis. Patient also has a chronic renal insufficiency. Chronic pedal edema. Patient came to the emergency room with a sudden onset of right upper quadrant abdominal pain, associate with the nausea, and also reaching and vomiting noted. Patient in the emergency room was evaluated. She was having the symptoms starting the night before the admission. She was also having some chills, but no fever noted. Vomiting mostly very scanty, and also associated with epigastric discomfort and pain. No blood noted. Patient did not have any BM. Patient was taking her regular medications. No chest pain noted, no shortness of breath. But she was feeling extremely sick Past medical history: Diabetes hypertension and hypercholesteremia bronchial asthma renal insufficiency chronic pedal edema Allergy and patient is allergic to penicillin. Surgical history: Personal history nonsmoker nonalcoholic, lives with the family review of system: Patient now having increasing abdominal discomfort, abdominal pain, nausea, vomiting. Does not have any bowel movements properly, diarrhea negative. Medications: Patient currently taking omeprazole, zolpidem, gabapentin, losartan, glimepride Levemir, Lasix Vital signs reviewed No neck vein distention noted Chest good air entry bilaterally, no wheezing or rales noted CVS regular heart sound, no murmur noted Significant abdominal diffuse tenderness noted, mostly in the right upper quadrant region. Patient has a edema bilaterally. Patient has a significant deformity in the left wrist, and associated swelling. [employer]WHIDE [employer]ER alert awake oriented 3, no functional neurological deficit, Patient's labs reviewed WBC elevated noted. Repeat WBC also noted to be elevated. Patient was allergic to penicillin, ciprofloxacin, Flagyl ordered. Later HIDA scan was attempted. Patient will be going for HIDA scan. If HIDA scan is positive patient will get possible surgical intervention. Sonogram of the abdomen showing evidence of distended gallbladder. No stones noted. Assessment and recommendation: 81-year-old female with history of diabetes hypertension and hypercholesteremia , bronchial asthma , pedal edema admitted now Possible acute cholecystitis. Most likely an acalculous cholecystitis. We will get a HIDA scan. Surgical evaluation. Glucose monitoring. Antibiotic. DVT and GI prophylaxis. The patient initially admitted with a possible acute cholecystitis. Patient underwent HIDA scan, which was showing evidence of complete nonvisualization of the gallbladder Surgical evaluation was called. Patient underwent a laparoscopic cholecystectomy on 11/08/2017. Patient postoperatively did well. But her white count started climbing up. Also specimen showing evidence of Streptococcus bacteria The patient is allergic to penicillin, infectious disease evaluation was called. Patient started on meropenem. Patient clinically improved. Able to eat well. Blood sugar, and blood pressure controlled well with the medications. She was able to walk with the assistance. Surgical clearance was done. Needed IV antibiotic for 7 more days. Patient will be discharged to rehab. She will follow-up as an outpatient after the rehab Final diagnosis: Acute cholecystitis. Acute sepsis Hypertension. Diabetes. Hypercholesterolemia. Discussed with the family. We will follow the patient Discharge Exam - Head Exam Head Exam: NORMOCEPHALIC Discharge Plan - Follow Up Plan Condition: GOOD Disposition: REHAB FACILITY/REHAB UNIT Instructions: Hypokalemia (DC), Cholecystectomy (DC), Cholecystectomy, Laparoscopic Surgery, Managing Pain After Surgery, Cholecystitis (DC) Referrals: Sangita Sun MD [Staff Provider] - Jarvis Gandhi MD [Staff Provider] -
== END 2017-11-14 22:37 | DRG 854 ==
LOC: C.ER 04:16 → C.9E 07:07 → C.6T 14:29
PROVIDERS: ADMIT Internal Medicine; ATTEND Internal Medicine
PROC: 0DNW4ZZ Release Peritoneum, Percutaneous Endoscopic Approach (ICD-10-PCS; 2017-11-08)
PROC: 0F9440Z Drainage of Gallbladder with Drainage Device, Percutaneous Endoscopic Approach (ICD-10-PCS; 2017-11-08)
PROC: 0FT44ZZ Resection of Gallbladder, Percutaneous Endoscopic Approach (ICD-10-PCS; principal; 2017-11-08 14:15)
DX: A41.9 Sepsis, unspecified organism (principal); K81.0 Acute cholecystitis; E11.22 Type 2 diabetes mellitus with diabetic chronic kidney disease; I12.9 Hypertensive chronic kidney disease with stage 1 through stage 4 chronic kidney disease, or unspecified chronic kidney disease; N18.9 Chronic kidney disease, unspecified; R65.20 Severe sepsis without septic shock; E78.00 Pure hypercholesterolemia, unspecified; G20 Parkinson's disease; E66.01 Morbid (severe) obesity due to excess calories; Z68.30 Body mass index [BMI] 30.0-30.9, adult; E11.40 Type 2 diabetes mellitus with diabetic neuropathy, unspecified; K82.8 Other specified diseases of gallbladder; J45.909 Unspecified asthma, uncomplicated; K66.0 Peritoneal adhesions (postprocedural) (postinfection); M81.0 Age-related osteoporosis without current pathological fracture; Z88.0 Allergy status to penicillin

== ENCOUNTER 2017-12-10 14:07 | Inpatient (IN) | payer MEDICARE ==
[2017-12-10 14:25] VITALS: BMI 33.6
--- NOTE | 2017-12-10 14:51 | RAD ---
Date of service: 12/10/2017 PROCEDURE: CHEST RADIOGRAPH, 1 VIEW HISTORY: Shortness of breath COMPARISON: 11/07/2017. FINDINGS: LUNGS: The lungs are well inflated and clear. PLEURA: No pneumothorax or pleural fluid seen. CARDIOVASCULAR: The heart is normal in size. Atherosclerotic aortic arch calcifications are present. OSSEOUS STRUCTURES: No significant abnormalities. VISUALIZED UPPER ABDOMEN: Normal. OTHER FINDINGS: None. IMPRESSION: No active pulmonary disease.
--- NOTE | 2017-12-10 14:55 | C.PDOC ---
History Of Present Illness 81-year-old female, presents to the emergency department with complaints of feeling generalized weakness, fatigue and shortness of breath, associated with mild chest discomfort. Patient notes she was seen in Dr Sun office two days ago, where she had routine blood work done, and was told to come to ED for evaluation of "low hemoglobin." Pt states level is unknown. Of note, pt had cholecystectomy on 11/08. Time Seen by Provider: 12/10/17 14:21 Chief Complaint (Nursing): Abnormal Labs History Per: Patient History/Exam Limitations: no limitations Onset/Duration Of Symptoms: Days Past Medical History Reviewed: Historical Data, Nursing Documentation, Vital Signs Vital Signs: Last Vital Signs Temp 98.3 F 12/10/17 14:20 Pulse 100 H 12/10/17 14:27 Resp 22 12/10/17 14:20 BP 116/56 L 12/10/17 14:27 Pulse Ox 100 12/10/17 15:00 - Medical History PMH: Arthritis, Asthma, Diabetes, Fractures (left wrist), HTN, Parkinson's Disease, Pneumonia - [facility] Procedures DRAINAGE OF GALLBLADDER WITH DRAIN DEV, PERC ENDO APPROACH (11/07/17) ESOPHAGOGASTRODUODENOSCOPY [EGD] W/CLOSED BIOPSY (05/29/01) RELEASE PERITONEUM, PERCUTANEOUS ENDOSCOPIC APPROACH (11/07/17) RESECTION OF GALLBLADDER, PERCUTANEOUS ENDOSCOPIC APPROACH (11/07/17) Family History: States: No Known Family Hx - Social History Hx Tobacco Use: No Hx Alcohol Use: No Hx Substance Use: No - Immunization History Hx Tetanus Toxoid Vaccination: No Hx Influenza Vaccination: Yes Hx Pneumococcal Vaccination: Yes Review Of Systems Constitutional: Positive for: Weakness. Negative for: Fever, Chills Cardiovascular: Positive for: Chest Pain Respiratory: Positive for: Shortness of Breath Gastrointestinal: Negative for: Nausea, Vomiting, Abdominal Pain, Melena, Hematochezia Physical Exam - Physical Exam Appears: Non-toxic, No Acute Distress Skin: Warm, Dry, Pale Head: Atraumatic, Normacephalic Eye(s): bilateral: Normal Inspection, PERRL, EOMI Nose: Normal Oral Mucosa: Moist Lips: Normal Appearing Neck: Normal ROM Cardiovascular: Rhythm Regular (Borderline tach), No Murmur Respiratory: Normal Breath Sounds, No Accessory Muscle Use Gastrointestinal/Abdominal: Soft Back: Normal Inspection Extremity: Normal ROM, No Deformity, Swelling (with venous stasis pigmentation) Extremity: Bilateral: No Pedal Edema (mild 1+ edema) Pulses: Left Carotid: Normal, Right Carotid: Normal Neurological/Psych: Oriented x3, Normal Speech, Normal Cognition, Normal Cranial Nerves, Normal Motor, Normal Sensation ED Course And Treatment - Laboratory Results Result Diagrams: 12/10/17 15:11 12/10/17 15:11 Lab Interpretation: Abnormal (Hgb 5.4, Hct 16.9, BUN 65, Cr 1.9, WBC 12.8) ECG: Interpreted By Me ECG Rhythm: Sinus Rhythm, R BBB ECG Interpretation: No Acute Changes O2 Sat by Pulse Oximetry: 100 Pulse Ox Interpretation: Normal (RA) - Radiology CXR: Viewed By Me, Read By Radiologist CXR Interpretation: Yes: No Acute Disease - Physician Consult Information Time Consulting Physician Contacted: 03:40 Physician Contacted: Sangita Sun Outcome Of Conversation: Patient to be admitted for new anemia with renal insufficiency. Disposition - Disposition Disposition: HOSPITALIZED Disposition Time: 15:53 Condition: FAIR - POA Present On Arrival: None - Clinical Impression Clinical Impression: Anemia, Renal insufficiency - Scribe Statement The provider has reviewed the documentation as recorded by the Scribe (Luis Armando Lai) All medical record entries made by the Scribe were at my direction and personally dictated by me. I have reviewed the chart and agree that the record accurately reflects my personal performance of the history, physical exam, medical decision making, and the department course for this patient. I have also personally directed, reviewed, and agree with the discharge instructions and disposition.
[2017-12-10 15:17] LABS: BASO % 0.2 % (0.0-2.0); EOS # 0.3 K/uL (0.0-0.7); EOS % 2.1 % (0.0-4.0); LYMPH # 2.2 K/uL (1.0-4.3); LYMPH % 17.1 % (20.0-40.0); MEAN CORPUSCULAR HEMOGLOBIN 28.1 pg (27.0-31.0); MEAN CORPUSCULAR HGB CONC 32.1 g/dL (33.0-37.0); MEAN PLATELET VOLUME 6.8 fL (7.2-11.7); MONO # 0.7 K/uL (0.0-0.8); MONO % 5.7 % (0.0-10.0); NEUT # 9.6 K/uL (1.8-7.0); NEUT % 74.9 % (50.0-75.0); NRBC % 0.5 % (0.0-2.0); RBC 1.93 Mil/uL (3.80-5.20); RED CELL DISTRIBUTION WIDTH 15.6 % (11.5-14.5); WHITE BLOOD COUNT 12.8 K/uL (4.8-10.8)
[2017-12-10 15:22] LABS: HEMOGLOBIN 5.4 g/dL (11.0-16.0); MEAN CELL VOLUME 87.5 fL (81.0-99.0)
[2017-12-10 15:26] LABS: PROTHROMBIN TIME 10.8 SECONDS (9.7-12.2)
[2017-12-10 15:34] LABS: ALB/GLOB RATIO 1.3 (1.0-2.1); ALBUMIN 3.8 g/dL (3.5-5.0); CALCIUM 9.5 mg/dl (8.6-10.4)
[2017-12-10 15:41] LABS: SQUAMOUS EPITHIAL < 1 /hpf (0-5); URINE BACTERIA RARE (<OCC); URINE BILIRUBIN NEGATIVE (NEGATIVE); URINE BLOOD NEGATIVE (NEGATIVE); URINE CLARITY Clear (Clear); URINE COLOR Colorless (YELLOW); URINE GLUCOSE (UA) NORMAL (Normal); URINE LEUKOCYTE ESTERASE NEG Leu/uL (Negative); URINE PROTEIN NEGATIVE (NEGATIVE); URINE UROBILINOGEN NORMAL mg/dL (0.2-1.0)
--- NOTE | 2017-12-10 18:34 | CP.PCM.CON ---
History of Present Illness - History of Present Illness History of Present Illness: CC: anemia HPI: 81 year old Hypertensive woman admitted via Dr Sun for symptomatic anemia, dyspnea, weakness, Hgb 5, saw darker BMs not melenic 2 days ago. Denies abdominal pain, change in bowel habits, nausea, vomiting. Denies ASA/NSAID or antiplatelet medications. No prior history of GI illness. Screening Colonoscopy by me in 2010 normal. Review of Systems - Constitutional Constitutional: As Per HPI, Weakness - EENT Eyes: absent: Change in Vision - Breasts Breasts: absent: Pain - Cardiovascular Cardiovascular: Dyspnea, Dyspnea on Exertion. absent: Chest Pain - Respiratory Respiratory: Dyspnea, Dyspnea on Exertion. absent: Cough - Gastrointestinal Gastrointestinal: Abdominal Pain, Melena. absent: Hematochezia - Genitourinary Genitourinary: absent: Difficulty Urinating - Musculoskeletal Musculoskeletal: absent: Back Pain - Integumentary Integumentary: absent: Jaundice - Neurological Neurological: Weakness - Psychiatric Psychiatric: absent: Behavioral Changes - Endocrine Endocrine: absent: Polydipsia - Hematologic/Lymphatic Hematologic: absent: Easy Bleeding Past Patient History - Past Medical History & Family History Past Medical History?: Yes - Past Social History Smoking Status: Never Smoked - CARDIAC Hx Hypertension: Yes - PULMONARY Hx Asthma: Yes Hx Pneumonia: Yes - NEUROLOGICAL Hx Parkinson's Disease: Yes - ENDOCRINE/METABOLIC Hx Endocrine Disorders: Yes Hx Diabetes Mellitus Type 1: Yes Hx Diabetes Mellitus Type 2: Yes - MUSCULOSKELETAL/RHEUMATOLOGICAL Hx Arthritis: Yes Hx Fractures: Yes (left wrist) - PSYCHIATRIC Hx Substance Use: No - SURGICAL HISTORY Hx Surgeries: Yes Hx Section: Yes (x3) Hx Hysterectomy: Yes Hx Orthopedic Surgery: Yes (left wrist) - ANESTHESIA Hx Anesthesia: Yes Hx Anesthesia Reactions: No Hx Malignant Hyperthermia: No Meds Allergies/Adverse Reactions: Allergies Allergy/AdvReac Type Severity Reaction Status Date / Time Penicillins Allergy RASH Verified 12/10/17 14:22 - Medications Medications: Current Medications Albuterol/Ipratropium (Duoneb 3 Mg/0.5 Mg (3 Ml) Ud) 3 ml INH RQ6 MARCELINO Sodium Chloride (Sodium Chloride 0.45%) 500 mls @ 50 mls/hr IV .Q10H MARCELINO Losartan Potassium (Cozaar) 50 mg PO DAILY MARCELINO Last Admin: 12/10/17 17:44 Dose: 50 mg Montelukast Sodium (Singulair) 10 mg PO HS [facility] Pantoprazole Sodium (Protonix Inj) 40 mg IVP Q12H MARCELINO Last Admin: 12/10/17 17:44 Dose: 40 mg Rosuvastatin Calcium (Crestor) 5 mg PO HS [facility] Physical Exam - Constitutional Appears: Well, No Acute Distress - Head Exam Head Exam: ATRAUMATIC, NORMOCEPHALIC - Eye Exam Eye Exam: absent: Scleral icterus Additional comments: pale conjunctivae - ENT Exam ENT Exam: Normal Exam - Neck Exam Neck exam: Positive for: Normal Inspection. Negative for: Thyromegaly - Respiratory Exam Respiratory Exam: Clear to Auscultation Bilateral - Cardiovascular Exam Cardiovascular Exam: REGULAR RHYTHM - GI/Abdominal Exam GI & Abdominal Exam: Soft. absent: Guarding (Obese on inspection. laparascopic scars), Mass, Rebound, Tenderness - Rectal Exam Rectal Exam: Deferred - Extremities Exam Extremities exam: Positive for: normal inspection - Back Exam Back exam: NORMAL INSPECTION - Neurological Exam Neurological exam: Alert, Oriented x3 - Psychiatric Exam Psychiatric exam: Normal Affect, Normal Mood - Skin Skin Exam: Normal Color Results - Vital Signs Recent Vital Signs: Last Vital Signs Temp 98.2 F 12/10/17 18:17 Pulse 84 12/10/17 18:17 Resp 17 12/10/17 18:17 BP 147/61 12/10/17 18:17 Pulse Ox 100 12/10/17 18:17 - Labs Result Diagrams: 12/10/17 15:11 12/10/17 15:11 Labs: Laboratory Results - last 24 hr 12/10/17 12/10/17 12/10/17 15:11 15:11 15:11 WBC 12.8 H RBC 1.93 L Hgb 5.4 L* D Hct 16.9 L MCV 87.5 D MCH 28.1 MCHC 32.1 L RDW 15.6 H Plt Count 206 MPV 6.8 L Neut % (Auto) 74.9 Lymph % (Auto) 17.1 L [place] % (Auto) 5.7 Eos % (Auto) 2.1 Baso % (Auto) 0.2 Neut # (Auto) 9.6 H Lymph # (Auto) 2.2 [place] # (Auto) 0.7 Eos # (Auto) 0.3 Baso # (Auto) 0.0 PT 10.8 INR 1.0 APTT 31 Sodium 142 Potassium 4.7 Chloride 103 Carbon Dioxide 24 Anion Gap 19 BUN 65 H Creatinine 1.9 H Est GFR ( Amer) 31 Est GFR (Non-Af Amer) 25 Random Glucose 156 H Calcium 9.5 Total Bilirubin 0.3 AST 15 ALT 23 Alkaline Phosphatase 70 Total Protein 6.8 Albumin 3.8 Globulin 3.0 Albumin/Globulin Ratio 1.3 Urine Color Urine Clarity Urine pH Ur Specific [place] Urine Protein Urine Glucose (UA) Urine Ketones Urine Blood Urine Nitrate Urine Bilirubin Urine Urobilinogen Ur Leukocyte Esterase Urine WBC (Auto) Urine RBC (Auto) Ur Squamous Epith Cells Urine Bacteria Stool Occult Blood Blood Type Antibody Screen Antibody Identification 12/10/17 12/10/17 12/10/17 15:11 15:35 16:14 WBC RBC Hgb Hct MCV MCH MCHC RDW Plt Count MPV Neut % (Auto) Lymph % (Auto) [place] % (Auto) Eos % (Auto) Baso % (Auto) Neut # (Auto) Lymph # (Auto) [place] # (Auto) Eos # (Auto) Baso # (Auto) PT INR APTT Sodium Potassium Chloride Carbon Dioxide Anion Gap BUN Creatinine Est GFR ( Amer) Est GFR (Non-Af Amer) Random Glucose Calcium Total Bilirubin AST ALT Alkaline Phosphatase Total Protein Albumin Globulin Albumin/Globulin Ratio Urine Color Colorless Urine Clarity Clear Urine pH 5.0 Ur Specific [place] 1.005 Urine Protein Negative Urine Glucose (UA) Normal Urine Ketones Negative Urine Blood Negative Urine Nitrate Negative Urine Bilirubin Negative Urine Urobilinogen Normal Ur Leukocyte Esterase Neg Urine WBC (Auto) 2 Urine RBC (Auto) < 1 Ur Squamous Epith Cells < 1 Urine Bacteria Rare Stool Occult Blood Positive H Blood Type B POSITIVE Antibody Screen Positive Antibody Identification Anti E Assessment & Plan (1) Anemia Assessment and Plan: slow subacute blood loss anemia. Likely from upper GI tract. Rec: PPI, transfuse PRBCs and stabilize overnight for EGD tomorrow AM Status: Acute (2) Renal insufficiency Status: Acute (3) Hypertension Status: Acute - Date & Time Date: 12/10/17 Time: 18:37
[2017-12-11] MEDS: Albuterol-Ipratrop 3 mg / 0.5 (3 ml) UD INH SCH ×2 (01:24→19:26)
[2017-12-11 07:34] LABS: MEAN CELL VOLUME 85.8 fL (81.0-99.0); MEAN CORPUSCULAR HEMOGLOBIN 28.9 pg (27.0-31.0); MEAN CORPUSCULAR HGB CONC 33.7 g/dL (33.0-37.0); MEAN PLATELET VOLUME 6.9 fL (7.2-11.7); RBC 2.96 Mil/uL (3.80-5.20); RED CELL DISTRIBUTION WIDTH 15.4 % (11.5-14.5); WHITE BLOOD COUNT 11.5 K/uL (4.8-10.8)
[2017-12-11 07:47] LABS: HEMOGLOBIN 8.6 g/dL (11.0-16.0)
[2017-12-11 07:50] LABS: ALB/GLOB RATIO 1.4 (1.0-2.1); ALBUMIN 3.8 g/dL (3.5-5.0)
--- NOTE | 2017-12-11 11:00 | CARD ---
APPROVED REPORT Date of service: 12/10/2017 EKG Measurement Heart [id number] <Conclusion> Normal sinus rhythm Right bundle branch block Abnormal ECG
[2017-12-11] MEDS ORDERED: Etomidate 20 mg/10ml Inj IV ONE (11:08)
[2017-12-11] MEDS: (Novolin R) Insulin Human Regular 100 units/ml vial SC SCH ×2 (17:14→21:15)
--- NOTE | 2017-12-11 20:59 | CP.PCM.HP ---
History of Present Illness - History of Present Illness History of Present Illness: Patient came to the emergency room with abnormal blood test History present illness: 81-year-old female with a history of bronchial asthma, hypertension, diabetes, hypercholesteremia, allergic rhinitis, osteoporosis, diabetic neuropathy, bronchial asthma and bronchitis. Patient also has a chronic renal insufficiency. Chronic pedal edema. Patient recently diagnosed with acute cholecystitis, following that she developed sepsis and is status post a cholecystectomy. Patient was doing well. She received intravenous antibiotic, and sent home after that. But she came to the office with increasing weakness tiredness and fatigability. She was not able to walk, increasing dizziness noted. According to the patient's , she was having few episodes of dark stools for 3-4 days. No nausea no abdominal pain noted no fever. Past medical history: Diabetes hypertension and hypercholesteremia bronchial asthma renal insufficiency chronic pedal edema Allergy and patient is allergic to penicillin. Surgical history: Personal history nonsmoker nonalcoholic, lives with the family review of system: Patient now having increasing abdominal discomfort, abdominal pain, nausea, vomiting. Does not have any bowel movements properly, diarrhea negative. Medications: Patient currently taking omeprazole, zolpidem, gabapentin, losartan, glimepride Levemir, Lasix Vital signs reviewed No neck vein distention noted Chest good air entry bilaterally, no wheezing or rales noted CVS regular heart sound, no murmur noted Significant abdominal diffuse tenderness noted, mostly in the right upper quadrant region. Patient has a edema bilaterally. Patient has a significant deformity in the left wrist, and associated swelling. ONCOLOGY RN alert awake oriented 3, no functional neurological deficit, Severe anemia noted. Repeat WBC also noted to be elevated. Patient was allergic to penicillin, ciprofloxacin, Flagyl ordered. Assessment and recommendation: 81-year-old female with history of diabetes hypertension and hypercholesteremia , bronchial asthma , pedal edema admitted now Recent status post cholecystectomy. Now admitted with acute possible GI bleed. Guaiac positive. Dark stools noted. Patient also having severe hemorrhagic anemia. We will admit her to the hospital. Transmission 2 units. GI evaluation. We will follow the patient Present on Admission - Present on Admission Any Indicators Present on Admission: No History of DVT/PE: No History of Uncontrolled Diabetes: No Urinary Catheter: No Decubitus Ulcer Present: No Past Patient History - Past Medical History & Family History Past Medical History?: Yes - Past Social History Smoking Status: Never Smoked - CARDIAC Hx Cardiac Disorders: Yes Hx Hypertension: Yes - PULMONARY Hx Respiratory Disorders: Yes Hx Asthma: Yes Hx Pneumonia: Yes - NEUROLOGICAL Hx Neurological Disorder: Yes Hx Parkinson's Disease: Yes - HEENT Hx HEENT Problems: No - RENAL Hx Chronic Kidney Disease: No - ENDOCRINE/METABOLIC Hx Endocrine Disorders: Yes Hx Diabetes Mellitus Type 1: Yes Hx Diabetes Mellitus Type 2: Yes - HEMATOLOGICAL/ONCOLOGICAL Hx Blood Disorders: No - INTEGUMENTARY Hx Dermatological Problems: No - MUSCULOSKELETAL/RHEUMATOLOGICAL Hx Musculoskeletal Disorders: Yes Hx Arthritis: Yes Hx Falls: Yes Hx Fractures: Yes (left wrist) - GASTROINTESTINAL Hx Gastrointestinal Disorders: Yes Hx Bowel Surgery: Yes - GENITOURINARY/GYNECOLOGICAL Hx Genitourinary Disorders: No - PSYCHIATRIC Hx Psychophysiologic Disorder: No Hx Substance Use: No - SURGICAL HISTORY Hx Surgeries: Yes Hx Section: Yes (x3) Hx Cholecystectomy: Yes Hx Hysterectomy: Yes Hx Orthopedic Surgery: Yes (left wrist) - ANESTHESIA Hx Anesthesia: Yes Hx Anesthesia Reactions: No Hx Malignant Hyperthermia: No Meds Allergies/Adverse Reactions: Allergies Allergy/AdvReac Type Severity Reaction Status Date / Time Penicillins Allergy RASH Verified 12/10/17 14:22 Results - Vital Signs Recent Vital Signs: Last Vital Signs Temp 98.1 F 12/11/17 15:00 Pulse 94 H 12/11/17 20:05 Resp 20 12/11/17 20:05 BP 152/69 H 12/11/17 20:05 Pulse Ox 96 12/11/17 20:05 - Labs Result Diagrams: 12/13/17 07:21 12/11/17 07:19 Labs: Laboratory Results - last 24 hr 12/10/17 12/10/17 12/11/17 15:11 21:42 06:20 WBC RBC Hgb Hct MCV MCH MCHC RDW Plt Count MPV Sodium Potassium Chloride Carbon Dioxide Anion Gap BUN Creatinine Est GFR ( Amer) Est GFR (Non-Af Amer) POC Glucose (mg/dL) 89 151 H Random Glucose Calcium Total Bilirubin AST ALT Alkaline Phosphatase Total Protein Albumin Globulin Albumin/Globulin Ratio Blood Type B POSITIVE Antibody Screen Positive Antibody Identification Anti E 12/11/17 12/11/17 12/11/17 07:19 07:19 12:36 WBC 11.5 H RBC 2.96 L Hgb 8.6 L D Hct 25.4 L MCV 85.8 MCH 28.9 MCHC 33.7 RDW 15.4 H Plt Count 202 MPV 6.9 L Sodium 142 Potassium 4.6 Chloride 109 H Carbon Dioxide 22 Anion Gap 16 BUN 45 H Creatinine 1.5 H Est GFR ( Amer) 40 Est GFR (Non-Af Amer) 33 POC Glucose (mg/dL) 169 H Random Glucose 155 H Calcium 9.0 Total Bilirubin 1.0 AST 18 ALT 21 Alkaline Phosphatase 73 Total Protein 6.6 Albumin 3.8 Globulin 2.8 Albumin/Globulin Ratio 1.4 Blood Type Antibody Screen Antibody Identification
--- NOTE | 2017-12-11 20:59 | CP.PCM.PN ---
Subjective - Date & Time of Evaluation Date of Evaluation: 12/11/17 Time of Evaluation: 13:54 - Subjective Subjective: Status post endoscopy. Showing evidence of nonbleeding ulcer. Questionable malignancy To be ruled out as per the GA Clinical examination is unremarkable. Patient is feeling slightly better. Tolerating the feeding Will monitor the hemoglobin. And will follow-up the patient Objective - Vital Signs/Intake and Output Vital Signs (last 24 hours): Temp Pulse Resp BP Pulse Ox 98.1 F 94 H 20 152/69 H 96 12/11/17 15:00 12/11/17 20:05 12/11/17 20:05 12/11/17 20:05 12/11/17 20:05 Intake and Output: 12/11/17 12/12/17 18:59 06:59 Intake Total 150 Balance 150 - Medications Medications: Current Medications Albuterol/Ipratropium (Duoneb 3 Mg/0.5 Mg (3 Ml) Ud) 3 ml INH RQ6 [facility] Last Admin: 12/11/17 19:26 Dose: 3 ml Clonidine HCl (Catapres) 0.1 mg PO BID [facility] Last Admin: 12/11/17 17:15 Dose: 0.1 mg Insulin Human Regular (Novolin R) 0 unit SC ACHS [facility] PRN Reason: Protocol Last Admin: 12/11/17 17:14 Dose: 2 unit Losartan Potassium (Cozaar) 50 mg PO DAILY [facility] Last Admin: 12/11/17 09:49 Dose: 50 mg Montelukast Sodium (Singulair) 10 mg PO HS [facility] Last Admin: 12/10/17 21:54 Dose: 10 mg Pantoprazole Sodium (Protonix Inj) 40 mg IVP Q12H [facility] Last Admin: 12/11/17 17:14 Dose: 40 mg Rosuvastatin Calcium (Crestor) 5 mg PO HS [facility] Last Admin: 12/10/17 21:54 Dose: 5 mg Zolpidem Tartrate (Ambien) 5 mg PO HS PRN PRN Reason: Insomnia Last Admin: 12/10/17 21:54 Dose: 5 mg - Labs Labs: 12/11/17 07:19 12/11/17 07:19 PT 10.8 SECONDS (9.7-12.2) 12/10/17 15:11 INR 1.0 12/10/17 15:11 APTT 31 SECONDS (21-34) 12/10/17 15:11
[2017-12-12] MEDS: Albuterol-Ipratrop 3 mg / 0.5 (3 ml) UD INH SCH ×4 (01:14→19:40)
[2017-12-12 07:36] LABS: HEMOGLOBIN 8.8 g/dL (11.0-16.0); MEAN CELL VOLUME 85.5 fL (81.0-99.0); MEAN CORPUSCULAR HEMOGLOBIN 28.3 pg (27.0-31.0); MEAN CORPUSCULAR HGB CONC 33.1 g/dL (33.0-37.0); MEAN PLATELET VOLUME 6.9 fL (7.2-11.7); RBC 3.1 Mil/uL (3.80-5.20); RED CELL DISTRIBUTION WIDTH 16.4 % (11.5-14.5); WHITE BLOOD COUNT 10.3 K/uL (4.8-10.8)
[2017-12-12] MEDS: (Novolin R) Insulin Human Regular 100 units/ml vial SC SCH ×4 (07:50→21:44)
--- NOTE | 2017-12-12 08:02 | CP.PCM.PN ---
Subjective - Date & Time of Evaluation Date of Evaluation: 12/12/17 Time of Evaluation: 07:50 - Subjective Subjective: F/U anemia, GI bleed Denies Rb, melena, fever, chills, CP SOB, VILLA, cough, hematuria, hemoptysis Objective - Vital Signs/Intake and Output Vital Signs (last 24 hours): Temp Pulse Resp BP Pulse Ox 98 F 83 20 174/72 H 97 12/12/17 04:15 12/12/17 07:03 12/12/17 04:15 12/12/17 06:13 12/12/17 04:15 Intake and Output: 12/12/17 12/12/17 06:59 18:59 Intake Total 100 Output Total 650 Balance -550 - Medications Medications: Current Medications Albuterol/Ipratropium (Duoneb 3 Mg/0.5 Mg (3 Ml) Ud) 3 ml INH RQ6 [facility] Last Admin: 12/12/17 01:14 Dose: Not Given Clonidine HCl (Catapres) 0.1 mg PO BID [facility] Last Admin: 12/11/17 17:15 Dose: 0.1 mg Insulin Human Regular (Novolin R) 0 unit SC ACHS [facility] PRN Reason: Protocol Last Admin: 12/12/17 07:50 Dose: 2 unit Losartan Potassium (Cozaar) 50 mg PO DAILY [facility] Last Admin: 12/11/17 09:49 Dose: 50 mg Montelukast Sodium (Singulair) 10 mg PO HS [facility] Last Admin: 12/11/17 21:18 Dose: 10 mg Pantoprazole Sodium (Protonix Inj) 40 mg IVP Q12H [facility] Last Admin: 12/12/17 05:03 Dose: 40 mg Rosuvastatin Calcium (Crestor) 5 mg PO HS [facility] Last Admin: 12/11/17 21:18 Dose: 5 mg Zolpidem Tartrate (Ambien) 5 mg PO HS PRN PRN Reason: Insomnia Last Admin: 12/11/17 21:18 Dose: 5 mg - Labs Labs: 12/12/17 07:24 12/11/17 07:19 PT 10.8 SECONDS (9.7-12.2) 12/10/17 15:11 INR 1.0 12/10/17 15:11 APTT 31 SECONDS (21-34) 12/10/17 15:11 - Constitutional Appears: Well - Respiratory Exam Respiratory Exam: Clear to Ausculation Bilateral - Cardiovascular Exam Cardiovascular Exam: RRR - GI/Abdominal Exam GI & Abdominal Exam: Soft, Normal Bowel Sounds. absent: Guarding, Tenderness, Mass, Rebound - Neurological Exam Neurological Exam: Alert, Oriented x3 Assessment and Plan (1) Gastric ulcer Status: Acute (2) Anemia Assessment & Plan: posssible GI bleed. Ulcers. No visible vessel. No blood in stomach. Rec_ PPI, check Hb, check h pylori. Status: Acute (3) Renal insufficiency Status: Acute (4) Hypertension Status: Acute
[2017-12-12 17:22] VITALS: RESP 20
[2017-12-13] MEDS: Albuterol-Ipratrop 3 mg / 0.5 (3 ml) UD INH SCH ×4 (01:42→21:02)
[2017-12-13 07:32] LABS: BASO % 0.5 % (0.0-2.0); EOS # 0.3 K/uL (0.0-0.7); HEMOGLOBIN 8.2 g/dL (11.0-16.0); LYMPH # 1.7 K/uL (1.0-4.3); LYMPH % 17.3 % (20.0-40.0); MEAN CORPUSCULAR HGB CONC 33.7 g/dL (33.0-37.0); MEAN PLATELET VOLUME 6.9 fL (7.2-11.7); MONO # 0.7 K/uL (0.0-0.8); MONO % 7.4 % (0.0-10.0); NEUT # 7.2 K/uL (1.8-7.0); NEUT % 71.8 % (50.0-75.0); NRBC % 0.1 % (0.0-2.0); RBC 2.82 Mil/uL (3.80-5.20)
[2017-12-13] MEDS: (Novolin R) Insulin Human Regular 100 units/ml vial SC SCH ×4 (08:44→22:10)
--- NOTE | 2017-12-13 09:18 | CP.PCM.PN ---
Subjective - Date & Time of Evaluation Date of Evaluation: 12/13/17 Time of Evaluation: 09:00 - Subjective Subjective: F/U anemia. Occ epig pain- mild Denies RB, diarrhea, melena, fever, chills, SZ, LOC, VILLA, cough CP, SOB Objective - Vital Signs/Intake and Output Vital Signs (last 24 hours): Temp Pulse Resp BP Pulse Ox 97.6 F 81 20 147/62 96 12/13/17 07:35 12/13/17 07:35 12/13/17 07:35 12/13/17 07:35 12/13/17 07:35 - Medications Medications: Current Medications Albuterol/Ipratropium (Duoneb 3 Mg/0.5 Mg (3 Ml) Ud) 3 ml INH RQ6 [facility] Last Admin: 12/13/17 08:03 Dose: 3 ml Clonidine HCl (Catapres) 0.1 mg PO BID [facility] Last Admin: 12/12/17 17:20 Dose: 0.1 mg Insulin Human Regular (Novolin R) 0 unit SC ACHS [facility] PRN Reason: Protocol Last Admin: 12/13/17 08:44 Dose: 2 unit Losartan Potassium (Cozaar) 50 mg PO DAILY [facility] Last Admin: 12/12/17 10:40 Dose: 50 mg Montelukast Sodium (Singulair) 10 mg PO HS [facility] Last Admin: 12/12/17 21:04 Dose: 10 mg Pantoprazole Sodium (Protonix Inj) 40 mg IVP Q12H [facility] Last Admin: 12/13/17 05:01 Dose: 40 mg Rosuvastatin Calcium (Crestor) 5 mg PO HS [facility] Last Admin: 12/12/17 21:04 Dose: 5 mg Zolpidem Tartrate (Ambien) 5 mg PO HS PRN PRN Reason: Insomnia Last Admin: 12/12/17 21:04 Dose: 5 mg - Labs Labs: 12/13/17 07:21 12/11/17 07:19 PT 10.8 SECONDS (9.7-12.2) 12/10/17 15:11 INR 1.0 12/10/17 15:11 APTT 31 SECONDS (21-34) 12/10/17 15:11 - Constitutional Appears: Non-toxic - Respiratory Exam Respiratory Exam: Clear to Ausculation Bilateral - Cardiovascular Exam Cardiovascular Exam: RRR - GI/Abdominal Exam GI & Abdominal Exam: Soft, Normal Bowel Sounds. absent: Tenderness, Mass - Extremities Exam Extremities Exam: absent: Calf Tenderness - Neurological Exam Neurological Exam: Alert, Awake Assessment and Plan (1) Gastric ulcer Assessment & Plan: No a ctive bleeding. Check Hb, protonix, check h pylori Status: Acute (2) Anemia Status: Acute (3) Renal insufficiency Status: Acute (4) Hypertension Status: Acute
[2017-12-13] MEDS ORDERED: Ferric Sodium Gluconat Complex 62.5 mg/5 ml Vial IVPB STA (10:27)
[2017-12-13] MEDS ORDERED: Ferric Sodium Gluconat Complex 125 MG in Sodium Chloride 0.9% 100 ML IVPB ONE (11:00)
--- NOTE | 2017-12-13 13:56 | CP.PCM.PN ---
Subjective - Date & Time of Evaluation Date of Evaluation: 12/12/17 Time of Evaluation: 13:56 - Subjective Subjective: Patient is feeling slightly better. No more bleeding in the rectally noted. Patient is feeling better, no chest pain or shortness of breath Clinical examination is unremarkable. Hemoglobin is stable at this time. Assessment: 81-year-old female with diabetes hypertension hypercholesterolemia status post a cholecystectomy admitted now with a GI bleed. Status post endoscopy. Duodenal ulcer. On Protonix. Objective - Vital Signs/Intake and Output Vital Signs (last 24 hours): Temp Pulse Resp BP Pulse Ox 97.6 F 80 20 147/62 97 12/13/17 07:35 12/13/17 12:23 12/13/17 07:35 12/13/17 07:35 12/13/17 12:23 - Medications Medications: Current Medications Albuterol/Ipratropium (Duoneb 3 Mg/0.5 Mg (3 Ml) Ud) 3 ml INH RQ6 [facility] Last Admin: 12/13/17 13:44 Dose: 3 ml Clonidine HCl (Catapres) 0.1 mg PO BID [facility] Last Admin: 12/13/17 10:41 Dose: 0.1 mg Insulin Human Regular (Novolin R) 0 unit SC ACHS [facility] PRN Reason: Protocol Last Admin: 12/13/17 13:01 Dose: 5 unit Losartan Potassium (Cozaar) 50 mg PO DAILY [facility] Last Admin: 12/13/17 10:41 Dose: 50 mg Montelukast Sodium (Singulair) 10 mg PO HS [facility] Last Admin: 12/12/17 21:04 Dose: 10 mg Pantoprazole Sodium (Protonix Inj) 40 mg IVP Q12H [facility] Last Admin: 12/13/17 05:01 Dose: 40 mg Rosuvastatin Calcium (Crestor) 5 mg PO HS [facility] Last Admin: 12/12/17 21:04 Dose: 5 mg Zolpidem Tartrate (Ambien) 5 mg PO HS PRN PRN Reason: Insomnia Last Admin: 12/12/17 21:04 Dose: 5 mg - Labs Labs: 12/13/17 07:21 12/11/17 07:19 PT 10.8 SECONDS (9.7-12.2) 12/10/17 15:11 INR 1.0 12/10/17 15:11 APTT 31 SECONDS (21-34) 12/10/17 15:11
[2017-12-13 14:46] LABS: HEMOGLOBIN 8.1 g/dL (11.0-16.0); MEAN CELL VOLUME 87.3 fL (81.0-99.0); MEAN CORPUSCULAR HEMOGLOBIN 28.7 pg (27.0-31.0); MEAN CORPUSCULAR HGB CONC 32.9 g/dL (33.0-37.0); RBC 2.83 Mil/uL (3.80-5.20); RED CELL DISTRIBUTION WIDTH 16.2 % (11.5-14.5); WHITE BLOOD COUNT 9.4 K/uL (4.8-10.8)
[2017-12-13] MEDS: Pantoprazole 40 mg EC Tab PO SCH (21:52)
[2017-12-14] MEDS: Albuterol-Ipratrop 3 mg / 0.5 (3 ml) UD INH SCH ×3 (01:13→13:06)
[2017-12-14 07:57] VITALS: BP 167/67; PULSE 93; TEMP 97.7; O2SAT 97
--- NOTE | 2017-12-14 08:22 | CP.PCM.PN ---
Subjective - Date & Time of Evaluation Date of Evaluation: 12/14/17 Time of Evaluation: 08:00 - Subjective Subjective: F/U GI bleed Denies RB, melena, CP, SOB, abdom pain, fever, chills. VILLA cough Objective - Vital Signs/Intake and Output Vital Signs (last 24 hours): Temp Pulse Resp BP Pulse Ox 97.7 F 93 H 20 167/67 H 97 12/14/17 07:00 12/14/17 07:00 12/14/17 07:00 12/14/17 07:00 12/14/17 07:00 Intake and Output: 12/14/17 12/14/17 06:59 18:59 Intake Total 480 Balance 480 - Medications Medications: Current Medications Albuterol/Ipratropium (Duoneb 3 Mg/0.5 Mg (3 Ml) Ud) 3 ml INH RQ6 [facility] Last Admin: 12/14/17 08:08 Dose: 3 ml Clonidine HCl (Catapres) 0.1 mg PO BID [facility] Last Admin: 12/13/17 18:15 Dose: 0.1 mg Insulin Human Regular (Novolin R) 0 unit SC ACHS [facility] PRN Reason: Protocol Last Admin: 12/13/17 22:10 Dose: Not Given Losartan Potassium (Cozaar) 50 mg PO DAILY [facility] Last Admin: 12/13/17 10:41 Dose: 50 mg Montelukast Sodium (Singulair) 10 mg PO HS [facility] Last Admin: 12/13/17 21:52 Dose: 10 mg Pantoprazole Sodium (Protonix Ec Tab) 40 mg PO Q12 [facility] Last Admin: 12/13/17 21:52 Dose: 40 mg Rosuvastatin Calcium (Crestor) 5 mg PO HS [facility] Last Admin: 12/13/17 21:52 Dose: 5 mg Zolpidem Tartrate (Ambien) 5 mg PO HS PRN PRN Reason: Insomnia Last Admin: 12/13/17 21:53 Dose: 5 mg - Labs Labs: 12/13/17 14:41 12/11/17 07:19 PT 10.8 SECONDS (9.7-12.2) 12/10/17 15:11 INR 1.0 12/10/17 15:11 APTT 31 SECONDS (21-34) 12/10/17 15:11 - Constitutional Appears: Well - Respiratory Exam Respiratory Exam: Clear to Ausculation Bilateral - Cardiovascular Exam Cardiovascular Exam: RRR - Neurological Exam Neurological Exam: Alert, Oriented x3 Assessment and Plan (1) Gastric ulcer Assessment & Plan: Hb steady- 8.2, 8.1 REc- PPI. Check h pylori Status: Acute (2) Anemia Status: Acute (3) Renal insufficiency Status: Acute (4) Hypertension Status: Acute
[2017-12-14] MEDS: (Novolin R) Insulin Human Regular 100 units/ml vial SC SCH ×2 (09:14→12:20)
[2017-12-14] MEDS: Pantoprazole 40 mg EC Tab PO SCH (09:14)
[2017-12-14 09:26] LABS: HEMOGLOBIN 8.9 g/dL (11.0-16.0); MEAN CELL VOLUME 85.9 fL (81.0-99.0); MEAN CORPUSCULAR HGB CONC 33.7 g/dL (33.0-37.0); RBC 3.09 Mil/uL (3.80-5.20); WHITE BLOOD COUNT 10.2 K/uL (4.8-10.8)
[2017-12-14] MEDS ORDERED: Ferric Sodium Gluconat Complex 62.5 mg/5 ml Vial IVPB SCH (11:45)
[2017-12-14] MEDS ORDERED: Ferric Sodium Gluconat Complex 125 MG in Sodium Chloride 0.9% 100 ML IVPB SCH (12:00)
--- NOTE | 2017-12-29 19:18 | CP.PCM.PN ---
Subjective - Date & Time of Evaluation Date of Evaluation: 12/13/17 Time of Evaluation: 19:17 - Subjective Subjective: Patient now feeling better. No more active bleeding noted. No chest pain. Minimal cough Vital signs stable. Chest good air entry Regular heart sound nontender abdomen no pedal edema Assessment: 82-year-old female with a history of recent cholecystectomy, diabetes hypertension high cholesterol renal insufficiency bilateral pedal edema admitted with the severe anemia, GI bleed, possible gastric ulcer nonbleeding now. Repeat hemoglobin tomorrow stable if it is can be discharged home tomorrow Objective - Vital Signs/Intake and Output Vital Signs (last 24 hours): Temp Pulse Resp BP Pulse Ox 97.7 F 93 H 20 167/67 H 97 12/14/17 07:00 12/14/17 07:00 12/14/17 07:00 12/14/17 07:00 12/14/17 07:00 - Labs Labs: 12/14/17 09:21 12/11/17 07:19 PT 10.8 SECONDS (9.7-12.2) 12/10/17 15:11 INR 1.0 12/10/17 15:11 APTT 31 SECONDS (21-34) 12/10/17 15:11
--- NOTE | 2017-12-29 19:18 | CP.PCM.DIS ---
Provider - Provider Date of Admission: 12/10/17 15:36 Attending physician: Sangita Sun MD Time Spent in preparation of Discharge (in minutes): 45 Hospital Course - Lab Results Lab Results: Most Recent Lab Values WBC 10.2 K/uL (4.8-10.8) 12/14/17 09:21 RBC 3.09 Mil/uL (3.80-5.20) L 12/14/17 09:21 Hgb 8.9 g/dL (11.0-16.0) L 12/14/17 09:21 Hct 26.5 % (34.0-47.0) L 12/14/17 09:21 MCV 85.9 fL (81.0-99.0) 12/14/17 09:21 MCH 29.0 pg (27.0-31.0) 12/14/17 09:21 MCHC 33.7 g/dL (33.0-37.0) 12/14/17 09:21 RDW 16.0 % (11.5-14.5) H 12/14/17 09:21 Plt Count 168 K/uL (130-400) 12/14/17 09:21 MPV 7.0 fL (7.2-11.7) L 12/14/17 09:21 Neut % (Auto) 71.8 % (50.0-75.0) 12/13/17 07:21 Lymph % (Auto) 17.3 % (20.0-40.0) L 12/13/17 07:21 Morris % (Auto) 7.4 % (0.0-10.0) 12/13/17 07:21 Eos % (Auto) 3.0 % (0.0-4.0) 12/13/17 07:21 Baso % (Auto) 0.5 % (0.0-2.0) 12/13/17 07:21 Neut # (Auto) 7.2 K/uL (1.8-7.0) H 12/13/17 07:21 Lymph # (Auto) 1.7 K/uL (1.0-4.3) 12/13/17 07:21 Morris # (Auto) 0.7 K/uL (0.0-0.8) 12/13/17 07:21 Eos # (Auto) 0.3 K/uL (0.0-0.7) 12/13/17 07:21 Baso # (Auto) 0.0 K/uL (0.0-0.2) 12/13/17 07:21 PT 10.8 SECONDS (9.7-12.2) 12/10/17 15:11 INR 1.0 12/10/17 15:11 APTT 31 SECONDS (21-34) 12/10/17 15:11 Sodium 142 mmol/L (132-148) 12/11/17 07:19 Potassium 4.6 mmol/L (3.6-5.2) 12/11/17 07:19 Chloride 109 mmol/L (98-107) H 12/11/17 07:19 Carbon Dioxide 22 mmol/L (22-30) 12/11/17 07:19 Anion Gap 16 (10-20) 12/11/17 07:19 BUN 45 mg/dL (7-17) H 12/11/17 07:19 Creatinine 1.5 mg/dL (0.7-1.2) H 12/11/17 07:19 Est GFR ( Amer) 40 12/11/17 07:19 Est GFR (Non-Af Amer) 33 12/11/17 07:19 POC Glucose (mg/dL) 367 mg/dL (65-110) H 12/14/17 11:23 Random Glucose 155 mg/dL (65-105) H 12/11/17 07:19 Calcium 9.0 mg/dl (8.6-10.4) 12/11/17 07:19 Total Bilirubin 1.0 mg/dL (0.2-1.3) 12/11/17 07:19 AST 18 U/L (14-36) 12/11/17 07:19 ALT 21 U/L (9-52) 12/11/17 07:19 Alkaline Phosphatase 73 U/L (38-126) 12/11/17 07:19 Total Protein 6.6 g/dL (6.3-8.3) 12/11/17 07:19 Albumin 3.8 g/dL (3.5-5.0) 12/11/17 07:19 Globulin 2.8 gm/dL (2.2-3.9) 08/16/18 07:19 Albumin/Globulin Ratio 1.4 (1.0-2.1) 12/11/17 07:19 Urine Color Colorless (YELLOW) 12/10/17 15:35 Urine Clarity Clear (Clear) 12/10/17 15:35 Urine pH 5.0 (5.0-8.0) 12/10/17 15:35 Ur Specific [place] 1.005 (1.003-1.030) 12/10/17 15:35 Urine Protein Negative mg/dL (NEGATIVE) 12/10/17 15:35 Urine Glucose (UA) Normal mg/dL (Normal) 12/10/17 15:35 Urine Ketones Negative mg/dL (NEGATIVE) 12/10/17 15:35 Urine Blood Negative (NEGATIVE) 12/10/17 15:35 Urine Nitrate Negative (NEGATIVE) 12/10/17 15:35 Urine Bilirubin Negative (NEGATIVE) 12/10/17 15:35 Urine Urobilinogen Normal mg/dL (0.2-1.0) 12/10/17 15:35 Ur Leukocyte Esterase Neg Royce/uL (Negative) 12/10/17 15:35 Urine WBC (Auto) 2 /hpf (0-5) 12/10/17 15:35 Urine RBC (Auto) < 1 /hpf (0-3) 12/10/17 15:35 Ur Squamous Epith Cells < 1 /hpf (0-5) 12/10/17 15:35 Urine Bacteria Rare (<OCC) 12/10/17 15:35 Stool Occult Blood Positive (NEGATIVE) H 12/10/17 16:14 Stool H. pylori Ag Not detected (Not Detected) 12/12/17 20:39 H. pylori Source Stool 12/12/17 20:39 Blood Type B POSITIVE 12/10/17 15:11 Antibody Screen Positive 12/10/17 15:11 Antibody Identification Anti E 12/10/17 15:11 - Hospital Course Hospital Course: Patient came to the emergency room with abnormal blood test History present illness: 81-year-old female with a history of bronchial asthma, hypertension, diabetes, hypercholesteremia, allergic rhinitis, osteoporosis, diabetic neuropathy, bronchial asthma and bronchitis. Patient also has a chronic renal insufficiency. Chronic pedal edema. Patient recently diagnosed with acute cholecystitis, following that she developed sepsis and is status post a cholecystectomy. Patient was doing well. She received intravenous antibiotic, and sent home after that. But she came to the office with increasing weakness tiredness and fatigability. She was not able to walk, increasing dizziness noted. According to the patient's , she was having few episodes of dark stools for 3-4 days. No nausea no abdominal pain noted no fever. Past medical history: Diabetes hypertension and hypercholesteremia bronchial asthma renal insufficiency chronic pedal edema Allergy and patient is allergic to penicillin. Surgical history: Personal history nonsmoker nonalcoholic, lives with the family review of system: Patient now having increasing abdominal discomfort, abdominal pain, nausea, vomiting. Does not have any bowel movements properly, diarrhea negative. Medications: Patient currently taking omeprazole, zolpidem, gabapentin, losartan, glimepride Levemir, Lasix Vital signs reviewed No neck vein distention noted Chest good air entry bilaterally, no wheezing or rales noted CVS regular heart sound, no murmur noted Significant abdominal diffuse tenderness noted, mostly in the right upper quadrant region. Patient has a edema bilaterally. Patient has a significant deformity in the left wrist, and associated swelling. [employer] alert awake oriented 3, no functional neurological deficit, Severe anemia noted. Repeat WBC also noted to be elevated. Patient was allergic to penicillin, ciprofloxacin, Flagyl ordered. Assessment and recommendation: 81-year-old female with history of diabetes hypertension and hypercholesteremia , bronchial asthma , pedal edema admitted now Recent status post cholecystectomy. Now admitted with acute possible GI bleed. Guaiac positive. Dark stools noted. Patient also having severe hemorrhagic anemia. We will admit her to the hospital. transfusion 2 units GI evaluation. We will follow the patient Course in the Hospital: Patient was admitted to the telemetry. Patient started intravenous IV fluid. Proton pump inhibitor. Transfusion started. GI evaluation was called in. She also underwent upper endoscopy. Upper endoscopy showing evidence of gastric ulcer, but no bleeding noted and also clear base of ulcer noted Biopsy was taken. Patient hemoglobin was monitored. She received also Ferrlecit intravenously. Clinically stable. She'll be discharged home. Follow up as an outpatient Final diagnoses: Acute GI bleed, possible gastric ulcer. Patient will continue Protonix twice a day. GI follow up as an outpatient. Will follow the patient. Discharge Exam - Head Exam Head Exam: ATRAUMATIC, NORMOCEPHALIC Discharge Plan - Discharge Medications Prescriptions: Pantoprazole [Protonix EC Tab] 40 mg PO Q12 #60 ect - Follow Up Plan Condition: FAIR Disposition: HOME/ ROUTINE Instructions: Gastric Ulcer (DC), Gastrointestinal Bleeding (DC), Pantoprazole , Normocytic Normochromic Anemia (DC), Renal Failure Diet (DC) Additional Instructions: Patient is cleared for discharge as per Dr Sun. Please call & make a follow up appointment w/ Dr Sun within a week. New prescription for Protonix sent to the pharmacy. If any of your symptoms return or worsen please come back to the emergency room. Referrals: Sangita Sun MD [Staff Provider] -
== END 2017-12-14 13:42 | disposition home or self-care (01) | DRG 379 ==
LOC: C.ER 14:07 → C.9E 15:36 → C.6T 19:29
PROVIDERS: ADMIT Internal Medicine; ATTEND Internal Medicine
PROC: 30233N1 Transfusion of Nonautologous Red Blood Cells into Peripheral Vein, Percutaneous Approach (ICD-10-PCS; principal; 2017-12-10)
PROC: 0DB88ZX Excision of Small Intestine, Via Natural or Artificial Opening Endoscopic, Diagnostic (ICD-10-PCS; 2017-12-11)
DX: K92.2 Gastrointestinal hemorrhage, unspecified (principal); D50.0 Iron deficiency anemia secondary to blood loss (chronic); I12.9 Hypertensive chronic kidney disease with stage 1 through stage 4 chronic kidney disease, or unspecified chronic kidney disease; E11.22 Type 2 diabetes mellitus with diabetic chronic kidney disease; N18.9 Chronic kidney disease, unspecified; E78.00 Pure hypercholesterolemia, unspecified; G20 Parkinson's disease; J45.909 Unspecified asthma, uncomplicated; M81.0 Age-related osteoporosis without current pathological fracture; Z88.0 Allergy status to penicillin; Z79.4 Long term (current) use of insulin